=== PATIENT | male | born 1985 | race Caucasian/White ===

== ENCOUNTER 2019-12-28 09:28 | Outpatient (REF) | payer MEDICAID, SELFPAY | END 2019-12-28 09:29 | disposition home or self-care (01) | LOC: HO.LAB 09:28 | PROVIDERS: Visit Provider Internal Medicine | DX: Z20.828 Contact with and (suspected) exposure to other viral communicable diseases (principal) | CPT/HCPCS: C9803; U0003 ==

== ENCOUNTER 2020-01-25 10:51 | Outpatient (REF) | payer MEDICAID, SELFPAY ==
[2020-01-25 12:00] LABS: Anion Gap 13 (12-20); Blood Urea Nitrogen 9 mg/dL (9-16); Calcium 9.1 mg/dL (8.4-10.2); Carbon Dioxide 30 mmol/L (22-29); Chloride 99 mmol/L (96-108); Estimated Glomerular Filt Rate > 60; Potassium 3.2 mmol/l (3.3-5.1); Sodium 139 mmol/L (135-145)
[2020-01-25 12:22] LABS: Renal w Reflex Lab Use Only Order verified
[2020-01-30 10:27] LABS: Metanephrine, Free <25 pg/mL (<=57); Normetanephrines, Free 78 pg/mL (<=148); Total Metanephrine, Free 78 pg/mL (<=205)
[2020-02-05 11:41] LABS: Catecholamine Frac, Total 875 pg/mL
== END 2020-01-25 10:52 | disposition home or self-care (01) ==
LOC: HO.LAB 10:51
PROVIDERS: PCP Internal Medicine Geriatric Medicine; Visit Provider Internal Medicine Nephrology
DX: E87.6 Hypokalemia (principal); R00.2 Palpitations; I25.2 Old myocardial infarction; I10 Essential (primary) hypertension
CPT/HCPCS: 80051; 82088; 82310; 82384; 82565; 83835; 84100; 84520

== ENCOUNTER 2020-04-07 11:37 | Outpatient (REF) | payer MEDICAID, SELFPAY ==
--- NOTE | ~2020-04-07 | XR_ITS ---
EXAMINATION: THORACIC AND LUMBAR SPINE X-RAY CLINICAL INFORMATION: Back pain and right-sided sciatica COMPARISON: None TECHNIQUE: 3 views of the thoracic spine including swimmer's view and 5 views of the lumbar spine FINDINGS: Thoracic spine: The proximal thoracic spine is not well visualized on the lateral or swimmer's view. Bone alignment is normal. No fracture or dislocation is seen. There is degenerative spondylosis of the lower thoracic spine. Paraspinal soft tissues are unremarkable. Lumbar spine: There is mild curvature of the lower lumbar spine to the right. Bone alignment is otherwise normal. No fracture or dislocation is seen. Disc spaces are normal. There is mild degenerative spondylosis of the proximal lumbar spine. Facet joints are normal. XR/XR thoracic spine 3V IMPRESSION: Thoracic spine: Limited visualization of the proximal thoracic spine on the swimmer's and lateral view. Mild degenerative spondylosis of the lower thoracic spine. Lumbar spine: Mild curvature of the lower lumbar spine to the right. Mild degenerative spondylosis of the proximal lumbar spine.
--- NOTE | ~2020-04-07 | XR_ITS ---
EXAMINATION: THORACIC AND LUMBAR SPINE X-RAY CLINICAL INFORMATION: Back pain and right-sided sciatica COMPARISON: None TECHNIQUE: 3 views of the thoracic spine including swimmer's view and 5 views of the lumbar spine FINDINGS: Thoracic spine: The proximal thoracic spine is not well visualized on the lateral or swimmer's view. Bone alignment is normal. No fracture or dislocation is seen. There is degenerative spondylosis of the lower thoracic spine. Paraspinal soft tissues are unremarkable. Lumbar spine: There is mild curvature of the lower lumbar spine to the right. Bone alignment is otherwise normal. No fracture or dislocation is seen. Disc spaces are normal. There is mild degenerative spondylosis of the proximal lumbar spine. Facet joints are normal. XR/XR lumbar spine 4V min IMPRESSION: Thoracic spine: Limited visualization of the proximal thoracic spine on the swimmer's and lateral view. Mild degenerative spondylosis of the lower thoracic spine. Lumbar spine: Mild curvature of the lower lumbar spine to the right. Mild degenerative spondylosis of the proximal lumbar spine.
[2020-04-07 12:17] LABS: MANUAL DIFF FLAG NO
[2020-04-07 12:20] LABS: Basophils Absolute Auto 0.1 X10*3/uL (0.0-0.2); Basophils Percent Auto 0.6 % (0-2); Eosinophils Absolute Auto 0.2 X10*3/uL (0.0-0.4); Eosinophils Percent Auto 2.1 % (0-4); Hematocrit 46.6 % (42-52); Hemoglobin 16.2 g/dl (14.0-18.0); Imm Gran Abs Auto 0.03 X10*3/uL (0.00-0.03); Imm Gran Pct Auto 0.4 % (0.0-0.4); Lymphocytes Absolute Auto 2.1 X10*3/uL (1.2-4.9); Lymphocytes Percent Auto 26.2 % (20-40); Mean Corpuscular HGB Conc 34.8 g/dl (31.0-36.0); Mean Corpuscular Hemoglobin 27.6 pg (27.0-33.0); Mean Corpuscular Volume 79.3 fL (80-98); Mean Platelet Volume 11.2 fL (9.4-12.4); Monocytes Absolute Auto 0.5 X10*3/uL (0.1-1.2); Monocytes Percent Auto 6.2 % (2-11); Neutrophils Absolute Auto 5.2 X10*3/uL (2.0-8.3); Neutrophils Percent Auto 64.5 % (45-73); Platelet Count 258 X10*3/uL (160-400); Red Blood Count 5.88 X10*6/uL (4.60-5.80); Red Cell Distribution Width 13.7 % (11.0-16.0)
[2020-04-07 12:47] LABS: Estimated Average Glucose 160 mg/dL; Hemoglobin A1c % 7.2 %
[2020-04-07 12:54] LABS: Alanine Aminotransferase 78 U/L (0-40); Albumin Level 4.2 g/dL (3.5-5.0); Alkaline Phosphatase 70 U/L (39-117); Anion Gap 13 (12-20); Aspartate Amino Transferase 45 U/L (5-37); Bilirubin Total 0.8 mg/dL (0.0-1.0); Blood Urea Nitrogen 8 mg/dL (9-16); Calcium 9.2 mg/dL (8.4-10.2); Carbon Dioxide 30 mmol/L (22-29); Chloride 99 mmol/L (96-108); Cholesterol 222 mg/dL; Estimated Glomerular Filt Rate > 60; Glucose Random 140 mg/dL (60-115); HDL Cholesterol 30 mg/dL; LDL Cholesterol Calculated 162 mg/dl; Potassium 3.2 mmol/L (3.3-5.1); Sodium 139 mmol/L (135-145); Total Protein 7.6 g/dL (6.5-8.0); Triglycerides 152 mg/dL
[2020-04-07 12:58] LABS: Microalbum/Creatinine Ratio Ur 35.5 ug/mg cr
[2020-04-07 13:03] LABS: TSH reflex Free T4 1.19 uIU/mL (0.32-4.0); Vitamin D 25-OH Total 20.8 ng/mL (>30)
== END 2020-04-07 11:38 | disposition home or self-care (01) ==
LOC: HO.LAB 11:37
PROVIDERS: Visit Provider Nurse Practitioner Family
DX: E66.01 Morbid (severe) obesity due to excess calories (principal); I10 Essential (primary) hypertension; I16.0 Hypertensive urgency; M54.41 Lumbago with sciatica, right side; M54.9 Dorsalgia, unspecified
CPT/HCPCS: 36415; 72072; 72110; 80053; 80061; 82043; 82306; 83036; 84443; 85025

== ENCOUNTER 2020-04-17 09:00 | Outpatient (REF) | payer MEDICAID, SELFPAY | END 2020-04-17 09:01 | disposition home or self-care (01) | LOC: HO.LAB 09:00 | PROVIDERS: PCP Nurse Practitioner Family; Visit Provider Internal Medicine | DX: Z20.822 Contact with and (suspected) exposure to COVID-19 (principal) | CPT/HCPCS: 36415; C9803; U0003; U0005 ==

== ENCOUNTER 2020-04-30 13:42 | Emergency (ER) | payer MEDICAID, SELFPAY ==
--- NOTE | ~2020-04-30 | XR_ITS ---
EXAMINATION: XR KNEE, BILATERAL XR ANKLE, LEFT CLINICAL INFORMATION: Fall, pain. COMPARISON: Left ankle 09/08/2019. TECHNIQUE: 4 views each knee. Left ankle 3 views. FINDINGS: LEFT KNEE: The tricompartment joint space is maintained normal. No fracture, bony erosive changes or loose body seen. RIGHT KNEE: The tricompartment joint space is normal. There is no bony erosive changes. There are no loose bodies seen. LEFT ANKLE: There is lateral malleolar soft tissue swelling. There is an old healed lateral malleolar fracture. The ankle mortise and subtalar joints are normal. No acute fracture or dislocation seen. XR/XR knee LT 4V IMPRESSION: Unremarkable bilateral knee exam. Moderate lateral malleolar soft tissue swelling. There is an old healed lateral malleolar fracture from 2019. No recurrent acute fracture seen.
--- NOTE | ~2020-04-30 | XR_ITS ---
EXAMINATION: XR KNEE, BILATERAL XR ANKLE, LEFT CLINICAL INFORMATION: Fall, pain. COMPARISON: Left ankle 09/08/2019. TECHNIQUE: 4 views each knee. Left ankle 3 views. FINDINGS: LEFT KNEE: The tricompartment joint space is maintained normal. No fracture, bony erosive changes or loose body seen. RIGHT KNEE: The tricompartment joint space is normal. There is no bony erosive changes. There are no loose bodies seen. LEFT ANKLE: There is lateral malleolar soft tissue swelling. There is an old healed lateral malleolar fracture. The ankle mortise and subtalar joints are normal. No acute fracture or dislocation seen. XR/XR ankle LT min 3V IMPRESSION: Unremarkable bilateral knee exam. Moderate lateral malleolar soft tissue swelling. There is an old healed lateral malleolar fracture from 2019. No recurrent acute fracture seen.
--- NOTE | ~2020-04-30 | XR_ITS ---
EXAMINATION: XR KNEE, BILATERAL XR ANKLE, LEFT CLINICAL INFORMATION: Fall, pain. COMPARISON: Left ankle 09/08/2019. TECHNIQUE: 4 views each knee. Left ankle 3 views. FINDINGS: LEFT KNEE: The tricompartment joint space is maintained normal. No fracture, bony erosive changes or loose body seen. RIGHT KNEE: The tricompartment joint space is normal. There is no bony erosive changes. There are no loose bodies seen. LEFT ANKLE: There is lateral malleolar soft tissue swelling. There is an old healed lateral malleolar fracture. The ankle mortise and subtalar joints are normal. No acute fracture or dislocation seen. XR/XR knee RT 4V IMPRESSION: Unremarkable bilateral knee exam. Moderate lateral malleolar soft tissue swelling. There is an old healed lateral malleolar fracture from 2019. No recurrent acute fracture seen.
[2020-04-30 13:55] VITALS: BP 211/126; PULSE 90; RESP 16; TEMP 36.9; O2SAT 96; BMI 48.6
--- NOTE | 2020-04-30 14:14 | ED_ITS ---
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 The patient tells me he tripped and fell landing on both of his knees. Denies hitting his head or loss of consciousness. Here with complaints of bilateral knee pain left greater than right and left ankle pain. No headache, nausea, vomiting, vision changes, chest pain. Of note, the patient is noted to be hypertensive on arrival. He tells me that he has blood pressure is managed by his primary products inspectors and always runs high. They did increase his dose of Coreg 1 month ago from 12.5 mg to 25 mg twice daily. He has been compliant w ith his medications and took his doses this morning. He is currently taking norvasc 10mg daily, amiloride 5mg daily, coreg 25mg BID, hydralazine 50mg TID, doxazosin 2mg BID. Related Data Previous Rx's Medication Instructions Recorded acetaminophen [Tylenol] 650 mg PO Q6H PRN #30 tab 04/30/20 cyclobenzaprine 10 mg PO TID PRN #10 tab 04/30/20 minoxidil 5 mg PO BID #30 tab 04/30/20 Allergies Allergy/AdvReac Type Severity Reaction Status Date / Time No Known Allergies Allergy Unverified 11/08/19 19:05 [No Known Allergies*] Review of Systems Review of Systems: Yes all other systems are reviewed and are negative Constitutional: Constitutional: Reports no additional constitutional complaints, Denies body ache(s), Denies chills, Denies fever(s), Denies headache(s) and Denies weakness Eyes: Eyes: Reports no additional eye complaints and Denies change in vision ENT: Reports system reviewed and no additional complaints, except as documented, Denies dizziness, Denies headache(s), Denies nasal congestion, Denies nasal discharge and Denies neck pain Cardiovascular: Cardiovascular: Reports no additional cardiovascular complaints, Denies chest pain, Denies leg edema and Denies dyspnea Respiratory: Respiratory: Reports no additional respiratory complaints, Denies cough and Denies dyspnea Gastrointestinal: Gastrointestinal: Reports no additional gastrointestinal complaints, Denies abdominal pain, Denies diarrhea, Denies nausea and Denies vomiting Genitourinary: Genitourinary: Denies urinary incontinence Musculoskeletal: Musculoskeletal: Reports no additional musculoskeletal complaints, Denies back pain, Reports arthralgias, Denies joint swelling, Denies limited range of motion, Denies neck pain, Denies numbness and Denies tingling Integumentary/Breasts: Skin/Breast: Reports system reviewed and no additional complaints, except as docu and Denies rash Neurologic: Reports system reviewed and no additional complaints, except as documented, Denies Abnormal speech present, Denies dizziness, Denies h eadache(s), Denies numbness, Denies tingling and Denies weakness PMFSH Past Medical History Attestation statement: The following information was validated with the patient. Source: old records reviewed and nursing notes reviewed Medical History HTN (hypertension) Sleep apnea Social History Social History Advance Directives: Yes Advance Directives Information Provided: Yes Advance Directives on File: No Physical Exam Vital Signs: Vital Signs: Last Vital Signs Temp 98.5 F 04/30/20 13:55 Pulse 76 04/30/20 16:33 Resp 16 04/30/20 16:33 BP 218/98 H 04/30/20 16:33 Pulse Ox 96 04/30/20 16:33 Body Mass Index 48.6 Const: General: cooperative, healthy appearing, comfortable and no acute distress Orientation/consciousness: patient oriented x3 Limitations: no limitations HENMT: Head: Yes normal to inspection Ears: hearing grossly normal bilaterally General nose exam: Normal external nose present Face and s inus: Yes normal facial exam Mouth: Normal oral and palatal mucosa present Throat: Yes posterior oropharynx normal Eyes: General: appearance normal, both eyes and all related structures Pupils: Equal, round and reactive pupils present Neck: Neck: Yes normal visual inspection Chest: Chest palpation & inspection: normal inspection of the chest Resp: Effort & Inspection: normal respiratory effort Auscultation: clear to auscultation bilaterally Cardio: Rate: regular rate Rhythm: regular rhythm Peripheral pulses: Peripheral pulses 2+ throughout GI: Inspection: Yes normal to inspection Palpation (GI): Soft to palpation and nontender Auscultation: normal bowel sounds Back/Spine/Pelvis: Thoracic/Lumbar Spine: thoracic and lumbar spine normal to inspection Skin: General skin exam: no rashes or lesions noted Neuro: General: patient oriented x3, no focal motor deficits and normal sensation to monofilament Cranial nerves: Yes Equal, round and reactive pupils present Cognition (Neuro): normal cognition Speech: No Abnormal speech present Gait exam (Neuro): Normal gait present Motor exam (neuro): 5/5 motor strength present throughout Extrem: Other: Tenderness to the bilateral anterior knees. Full range of motion of the knees. There is no appreciable swelling, deformity, warmth or redness. Patient also has tenderness over the lateral left ankle with no obvious deformity or ecchymosis. Full range of motion with palpable distal pul ses. General: Yes normal to inspection Course Course Course Narrative: 34-year-old male here with bilateral knee pain left greater than right and left ankle pain status post mechanical fall 2 days ago. Of note, patient noted to be hypertensive, asymptomatic. Will need x-rays, check renal function/UA. 1730-x-rays unremarkable. Renal function at baseline. UA shows no protein. Potassium is 2.7 and mildly low patient has history of same. It was replaced with oral K-Chlor. Spoke to Dr. White from Nephrology. Due to severe hypertension he actually recommended the patient be admitted for medication management. However the patient does not want to stay in the hospital and refused admission. Therefore Dr White requested the patient be started on minoxidil 5 mg twice daily. He has a follow-up appointment with Nephrology on May 20. Discuss this with the patient with a painter rough. He is aware that he needs to be compliant with all his medications. He did decline admission. He is aware that poorly controlled high blood pressure can lead to renal failure and ICH as well as additional complications. BP on discharge 211/98. Reviewed worrisome signs and and when to return to the emergency department. Comfortable discharge home. MDM - Extremity Injury (Lower) Medical Records Attestation: I reviewed the patient's medical records. Lab Data Attestation: I reviewed the patient's lab results. Result diagrams: 04/30/20 15:05 04/30/20 15:05 Labs: Lab Results 04/30/20 04/30/20 04/30/20 Range/Units 15:05 15:05 16:10 WBC 11.2 H (4.8-10.8) X10*3/uL RBC 5.89 H (4.60-5.80) X10*6/uL Hgb 16.2 (14.0-18.0) g/dl Hct 47.0 (42-52) % MCV 79.8 L (80-98) fL MCH 27.5 (27.0-33.0) pg MCHC 34.5 (31.0-36.0) g/dl RDW 14.1 (11.0-16.0) % Plt Count 235 (160-400) X10*3/uL MPV 11.2 (9.4-12.4) fL Immature Gran % (Auto) 0.2 (0.0-0.4) % Neut % (Auto) 73.4 H (45-73) % Lymph % (Auto) 19.8 L (20-40) % [place] % (Auto) 5.5 (2-11) % Eos % (Auto) 0.7 (0-4) % Baso % (Auto) 0.4 (0-2) % Lymph # (Auto) 2.2 (1.2-4.9) X10*3/uL [place] # (Auto) 0.6 (0.1-1.2) X10*3/uL Eos # (Auto) 0.1 (0.0-0.4) X10*3/uL Baso # (Auto) 0.1 (0.0-0.2) X10*3/uL Abs Immat Gran (auto) 0.02 (0.00-0.03) X10*3/uL Absolute Neuts (auto) 8.2 (2.0-8.3) X10*3/uL Absolute Nucleated RBC 0.000 (0.0-0.012) X10*3/uL Nucleated RBC % (auto) 0.0 (0.0-0.2) /100WBC Sodium 139 (135-145) mmol/L Potassium 2.7 L (3.3-5.1) mmol/L Chloride 100 (96-108) mmol/L Carbon Dioxide 30 H (22-29) mmol/L Anion Gap 12 (12-20) BUN 10 (9-16) mg/dL Creatinine 0.85 (0.5-1.4) mg/dL Estim Creat Clear Calc 176.8 Estimated GFR > 60 Random Glucose 131 H (60-115) mg/dL Calcium 9.1 (8.4-10.2) mg/dL Urine Color YELLOW Urine Appearance CLEAR Urine pH 6.0 (5.0-8.0) Ur Specific [place] 1.025 (1.005-1.025) Urine Protein NEG (NEG-TRACE) MG/DL Urine Glucose (UA) NEG (NEG) MG/DL Urine Ketones NEG (NEG) MG/DL Urine Blood TRACE (NEG) Urine Nitrite NEG (NEG) Ur Leukocyte Esterase NEG (NEG) Urine RBC 0-2 (0) /HPF Urine WBC 0 (0-4) /HPF Ur Squamous Epith Cells 1+ /LPF Urine Bacteria TRACE /LPF Imaging Data bilateral knee/left ankle xray: Attestation: I personally reviewed and interpreted this imaging study as follows: Radiologist's impression: EXAMINATION: XR KNEE, BILATERAL XR ANKLE, LEFT CLINICAL INFORMATION: Fall, pain. COMPARISON: Left ankle 09/08/2019. TECHNIQUE: 4 views each knee. Left ankle 3 views. FINDINGS: LEFT KNEE: The tricompartment joint space is maintained normal. No fracture, bony erosive changes or loose body seen. RIGHT KNEE: The tricompartment joint space is normal. There is no bony erosive changes. There are no loose bodies seen. LEFT ANKLE: There is lateral malleolar soft tissue swelling. There is an old healed lateral malleolar fracture. The ankle mortise and subtalar joints are normal. No acute fracture or dislocation seen. XR/XR knee RT 4V IMPRESSION: Unremarkable bilateral knee exam. Moderate lateral malleolar soft tissue swelling. There is an old healed lateral malleolar fracture from 2019. No recurrent acute fracture seen. Discharge Plan Discharge Clinical Impression: Ankle sprain and strain, Hypertension, uncontrolled, Acute hypokalemia Contusion Qualifiers: Encounter type: initial encounter Contusion area: knee Laterality: unspecified laterality Qualified Code(s): S80.00XA - Contusion of unspecified knee, initial encounter Patient Disposition: Home, Self-Care Instructions: Hypokalemia (ED), Contusion in Adults (ED), Hypertension (ED) Additional Instructions: Your blood pressure is dangerously high and can cause kidney failure and brain bleeds. Return here for severe headache, chest pain. Continue to monitor blood pressures at home It was recommended to stay in the hospital you did not want to do this. I spoke to your primary products inspectors Dr. White and he recommended adding a new medication. Keep your appointment with him Prescriptions: New acetaminophen [Tylenol] 325 mg tablet 650 mg PO Q6H PRN (Reason: pain) Qty: 30 RF: 0 cyclobenzaprine 10 mg tablet 10 mg PO TID PRN (Reason: muscle spasm) Qty: 10 RF: 0 minoxidil 2.5 mg tablet 5 mg PO BID Qty: 30 RF: 0 Referrals: Dhiraj White MD [Physician] - 2 days Print Language: Tamazight
[2020-04-30 15:12] LABS: MANUAL DIFF FLAG NO
[2020-04-30 15:16] LABS: Basophils Absolute Auto 0.1 X10*3/uL (0.0-0.2); Basophils Percent Auto 0.4 % (0-2); Eosinophils Absolute Auto 0.1 X10*3/uL (0.0-0.4); Eosinophils Percent Auto 0.7 % (0-4); Hemoglobin 16.2 g/dl (14.0-18.0); Imm Gran Abs Auto 0.02 X10*3/uL (0.00-0.03); Imm Gran Pct Auto 0.2 % (0.0-0.4); Lymphocytes Absolute Auto 2.2 X10*3/uL (1.2-4.9); Lymphocytes Percent Auto 19.8 % (20-40); Mean Corpuscular HGB Conc 34.5 g/dl (31.0-36.0); Mean Corpuscular Hemoglobin 27.5 pg (27.0-33.0); Mean Corpuscular Volume 79.8 fL (80-98); Mean Platelet Volume 11.2 fL (9.4-12.4); Monocytes Absolute Auto 0.6 X10*3/uL (0.1-1.2); Monocytes Percent Auto 5.5 % (2-11); Neutrophils Absolute Auto 8.2 X10*3/uL (2.0-8.3); Neutrophils Percent Auto 73.4 % (45-73); Platelet Count 235 X10*3/uL (160-400); Red Blood Count 5.89 X10*6/uL (4.60-5.80); Red Cell Distribution Width 14.1 % (11.0-16.0); White Blood Count 11.2 X10*3/uL (4.8-10.8)
[2020-04-30 15:51] LABS: Blood Urea Nitrogen 10 mg/dL (9-16); Calcium 9.1 mg/dL (8.4-10.2); Creatinine Clr Calc Pharmacy 176.8; Estimated Glomerular Filt Rate > 60; Glucose Random 131 mg/dL (60-115)
[2020-04-30 15:59] LABS: Anion Gap 12 (12-20); Carbon Dioxide 30 mmol/L (22-29); Chloride 100 mmol/L (96-108); Potassium 2.7 mmol/L (3.3-5.1); Sodium 139 mmol/L (135-145)
[2020-04-30 16:23] LABS: Glucose Urine UA NEG (NEG); Leukocyte Esterase Urine NEG (NEG); Nitrite Urine NEG (NEG); Specific Gravity - Urine 1.025 (1.005-1.025); Urine Blood TRACE (NEG); Urine Ketones NEG (NEG); Urine Protein NEG (NEG-TRACE)
[2020-04-30 16:24] LABS: Appearance Urine CLEAR; Color Urine YELLOW
[2020-04-30] MEDS: Potassium Chloride ER 20 MEQ TAB.ER.PRT 60 MEQ PO (16:31)
[2020-04-30 16:33] VITALS: BP 218/98; PULSE 76; RESP 16; O2SAT 96
[2020-04-30 16:37] LABS: Bacteria Urine TRACE /LPF; RBC Urine 0-2 /HPF (0); Squamous Epithelial Cell Urine 1+ /LPF; WBC Urine 0 /HPF (0-4)
== END 2020-04-30 19:10 | disposition home or self-care (01) ==
PROVIDERS: Nurse Practitioner Family; Emergency Provider Emergency Medicine Emergency Medical Services; PCP Internal Medicine
DX: S93.402A Sprain of unspecified ligament of left ankle, initial encounter (principal); S96.912A Strain of unspecified muscle and tendon at ankle and foot level, left foot, initial encounter; S80.02XA Contusion of left knee, initial encounter; S80.01XA Contusion of right knee, initial encounter; W01.0XXA Fall on same level from slipping, tripping and stumbling without subsequent striking against object, initial encounter; I10 Essential (primary) hypertension; E87.6 Hypokalemia; Y93.9 Activity, unspecified; Y92.019 Unspecified place in single-family (private) house as the place of occurrence of the external cause; Y99.9 Unspecified external cause status; Z79.899 Other long term (current) drug therapy
CPT/HCPCS: 36415; 73564; 73610; 80048; 81001; 85025; 99283; 99284

== ENCOUNTER → 2020-05-15 11:51 | Outpatient (BNVA) | payer MEDICAID, SELFPAY | PROVIDERS: PCP Internal Medicine; Visit Provider Surgery | DX: Z01.818 Encounter for other preprocedural examination (principal); E66.01 Morbid (severe) obesity due to excess calories; Z68.42 Body mass index [BMI] 45.0-49.9, adult; R06.02 Shortness of breath | CPT/HCPCS: 99212 ==

== ENCOUNTER 2020-05-16 07:39 | Outpatient (REF) | payer MEDICAID, SELFPAY ==
--- NOTE | ~2020-05-16 | XR_ITS ---
EXAMINATION: XR CHEST CLINICAL INFORMATION: Shortness of breath COMPARISON: Previous chest x-rays most recent March 2019 TECHNIQUE: 2 views of the chest were obtained. FINDINGS: The cardiac and mediastinal contours are stable. The lungs are clear. There is no pleural effusion or pneumothorax. Bony structures are unremarkable. XR/XR chest 2V IMPRESSION: Unremarkable examination.
--- NOTE | 2020-05-16 07:52 | ECG_ITS ---
Test Reason : SOB Blood Pressure : / mmHG Vent. Rate : 078 BPM Atrial Rate : 078 BPM P-R Int : 174 ms QRS Dur : 116 ms QT Int : 442 ms P-R-T Axes : 049 -07 035 degrees QTc Int : 503 ms Normal sinus rhythm Left ventricular hypertrophy with QRS widening Prolonged QT Abnormal ECG When compared with ECG of 08-SEP-2019 14:27, No significant change was found Referred By: Pili Serrano Electronically Signed By:VESTA MUSTAFA
[2020-05-16 08:51] LABS: Estimated Average Glucose 128 mg/dL; Hemoglobin A1c % 6.1 %
[2020-05-16 08:58] LABS: C Reactive Protein 3.26 mg/dL (< or = 0.50); Iron 82 mcg/dL (45-160); Percent Iron Saturation 28 % (15-50); Total Iron Binding Capacity 296 mcg/dL (228-428); Unsaturated Iron Binding 214 ug/dL
[2020-05-16 09:23] LABS: Thyroid Stimulating Hormone 1.38 uIU/mL (0.32-4.0)
[2020-05-16 09:26] LABS: Vitamin B12 258 pg/mL (200-900)
[2020-05-17 14:07] LABS: H Pylori Breath Test NOT DETECTED (NOT DETECTED)
[2020-05-20 02:02] LABS: Zinc 81 mcg/dL (60-130)
[2020-05-20 17:37] LABS: Calcium (PTHI) 9.2 mg/dL (8.6-10.3); PTHI 114 pg/mL (14-64)
[2020-05-21 12:23] LABS: Vitamin A 25 mcg/dL (38-98)
[2020-05-21 12:46] LABS: Vitamin B1 <6 nmol/L (8-30)
== END 2020-05-16 07:40 | disposition home or self-care (01) ==
LOC: HO.LAB 07:39
PROVIDERS: PCP Internal Medicine; Visit Provider Surgery
DX: Z01.818 Encounter for other preprocedural examination (principal); R06.02 Shortness of breath; K91.2 Postsurgical malabsorption, not elsewhere classified; I51.7 Cardiomegaly; I45.81 Long QT syndrome; Z90.3 Acquired absence of stomach [part of]
CPT/HCPCS: 36415; 71046; 82607; 83013; 83036; 83540; 83970; 84425; 84443; 84590; 84630; 86140; 93005; 99211

== ENCOUNTER → 2020-06-02 08:15 | Outpatient (BNVA) | payer MEDICAID, SELFPAY | PROVIDERS: PCP Internal Medicine; Visit Provider Surgery | DX: E66.01 Morbid (severe) obesity due to excess calories (principal); Z68.42 Body mass index [BMI] 45.0-49.9, adult; E55.9 Vitamin D deficiency, unspecified | CPT/HCPCS: 99212 ==

== ENCOUNTER → 2020-06-16 08:26 | Outpatient (BNVA) | payer MEDICAID, SELFPAY | PROVIDERS: PCP Internal Medicine; Visit Provider Dietitian, Registered ==

== ENCOUNTER → 2020-06-17 08:52 | Outpatient (BNVA) | payer MEDICAID, SELFPAY | PROVIDERS: Visit Provider Dietitian, Registered | DX: E66.01 Morbid (severe) obesity due to excess calories (principal); Z68.41 Body mass index [BMI] 40.0-44.9, adult | CPT/HCPCS: 97802 ==

== ENCOUNTER → 2020-07-01 09:31 | Outpatient (BNVA) | payer MEDICAID, SELFPAY | PROVIDERS: PCP Internal Medicine; Visit Provider Surgery | DX: E66.01 Morbid (severe) obesity due to excess calories (principal); Z68.42 Body mass index [BMI] 45.0-49.9, adult | CPT/HCPCS: 99212 ==

== ENCOUNTER → 2020-07-11 08:43 | Outpatient (BNVA) | payer MEDICAID, SELFPAY | PROVIDERS: PCP Internal Medicine; Visit Provider Physician Assistant | DX: E66.9 Obesity, unspecified (principal); Z68.39 Body mass index [BMI] 39.0-39.9, adult | CPT/HCPCS: 99212 ==

== ENCOUNTER 2020-07-16 10:42 | Inpatient (IN) | payer MEDICAID, SELFPAY ==
[2020-07-08 09:34] VITALS: BMI 40.7
--- NOTE | 2020-07-11 12:00 | ECG_ITS ---
Test Reason : SOB Blood Pressure : / mmHG Vent. Rate : 065 BPM Atrial Rate : 065 BPM P-R Int : 182 ms QRS Dur : 122 ms QT Int : 458 ms P-R-T Axes : 068 002 038 degrees QTc Int : 476 ms Normal sinus rhythm Non-specific intra-ventricular conduction delay Borderline ECG When compared with ECG of 16-MAY-2020 08:00, No significant change was found Referred By: Pili Serrano Electronically Signed By:ALYCIA FUENTES MD
[2020-07-11 13:11] LABS: MANUAL DIFF FLAG NO
[2020-07-11 13:16] LABS: Basophils Percent Auto 0.5 % (0-2); Eosinophils Percent Auto 0.3 % (0-4); Hematocrit 45.5 % (42-52); Hemoglobin 15.1 g/dl (14.0-18.0); Imm Gran Abs Auto 0.04 X10*3/uL (0.00-0.03); Imm Gran Pct Auto 0.5 % (0.0-0.4); Lymphocytes Absolute Auto 1.1 X10*3/uL (1.2-4.9); Lymphocytes Percent Auto 15.5 % (20-40); Mean Corpuscular HGB Conc 33.2 g/dl (31.0-36.0); Mean Corpuscular Hemoglobin 27.4 pg (27.0-33.0); Mean Corpuscular Volume 82.6 fL (80-98); Mean Platelet Volume 12.5 fL (9.4-12.4); Monocytes Absolute Auto 0.5 X10*3/uL (0.1-1.2); Monocytes Percent Auto 6.3 % (2-11); Neutrophils Absolute Auto 5.6 X10*3/uL (2.0-8.3); Neutrophils Percent Auto 76.9 % (45-73); Platelet Count 195 X10*3/uL (160-400); Red Blood Count 5.51 X10*6/uL (4.60-5.80); Red Cell Distribution Width 14.6 % (11.0-16.0); White Blood Count 7.3 X10*3/uL (4.8-10.8)
[2020-07-11 13:19] LABS: INTERNATIONAL NORM RATIO 1.4 (0.9-1.1)
[2020-07-11 13:19] LABS: Glucose Urine UA NEG (NEG); Leukocyte Esterase Urine NEG (NEG); Nitrite Urine NEG (NEG); Specific Gravity - Urine 1.025 (1.005-1.025); Urine Blood TRACE (NEG); Urine Ketones 40 MG/DL (NEG); Urine Protein 1+ MG/DL (NEG-TRACE)
[2020-07-11 13:23] LABS: Appearance Urine HAZY; Color Urine YELLOW
[2020-07-11 13:34] LABS: Hyaline Casts Urine 0-2 /LPF; Mucus Urine 1+ /LPF; Squamous Epithelial Cell Urine 1+ /LPF
[2020-07-11 13:36] LABS: Partial Thromboplastin Time 39.6 SEC (24.1-38.0)
[2020-07-11 14:04] LABS: Albumin Level 4.1 g/dL (3.5-5.0); Blood Urea Nitrogen 17 mg/dL (9-16); Calcium 9.6 mg/dL (8.4-10.2); Estimated Glomerular Filt Rate > 60; Glucose Random 79 mg/dL (60-115)
[2020-07-11 14:20] LABS: Anion Gap 16 (12-20); Carbon Dioxide 35 mmol/L (22-29); Chloride 96 mmol/L (96-108); Potassium 2.9 mmol/L (3.3-5.1); Sodium 144 mmol/L (135-145)
--- NOTE | 2020-07-14 10:39 | P.CONAN_ITS ---
Documented by User: Madalyn Shin 07/15/20 09:22 HPI - Anesthesia Eval Consult details Narrative: 34yo M for Gastrectomy Sleeve Low K - Dr Serrano aware needs normal value preop per Dr Hendrickson. Repeat DOS. PMFSH Active Problems Active Problems: All Active Problems (Updated 07/11/20 @ 11:52 by Pili Serrano MD) Obesity (Acute) BMI 39.0-39.9,adult (Acute) Preoperative examination (Acute) Shortness of breath (Acute) Morbid obesity due to excess calories (Acute) BMI 45.0-49.9, adult (Acute) Vitamin A deficiency (Acute) Vitamin B1 deficiency (Acute) Vitamin D deficiency (Acute) Past Medical History Medical History Anxiety Arthritis Back pain COVID-19 vaccine series completed Depression HTN (hypertension) Pre-diabetes Sleep apnea Family History Family History Father Hypertension Diabetes mellitus Mother Hypertension Brother Hypertension Depressed Mental problems Son No problems noted. Surgical History Surgical History Hx of oral surgery No pertinent past surgical history Social History Social History Are you a primary aged or disabled carer to a significant other at home: No Do you presently have visiting nurse or other home services: No Alcohol intake: never Use of substances other than those prescribed or required for medical reasons: No Have you been hit, kicked, punched, or otherwise hurt by someone within the past year? If so, by whom?: No Are you DNR?: No Advance Directives: No Advance Directives Information Provided: No Advance Directives on File: No Recently lost weight without trying: No How much weight loss: 34pounds or more Nutrition Risks: No Nutritional Risk Poor oral hygiene: No Meds Allergies Allergy/AdvReac Type Severity Reaction Status Date / Time No Known Allergies Allergy Verified 07/16/20 11:04 [No Known Allergies*] Home Medications Medication Instructions Recorded Confirmed Last Taken Type amlodipine 5 mg tablet 5 mg PO BID 05/15/20 07/11/20 Unknown History carvedilol 12.5 mg tablet 12.5 mg PO BID 05/15/20 07/11/20 Unknown History hydralazine 50 mg tablet 50 mg PO TID 05/15/20 07/11/20 Unknown History metformin 1,000 mg tablet 1,000 mg PO DAILY 05/15/20 07/11/20 Unknown History trazodone 100 mg tablet 100 mg PO BEDTIME PRN 05/15/20 07/11/20 Unknown History zolpidem 12.5 mg tablet,extended 12.5 mg PO BEDTIME PRN 05/15/20 07/11/20 Unknown History release,multiphase Exam Exam Date and Time: July 14, 2020 1039 Height,Weight and Vital Signs: Height 5 ft 9 in Weight 125.191 kg Pertinent Lab Results Pertinent Lab Results: Laboratory Tests 07/11/20 07/11/20 07/11/20 12:25 12:25 12:25 WBC 7.3 RBC 5.51 Hgb 15.1 Hct 45.5 MCV 82.6 MCH 27.4 MCHC 33.2 RDW 14.6 Plt Count 195 MPV 12.5 H Immature Gran % (Auto) 0.5 H Neut % (Auto) 76.9 H Lymph % (Auto) 15.5 L [place] % (Auto) 6.3 Eos % (Auto) 0.3 Baso % (Auto) 0.5 Lymph # (Auto) 1.1 L [place] # (Auto) 0.5 Eos # (Auto) 0.0 Baso # (Auto) 0.0 Abs Immat Gran (auto) 0.04 H Absolute Neuts (auto) 5.6 Absolute Nucleated RBC 0.000 Nucleated RBC % (auto) 0.0 PT 17.0 H INR 1.4 H APTT 39.6 H Sodium 144 Potassium 2.9 L Chloride 96 Carbon Dioxide 35 H Anion Gap 16 BUN 17 H D Creatinine 1.08 Estim Creat Clear Calc 126.0 Estimated GFR > 60 Random Glucose 79 D Calcium 9.6 Albumin 4.1 Urine Color Urine Appearance Urine pH Ur Specific [place] Urine Protein Urine Glucose (UA) Urine Ketones Urine Blood Urine Nitrite Ur Leukocyte Esterase Urine RBC Urine WBC Ur Squamous Epith Cells Urine Bacteria Hyaline Casts Urine Mucus Blood Type Antibody Screen 07/11/20 07/11/20 12:25 Unknown WBC RBC Hgb Hct MCV MCH MCHC RDW Plt Count MPV Immature Gran % (Auto) Neut % (Auto) Lymph % (Auto) [place] % (Auto) Eos % (Auto) Baso % (Auto) Lymph # (Auto) [place] # (Auto) Eos # (Auto) Baso # (Auto) Abs Immat Gran (auto) Absolute Neuts (auto) Absolute Nucleated RBC Nucleated RBC % (auto) PT INR APTT Sodium Potassium Chloride Carbon Dioxide Anion Gap BUN Creatinine Estim Creat Clear Calc Estimated GFR Random Glucose Calcium Albumin Urine Color YELLOW Urine Appearance HAZY Urine pH 6.0 Ur Specific [place] 1.025 Urine Protein 1+ H Urine Glucose (UA) NEG Urine Ketones 40 Urine Blood TRACE Urine Nitrite NEG Ur Leukocyte Esterase NEG Urine RBC 1-4 Urine WBC 1-4 Ur Squamous Epith Cells 1+ Urine Bacteria NONE Hyaline Casts 0-2 Urine Mucus 1+ Blood Type A Positive Antibody Screen NEGATIVE Narrative Narrative: EKG 06/2020 Vent. Rate : 065 BPM Atrial Rate : 065 BPM P-R Int : 182 ms QRS Dur : 122 ms QT Int : 458 ms P-R-T Axes : 068 002 038 degrees QTc Int : 476 ms Normal sinus rhythm Non-specific intra-ventricular conduction delay Borderline ECG When compared with ECG of 16-MAY-2020 08:00, No significant change was found Assessment and Plan Assessment Anesthesia Assessment: Chart Reviewed Documented by User: Lucy Olivarez 07/16/20 11:18 [facility] Past Medical History Medical History Anxiety Arthritis Back pain COVID-19 vaccine series completed Depression HTN (hypertension) Pre-diabetes Sleep apnea Family History Family History Father Hypertension Diabetes mellitus Mother Hypertension Brother Hypertension Depressed Mental problems Son No problems noted. Surgical History Surgical History Hx of oral surgery No pertinent past surgical history Social History Social History Are you a primary aged or disabled carer to a significant other at home: No Do you presently have visiting nurse or other home services: No Alcohol intake: never Use of substances other than those prescribed or required for medical reasons: No Have you been hit, kicked, punched, or otherwise hurt by someone within the past year? If so, by whom?: No Are you DNR?: No Advance Directives: No Advance Directives Information Provided: No Advance Directives on File: No Recently lost weight without trying: No How much weight loss: 34pounds or more Nutrition Risks: No Nutritional Risk Poor oral hygiene: No Meds Allergies Allergy/AdvReac Type Severity Reaction Status Date / Time No Known Allergies Allergy Verified 07/16/20 11:04 [No Known Allergies*] Home Medications Medication Instructions Recorded Confirmed Last Taken Type amlodipine 5 mg tablet 5 mg PO BID 05/15/20 07/11/20 Unknown History carvedilol 12.5 mg tablet 12.5 mg PO BID 05/15/20 07/11/20 Unknown History hydralazine 50 mg tablet 50 mg PO TID 05/15/20 07/11/20 Unknown History metformin 1,000 mg tablet 1,000 mg PO DAILY 05/15/20 07/11/20 Unknown History trazodone 100 mg tablet 100 mg PO BEDTIME PRN 05/15/20 07/11/20 Unknown History zolpidem 12.5 mg tablet,extended 12.5 mg PO BEDTIME PRN 05/15/20 07/11/20 Unknown History release,multiphase Exam Airway Mallampati Class: III TM Dist: >3cm Neck ROM: Full
--- NOTE | 2020-07-15 11:15 | MHC.SHP ---
Pre-Procedural Eval Section B Chief Complaint: obesity Allergies: Allergies Allergy/AdvReac Type Severity Reaction Status Date / Time No Known Allergies Allergy Verified 07/11/20 11:50 [No Known Allergies*] Plan I have reviewed the history and physical and performed a pertinent physical examination on my patient. No changes have occurred unless specified.
[2020-07-16] VITALS (9 sets, daily range): BP systolic 146–185; BP diastolic 80–98; PULSE 70–111; RESP 14–20; TEMP 36.2–36.8; O2SAT 95–100
[2020-07-16 11:20] LABS: COVID-19 Test Negative (Negative); IDNOW Serial# 9DD0AD1C
[2020-07-16] MEDS: Lactated Ringers 1,000 ML 100 ML IVCONT (11:25)
[2020-07-16 11:42] LABS: Anion Gap 12 (12-20); Carbon Dioxide 33 mmol/L (22-29); Chloride 101 mmol/L (96-108); Potassium 3.4 mmol/L (3.3-5.1); Sodium 143 mmol/L (135-145)
--- NOTE | 2020-07-16 15:51 | PM.OP ---
Brief Operative Note Date of Service: 07/16/20 Pre-op diagnosis: Morbid obesity, BMI of 41.1, hypertension, and diabetes mellitus type 2 Post-op diagnosis: same Procedure: Laparoscopic sleeve gastrectomy, intraoperative endoscopy, and Bob block Implants: None Surgeon: Pili Serrano MD Anesthesia: GETA Was an Painting Machine Operator used for this Procedure?: Yes Painting Machine Operator: Mirna Leal Estimated blood loss (mL): 10 Pathology: other (Partial gastrectomy) Condition: stable Disposition: PACU
--- NOTE | 2020-07-16 16:04 | P.OP_ITS ---
Operative Note Operative Note Date of Service: 07/16/20 Narrative: Patient was brought into the operating room and placed on the operating room table in the supine position. General anesthesia was induced. Normal DVT prophylaxis was instituted and the patient received 2 grams of cefotetan preoperatively. The abdomen was then prepped and draped in the normal sterile fashion. A safety time-out was performed. A mixture of 1% lidocaine with epinephrine and ?% Marcaine plain was used to an esthetize the planned incision site in the left upper quadrant. A #11 scalpel was used to make a 5 mm left upper quadrant transverse incision through which a veress needle was placed. Three pops were heard going through the fascia. A saline drop test was used to confirm that the veress needle was intraabdominal. An optiview technique was then used to place a 5mm port in the left upper quadrant. A 5 mm 30 degree laproscope was then placed through this port and the abdominal cavity was surveyed and was normal. The patient was placed in reverse Trendelenburg positioning. A karrie liver retractor was then placed in the subxyphoid position and it was used to hold up the left lobe of the liver to the abdominal wall. This was secured to the bed using the liver retractor ocasio. A TAMAR block was then performed for pain control on the right side of the abdomen. A 5 mm port was placed in the right upper quadrant near the falciform ligament. A 12 mm port was then placed in the mid epigastrium. One additional 5 mm port was placed in the left upper quadrant just to the left of the placement of the first port. I then performed a TAMAR block on the left side of the abdomen. I then removed the epigastric fat pad; there was no evidence of hiatal hernia. I then opened up the angle of His. We then gained entry into the lesser sac about 4-5 cm from the pylorus. I had anesthesia place a 34 [place] orogastric tube into the distal antrum to use as a sizing tool for gastric pouch size. I divided the short gastric vessels up to the angle of His. We then started the creation of the gastric pouch by firing a 60 mm purple load endostapler up the stomach about 4-5 cm from the pylorus. We completed the creation of the gastric pouch using a total of 4 firings of a 60 mm purple load stapler. We had anesthesia remove the orogastric tube, then we clamped across the distal antrum using a fired 60 mm endostapler. We flattened the patient and then instilled normal saline surrounding the newly created staple line. I then performed an on-table endoscopy. I passed the gastroscopy into the posterior oropharynx and down the esophagus evaluating the esophageal mucosa which was normal. There was no evidence of hiatal hernia. I passed the gastroscope into the gastric pouch and insufflated the gastric pouch. There was healthy pink mucosa and no evidence of active bleeding. There was no evidence of leak on laparoscopy. I desufflated the gastric pouch and removed the endoscope. I removed the endostapler from the abdomen and suctioned the fluid from the left upper quadrant. I then removed the partial gastrectomy specimen through the epigastric 12 mm port site. I reapproximated the 12 mm port using a 0 maxon suture with a laparoscopic suture passer. I instilled local anesthetic into the fascial closure site and tied the suture down at a pressure of 8-10 mm of Hg. There was no residual fascial defect. We removed the liver retractor and the left upper quadrant 5 mm ports under direct visualization. There was no evidence of any active bleeding. I desufflated the abdomen through the last remaining port and removed the laparoscope an d 5 mm port. We reapproximated all incisions with a 4-0 monocryl subcuticular stitch. We cleaned and dried the abdominal skin and applied dermabond skin glue. All count were correct at the end of the case. The patient was awake and in stable condition prior to extubation and transfer to the recovery room.
[2020-07-16] MEDS: Famotidine/PF 20 MG/2 ML VIAL IVPUSH ×2 (16:13→20:22)
[2020-07-16] MEDS: HYDROmorphone HCl 0.5 MG/0.5 ML SYRINGE 0.25 MG IVPUSH ×2 (17:30→21:30)
[2020-07-16] MEDS: ondansetron HCL 4 MG/2 ML VIAL IVPUSH (17:31)
[2020-07-16] MEDS: Lactated Ringers 1,000 ML 125 ML IVCONT (20:26)
--- NOTE | 2020-07-16 20:45 | PM.PNGS ---
Subjective Subjective Date of Service: 07/17/20 Interval history: POD #1: Patient is doing well. Has been ambulating, using the incentive spirometer, and tolerating po liquids. No nausea or abdominal pain. Has some mild incisional pain. Physical Exam Vital Signs: Vital Signs: Last Vital Signs Temp 98.2 F 07/16/20 19:56 Pulse 74 07/16/20 19:56 Resp 20 07/16/20 19:56 BP 165/80 H 07/16/20 19:56 Pulse Ox 95 07/16/20 19:56 Body Mass Index 40.7 Const: General: cooperative, comfortable, no acute distress, alert and awake Nutritional Appearance: obese GI: Inspection: Yes normal to inspection, Yes incision (normal, slight erythema at site of surgical glue, no tenderness/warmth/drai) and Yes obesity Extrem: Right lower extremity: lower leg Details: no tenderness; no edema Left lower extremity: lower leg Details: no tenderness; no edema Progress Note: A&P Assessment and plan (1) Morbid obesity due to excess calories: Status: Acute (2) Intestinal malabsorption following gastrectomy: Status: Acute (3) S/P laparoscopic sleeve gastrectomy: Status: Acute Assessment and Plan: POD #1: Patient is doing well and will be discharged home today. All the discharge instructions were reviewed with the patient and given in writing. Patient will follow up as scheduled in 2 weeks. Fall Risk Details Current Medications: Current Medications Generic Name Dose Route Start Last Admin Trade Name Freq PRN Reason Stop Dose Admin Famotidine 20 mg 07/16/20 21:00 07/16/20 20:22 Famotidine/Pf 20 Mg/2 Ml Vial IVPUSH 20 mg BID RUDDY Administration Hydromorphone HCl 0.25 mg 07/16/20 16:53 07/16/20 17:30 Hydromorphone Hcl 0.5 Mg/0.5 Ml Syringe IVPUSH 0.25 mg Q4H PRN Administration Pain, Severe (Pain Scale 7-10) Lactated Ringer's 1,000 mls @ 125 mls/hr 07/16/20 16:53 07/16/20 20:26 Lr IVCONT 125 mls/hr .Q8H RUDDY Administration Cefotetan Disodium 2 gm/ 50 mls @ 100 mls/hr 07/17/20 02:00 Sodium Chloride IV 07/17/20 02:29 POSTOP ONE Acetaminophen 1,000 mg in 100 mls @ 16.7 mls/hr 07/16/20 20:40 07/16/20 20:20 Ofirmev IV 16.7 mls/hr .Q6H RUDDY Administration Metoclopramide HCl 10 mg 07/16/20 16:53 Metoclopramide Hcl 10 Mg/2 Ml Vial IVPUSH Q6H PRN Nausea Ondansetron HCl 4 mg 07/16/20 16:53 07/16/20 17:31 Ondansetron Hcl 4 Mg/2 Ml Vial IVPUSH 4 mg Q8H RUDDY Administration Sodium Chloride 3 ml 07/16/20 16:53 07/16/20 20:26 0.9 % Sodium Chloride Flush 3 Ml Syringe IVFLUSH Not Given QSHIFT RUDDY Time Spent With Patient Time: Total time spent is greater than 50% in coordination of care (as documented) at patient's floor/unit and/or counseling patient: Time with patient: 25 - 35 minutes Procedures Date of Service Date of Service: 07/17/20
[2020-07-16] MEDS: amLODIPine Besylate 5 MG TABLET PO (21:32)
[2020-07-16] MEDS: carvediloL 12.5 MG TABLET PO (21:32)
[2020-07-17] VITALS: BP 142/85; PULSE 68; RESP 16; TEMP 37.4; O2SAT 99
[2020-07-17] MEDS: HYDROmorphone HCl 0.5 MG/0.5 ML SYRINGE 0.25 MG IVPUSH (01:29)
[2020-07-17] MEDS: cefoTEtan disodium 2 GM in 0.9 % Sodium Chloride 50 ML IV (01:29)
[2020-07-17] MEDS: ondansetron HCL 4 MG/2 ML VIAL IVPUSH ×2 (01:33→08:40)
[2020-07-17 04:00] VITALS: BP 127/72; PULSE 67; RESP 16; TEMP 36.9; O2SAT 97
[2020-07-17 06:18] LABS: MANUAL DIFF FLAG NO
[2020-07-17 06:23] LABS: Basophils Percent Auto 0.1 % (0-2); Hematocrit 41.3 % (42-52); Hemoglobin 13.7 g/dl (14.0-18.0); Imm Gran Abs Auto 0.04 X10*3/uL (0.00-0.03); Imm Gran Pct Auto 0.4 % (0.0-0.4); Lymphocytes Absolute Auto 1.2 X10*3/uL (1.2-4.9); Lymphocytes Percent Auto 12.7 % (20-40); Mean Corpuscular HGB Conc 33.2 g/dl (31.0-36.0); Mean Corpuscular Volume 84.3 fL (80-98); Mean Platelet Volume 12.3 fL (9.4-12.4); Monocytes Absolute Auto 0.4 X10*3/uL (0.1-1.2); Monocytes Percent Auto 4.3 % (2-11); Neutrophils Absolute Auto 7.9 X10*3/uL (2.0-8.3); Neutrophils Percent Auto 82.5 % (45-73); Platelet Count 235 X10*3/uL (160-400); Red Cell Distribution Width 14.7 % (11.0-16.0); White Blood Count 9.6 X10*3/uL (4.8-10.8)
[2020-07-17 07:14] LABS: Anion Gap 16 (12-20); Blood Urea Nitrogen 11 mg/dL (9-16); Carbon Dioxide 27 mmol/L (22-29); Chloride 103 mmol/L (96-108); Creatinine Clr Calc Pharmacy 128.4; Estimated Glomerular Filt Rate > 60; Glucose Random 90 mg/dL (60-115); Potassium 3.7 mmol/L (3.3-5.1); Sodium 142 mmol/L (135-145)
[2020-07-17 07:35] LABS: Calcium 8.5 mg/dL (8.4-10.2)
[2020-07-17 07:59] VITALS: BP 144/81; PULSE 63; RESP 16; TEMP 36.3; O2SAT 96
[2020-07-17] MEDS: Famotidine/PF 20 MG/2 ML VIAL IVPUSH (08:40)
[2020-07-17] MEDS: Lactated Ringers 1,000 ML 125 ML IVCONT (08:41)
[2020-07-17] MEDS: amLODIPine Besylate 5 MG TABLET PO (08:41)
[2020-07-17] MEDS: 0.9 % Sodium Chloride Flush 3 ML SYRINGE IVFLUSH (08:41)
--- NOTE | 2020-07-17 09:07 | MHC.CM.PN ---
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 PT VERIFIES PCP AND PHARMACY, PT OFFERED ASSISTANCE TO COMPLETE HCP AND PT REPORTS HE WOULD LIKE TO COMPLETE HCP PRIOR TO D/C. S/C PLAN HOME SELF-CARE, SPOUSE FOR TRANSPORT PCP: ELOISA SHORT
--- NOTE | 2020-07-17 09:21 | PM.DS ---
DS: Providers Provider Date of Service: 07/17/20 Date of admission: 07/16/20 10:42 Primary care physician: Lorna Kline MD DS: Diagnosis Discharge Diagnosis (1) Morbid obesity due to excess calories: Status: Acute (2) Intestinal malabsorption following gastrectomy: Status: Acute (3) S/P laparoscopic sleeve gastrectomy: Status: Acute DS: Medications Discharge Medications Home Medications: Home Medications Medication Instructions Recorded Confirmed amlodipine 5 mg tablet 5 mg PO BID 05/15/20 07/11/20 carvedilol 12.5 mg tablet 12.5 mg PO BID 05/15/20 07/11/20 hydralazine 50 mg tablet 50 mg PO TID 05/15/20 07/11/20 trazodone 100 mg tablet 100 mg PO BEDTIME PRN 05/15/20 07/11/20 zolpidem 12.5 mg tablet,extended 12.5 mg PO BEDTIME PRN 05/15/20 07/11/20 release,multiphase Previous Rx's Medication Instructions Recorded cyclobenzaprine 10 mg PO TID PRN #10 tab 04/30/20 minoxidil 5 mg PO BID #30 tab 04/30/20 thiamine HCl (vitamin B1) 100 mg 100 mg PO DAILY #30 tab 05/22/20 tablet vitamin A palmitate 10,000 unit 20,000 unit PO DAILY 30 Days #60 05/22/20 tablet tab cholecalciferol (vitamin D3) 1,250 1,250 mcg PO QWEEK #4 cap 06/02/20 mcg (50,000 unit) capsule acetaminophen 500 mg tablet 1,000 mg PO Q6H PRN #30 tab 07/11/20 docusate sodium 100 mg capsule 100 mg PO BID #30 cap 07/11/20 famotidine 20 mg tablet 20 mg PO DAILY #30 tab 07/11/20 ondansetron HCl 4 mg tablet 4 mg PO Q6H PRN #30 tab 07/11/20 simethicone 80 mg chewable tablet 80 mg PO TID-QID PRN #30 tab 07/11/20 potassium chloride 40 mEq/15 mL 40 meq PO BID 3 Days #90 ml 07/14/20 oral liquid DS: Summary Time Spent with Patient Time attestation: Total time spent providing and/or coordinating discharge services: Discharge coordination time: Greater than 30 minutes Quality: Stroke Does the patient have a stroke diagnosis?: No Physical Exam Vital Signs: Vital Signs: Last Vital Signs Temp 97.3 F 07/17/20 07:59 Pulse 63 07/17/20 07:59 Resp 16 07/17/20 07:59 BP 144/81 H 07/17/20 07:59 Pulse Ox 96 07/17/20 07:59 Body Mass Index 40.7 DS: Data Data Completed and Pending Pending studies at discharge: Pending at discharge 07/16/20 15:19 Surgical [PTH] Routine Labs on day of discharge: Laboratory Results - last 24 hr 07/16/20 07/16/20 07/16/20 10:50 11:07 11:07 WBC RBC Hgb Hct MCV MCH MCHC RDW Plt Count MPV Immature Gran % (Auto) Neut % (Auto) Lymph % (Auto) [place] % (Auto) Eos % (Auto) Baso % (Auto) Lymph # (Auto) [place] # (Auto) Eos # (Auto) Baso # (Auto) Abs Immat Gran (auto) Absolute Neuts (auto) Absolute Nucleated RBC Nucleated RBC % (auto) Sodium 143 Potassium 3.4 Cancelled Chloride 101 Carbon Dioxide 33 H Anion Gap 12 BUN Creatinine Estim Creat Clear Calc Estimated GFR Random Glucose Calcium COVID-19 (MIRIAM) Negative COVID-19 Clin Com See Note 07/17/20 07/17/20 05:39 05:39 WBC 9.6 RBC 4.90 Hgb 13.7 L Hct 41.3 L MCV 84.3 MCH 28.0 MCHC 33.2 RDW 14.7 Plt Count 235 MPV 12.3 Immature Gran % (Auto) 0.4 Neut % (Auto) 82.5 H Lymph % (Auto) 12.7 L [place] % (Auto) 4.3 Eos % (Auto) 0.0 Baso % (Auto) 0.1 Lymph # (Auto) 1.2 [place] # (Auto) 0.4 Eos # (Auto) 0.0 Baso # (Auto) 0.0 Abs Immat Gran (auto) 0.04 H Absolute Neuts (auto) 7.9 Absolute Nucleated RBC 0.000 Nucleated RBC % (auto) 0.0 Sodium 142 Potassium 3.7 Chloride 103 Carbon Dioxide 27 Anion Gap 16 BUN 11 Creatinine 1.06 Estim Creat Clear Calc 128.4 Estimated GFR > 60 Random Glucose 90 Calcium 8.5 D COVID-19 ([facility]IRIAM) COVID-19 Clin Com Discharge Plan Discharge Patient Disposition: Home, Self-Care Discharge Diagnosis: obesity s/p LSG Referrals: Lorna Kline MD [Primary Care Provider] - 1 Week Discharge Medications: Continued thiamine HCl (vitamin B1) 100 mg tablet 100 mg PO DAILY Qty: 30 RF: 0 vitamin A palmitate 10,000 unit tablet 20,000 unit PO DAILY 30 Days Qty: 60 RF: 1 cyclobenzaprine 10 mg tablet 10 mg PO TID PRN (Reason: muscle spasm) Qty: 10 RF: 0 minoxidil 2.5 mg tablet 5 mg PO BID Qty: 30 RF: 0 amlodipine 5 mg tablet 5 mg PO BID RF: 0 hydralazine 50 mg tablet 50 mg PO TID RF: 0 carvedilol 12.5 mg tablet 12.5 mg PO BID RF: 0 trazodone 100 mg tablet 100 mg PO BEDTIME PRN (Reason: Sleep) RF: 0 zolpidem 12.5 mg tablet,ext release multiphase 12.5 mg PO BEDTIME PRN (Reason: Sleep) RF: 0 cholecalciferol (vitamin D3) 1,250 mcg (50,000 unit) capsule 1,250 mcg PO QWEEK Qty: 4 RF: 3 acetaminophen [Tylenol Extra Strength] 500 mg tablet 1,000 mg PO Q6H PRN (Reason: pain) Qty: 30 RF: 1 famotidine [Pepcid AC] 20 mg tablet 20 mg PO DAILY Qty: 30 RF: 1 simethicone [Gas Relief (simethicone)] 80 mg tablet,chewable 80 mg PO TID-QID PRN (Reason: abdominal distention) Qty: 30 RF: 1 ondansetron HCl [Zofran] 4 mg tablet 4 mg PO Q6H PRN (Reason: nausea and vomiting) Qty: 30 RF: 1 docusate sodium [Colace] 100 mg capsule 100 mg PO BID Qty: 30 RF: 1 potassium chloride 40 mEq/15 mL liquid 40 meq PO BID 3 Days Qty: 90 RF: 0 Discontinued acetaminophen [Tylenol] 325 mg tablet 650 mg PO Q6H PRN (Reason: pain) Qty: 30 RF: 0 metformin 1,000 mg tablet 1,000 mg PO DAILY RF: 0 Discharge Orders: Discharge Order (Routine); Ordered 07/17/20 Ordered By: Mirna Leal Diet: other Activity on Discharge: No heavy lifting Stand Alone Forms: Patient Portal Discharge page Activity Restrictions/Additional Instructions: Discharge Instructions 1. Please call your doctor or come back to the emergency room should any new symptoms arise. 2. You will receive a courtesy call from [facility] 24-48 hours after discharge. 3. Activity: abstain from alcohol, practice limited stair climbing, no bending, no driving, no exercise, no illicit substances, no lifting, no sex, no tub bath, no work. 4. Diet: continue stage 3 protein shakes until your [address] Serrano. 5. Dressing Change/Wound Care: Your incision is covered by surgical glue. If the area is tender, you may apply an ice pack for short intervals (no more than 20 minutes on, followed by at least 20 minutes off). Do not apply heat. Do not use creams, lotions, or topical antibiotics unless instructed to do so by your surgeon. These can cause infection or allergic reaction. 6. Call your doctor if: - Your temperature exceeds 101.5 F - You experience excessive pain or swelling - You have an unexpected reaction to medication - You have excessive bleeding - You experience continued vomiting/nausea - Your incision begins to separate - Your incision shows signs of infection such as increased redness, swelling, excessive pain, heat, or drainage (light blood or clear fluid is normal) 7. General instructions: - No lifting greater than 5 lbs for the next 4 weeks. - No driving within 24 hours of taking narcotic pain medications. - If you do not move your bowels in the next 2 days, please take milk of magnesia over the counter. Please follow the post op diet and do not advance your diet until you are seen in the office in about 2 weeks. - Please walk around your home every hour or two to prevent blood clots from forming in your legs. You do not need to wake from sleeping to walk. - Please sleep in a bed or couch to prevent kinking at the hips and knees. - Please take your incentive spirometer (your lung public message service supervisor) home with you and use it for the next few days to prevent pneumonias. - You may shower, no hot tubs, baths or swimming pools. - Please call the office with any questions or concerns such as increasing abdominal pain, fever, chills, shortness of breath, chest pain, leg pain or swelling, or redness or drainage from your incisions. - Please stay on stage 3 diet which includes sugar free clear liquids such as ice pops and jello and broth and crystal light. Avoid all carbonation. Please drink 3 protein shakes with at least 25-30 grams of protein daily or 3 of the Celebrate 4:1 shakes which can be purchased in our office. The Celebrate shakes have all of the bariatric vitamins you need if you consume these shakes. If you are drinking other protein shakes, you will need to purchase the Celebrate multivitamins and calcium that we provide in the office (they will provide all the vitamins you need). Please make sure you are consuming at least 40-60 ounces of water in addition to your 3 protein shakes daily. 8. Do not hesitate to contact the office with any questions at . Discharge Summary Date of Service: 07/17/20 Pre-op diagnosis: Morbid obesity, BMI of 41.1, hypertension, and diabetes mellitus type 2 Post-op diagnosis: same Procedure: Laparoscopic sleeve gastrectomy, intraoperative endoscopy, and Bob block Discharge Medications: 1. Simethicone 80mg tablet chewable (Si tablet every 6 hours orally for 7 days, #28, 1 RF) q4h prn gas 2. Acetaminophen 500 mg tablet (Si tablets as needed every 6 hours orally for 30 days, #240, 0 RF) 3. Ondansetron 4 mg tablet disintegrating (Si tablet every 6 hours orally for 7 days, #28, 1 RF) 4. Colace 100 mg capsule (Si capsule twice a day for 30 days, #60, 2 RF) 5. Pepcid 20 mg chewable tablet (Si tablet twice a day for 30 days, #60, 3 RF) Discharge Instructions: The patient should continue on the stage III bariatric diet, which includes 3 protein shakes of at least 20-30g of protein on a daily basis. The patient was encouraged to avoid drinking liquids with her protein shakes. They should wait 30-45 minutes in between her meals and drinking water. She should drink at least 40-60 ounces of water on a daily basis. They should ambulate while at home to avoid any blood clots in her lower extremities. They should call with any questions or concerns such as increase in abdominal pain, persistent nausea, vomiting, redness and drainage from her incisions, fever, chills, shortness of breast, or chest pain beyond what is normal for her. The patient should avoid all heavy lifting greater than 5 pounds for the next 4 weeks. The patient is already scheduled to follow up with me in 2 weeks time, but should call the office with any questions prior to that follow up appointment. The patient should not advance their diet until they are seen in the office for the 2 week appointment. Hospital Course: The patient was admitted after undergoing LSG. They were started on stage II (1 oz of fluid every 15 minutes) on POD #0. The next morning they were evaluated and started on stage III diet (protein shakes). All labs were within normal limits. On post-operative day #1 she was feeling better, nausea and epigastric pain improved and they were tolerating stage III bariatric diet well. The patient was discharged home. Discharge Disposition: Home. Care Plan Goals: weight loss Health Concerns: obesity Plan of Treatment: s/p LSG Assessment: 1 day s/p LSG discharged home
--- NOTE | 2020-07-17 12:54 | HO.POSTANES ---
Post Anesthesia Evaluation Post Anesthesia Evaluation Vital Signs: Vital Signs Temp Pulse Resp BP Pulse Ox 07/17/20 07:59 97.3 F 63 16 144/81 H 96 07/17/20 04:00 98.4 F 67 16 127/72 97 Anesthesia: General Endotracheal-GETA Mental Status: Awake Pain Control: Satisfactory Nausea/Vomiting: None Hydration: Adequate Anesthesia-Related Issues: No Anes. Related Issues
== END 2020-07-17 11:02 | disposition home or self-care (01) | DRG 403 ==
LOC: HO.SSSA 10:50 → HO.S3 11:24
PROVIDERS: Nurse Practitioner; Physician Assistant; Admitting Provider Surgery; PCP Internal Medicine; Visit Provider Surgery
PROC: 0DB64Z3 Excision of Stomach, Percutaneous Endoscopic Approach, Vertical (ICD-10-PCS; CPT 43845; principal; 2020-07-16 13:00)
DX: E66.01 Morbid (severe) obesity due to excess calories (principal); K91.2 Postsurgical malabsorption, not elsewhere classified; I10 Essential (primary) hypertension; Z20.822 Contact with and (suspected) exposure to COVID-19; Z68.41 Body mass index [BMI] 40.0-44.9, adult; Z79.899 Other long term (current) drug therapy
CPT/HCPCS: 36415; 80048; 80051; 81001; 82040; 85025; 85610; 85730; 86850; 86900; 86901; 87635; 88307; 88342; 93005; C1776; J0131; J1100; J1170; J2250; J2405; J3010

== ENCOUNTER → 2020-07-28 08:39 | Outpatient (BNVA) | payer MEDICAID, SELFPAY | PROVIDERS: PCP Internal Medicine; Visit Provider Surgery | DX: Z98.84 Bariatric surgery status (principal) | CPT/HCPCS: 99212 ==

== ENCOUNTER 2020-08-05 20:11 | Emergency (ER) | payer MEDICAID, SELFPAY ==
[2020-08-05 20:59] VITALS: BP 159/99; PULSE 84; RESP 18; TEMP 37; O2SAT 95; BMI 34.4
--- NOTE | 2020-08-06 00:47 | ED_ITS ---
HPI - Skin/Abscess/Foreign Bdy General Chief complaint: Skin/Abscess/Foreign Body Stated complaint: INGROWN Source: patient Mode of arrival: ambulatory Limitations: no limitations History of Present Illness HPI narrative: 34-year-old male presents with ingrown toenail. Tetanus up to date: yes Location: L foot Severity: moderate Severity scale (1-10): 6 Quality: aching Relieving factors: none Exacerbating factors: palpation and movement Context: none Associated symptoms: denies other symptoms Related Data Home Medications Medication Instructions Recorded Confirmed amlodipine 5 mg tablet 5 mg PO BID 05/15/20 07/28/20 carvedilol 12.5 mg tablet 12.5 mg PO BID 05/15/20 07/28/20 hydralazine 50 mg tablet 50 mg PO TID 05/15/20 07/28/20 trazodone 100 mg tablet 100 mg PO BEDTIME PRN 05/15/20 07/28/20 zolpidem 12.5 mg tablet,extended 12.5 mg PO BEDTIME PRN 05/15/20 07/28/20 release,multiphase calcium citrate 1,000 mg tablet 1,000 mg PO DAILY 07/28/20 07/28/20 dtrahzwk-[id number] 45 mg-folic 1 cap PO DAILY cap 07/28/20 07/28/20 acid 800 mcg-vit K 120 mcg capsule Previous Rx's Medication Instructions Recorded minoxidil 5 mg PO BID #30 tab 04/30/20 acetaminophen 500 mg tablet 1,000 mg PO Q6H PRN #30 tab 07/11/20 amoxicillin-pot clavulanate 1 tab PO Q12H 10 Days #20 tab 08/06/20 [Augmentin] Allergies Allergy/AdvReac Type Severity Reaction Status Date / Time No Known Allergies Allergy Verified 08/05/20 20:59 [No Known Allergies*] Review of Systems Review of Systems: Constitutional: No Fever, No Chills ENT/Mouth: No Ear Pain, No Hoarseness, No sore throat Eyes: No Eye Pain, No Swelling, No Redness, No Foreign Body Cardiovascular: No Chest Pain, No SOB Respiratory: No Cough, No Dyspnea Gastrointestinal: No Nausea, No Vomiting, No Diarrhea, No abdominal Pain Genitourinary: No Dysuria, No Hematuria Musculoskeletal: positive Left great toe pain, No Myalgias, No Joint Swelling Skin: No Skin lacerations, No rash Neuro: No Weakness, No Numbness, No Paresthesias, No Loss of Consciousness, No Dizziness, No Headache Psych: No Anxiety/Panic, No Depression Heme/Lymph: no easy bruising, no Lymphadenopathy Endocrine: No Polyuria, No Polydipsia Yes all other systems are reviewed and are negative [facility] Past Medical History Attestation statement: The following information was validated with the patient. Source: old records reviewed Medical History Anxiety Arthritis Back pain BMI 39.0-39.9,adult BMI 45.0-49.9, adult COVID-19 vaccine series completed Depression HTN (hypertension) Intestinal malabsorption following gastrectomy Low serum potassium Obesity Pre-diabetes Preoperative examination Shortness of breath Sleep apnea Vitamin A deficiency Vitamin B1 deficiency Vitamin D deficiency Surgical History Hx of oral surgery No pertinent past surgical history S/P laparoscopic sleeve gastrectomy Family History Family History Father Hypertension Diabetes mellitus Mother Hypertension Brother Hypertension Depressed Mental problems Son No problems noted. Social History Social History Household Members: Significant Other Housing: Apartment Are you a primary care aid to a significant other at home: No Do you presently have visiting nurse or other home services: No Alcohol intake: never Patient Tobacco Use Status: Never used Tobacco Advance Directives: No Advance Directives Information Provided: No service: No Current occupational status: unemployed Physical Exam Vital Signs: Vital Signs: Last Vital Signs Temp 98.6 F 08/05/20 20:59 Pulse 84 08/05/20 20:59 Resp 18 08/05/20 20:59 BP 159/99 H 08/05/20 20:59 Pulse Ox 95 08/05/20 20:59 Body Mass Index 34.4 Appearance: Alert. Oriented X3. No acute distress. Eyes: Pupils equal, round and reactive to light. ENT: Pharynx normal. Neck: Normal inspection. Neck supple. CVS: Normal heart rate and rhythm. Pulses normal. Respiratory: No respiratory distress. Breath sounds normal. Abdomen: Soft and nontender. Skin: Skin warm and dry. Normal skin color. Normal skin turgor. Extremities: positive ingrown toenail to the right great toe Neuro: No motor deficit. No sensory deficit. Course Course Course Narrative: patient presents with ingrown toenail to the right great toe. Plans to digitally block and to remove the toenail. Patient verbalized understanding of and agrees to plan. Patient tolerated procedure well. Prepped and draped in sterile fashion. Patient will follow-up with podiatry and Or primary care physician, will give Augmentin. Procedures Nerve Block Nerve Block 1: Local Anesthetic: lidocaine 2% Amount of anesthesia used (mL): 6 Side: right Nerve Blocks: digital Procedure Successful: Yes Patient Tolerated Procedure: well and no complications Complications: none MDM - Skin/Abscess/Foreign Bdy MDM Narrative Medical decision making narrative: ingrown toenail Medical Records Attestation: I reviewed the patient's medical records. Lab Data Attestation: I reviewed the patient's lab results. Discharge Plan Discharge Clinical Impression: Ingrowing toenail of right foot Patient Disposition: Home, Self-Care Instructions: Ingrown Nail (ED) Additional Instructions: Fue evaluado por u?a encarnada. [place] Augmentin seg?n las indicaciones. Mantenga el ap?sito shelly 3 d?as. Seguimiento con Podolog?a. Gab por elegir addy departamento de emergencias para lizama evaluaci?n. Wisam un seguimiento con lizama m?dico de atenci?n primaria seg?n sea necesario. Regrese al departamento de emergencias por cualquier s?ntoma nuevo, preocupante o que empeore. You were evaluated for ingrown toenail. Please take Augmentin as directed. Keep the dressing on for 3 days. Follow-up with Podiatry. Thank you for choosing this emergency department for evaluation. Please follow-up with primary care physician as needed. Return to the emergency department for any new, concerning, or worsening symptoms. Prescriptions: New amoxicillin-pot clavulanate [Augmentin] 875-125 mg tablet 1 tab PO Q12H 10 Days Qty: 20 RF: 0 No Action minoxidil 2.5 mg tablet 5 mg PO BID Qty: 30 RF: 0 amlodipine 5 mg tablet 5 mg PO BID RF: 0 hydralazine 50 mg tablet 50 mg PO TID RF: 0 carvedilol 12.5 mg tablet 12.5 mg PO BID RF: 0 trazodone 100 mg tablet 100 mg PO BEDTIME PRN (Reason: Sleep) RF: 0 zolpidem 12.5 mg tablet,ext release multiphase 12.5 mg PO BEDTIME PRN (Reason: Sleep) RF: 0 acetaminophen [Tylenol Extra Strength] 500 mg tablet 1,000 mg PO Q6H PRN (Reason: pain) Qty: 30 RF: 1 Bariatric Multivitamins 45 mg iron- 800 mcg-120 mcg capsule 1 cap PO DAILY RF: 0 calcium citrate 1,000 mg tablet 1,000 mg PO DAILY RF: 0 Referrals: Serge Kruger [Physician] - 2 days ( ingrown toenail removed)
[2020-08-06] MEDS: Ketorolac Tromethamine 60 MG/2 ML VIAL IM (02:26)
[2020-08-06] MEDS: Amoxicillin/Potassium Clav 875 MG TABLET PO (02:28)
[2020-08-06] MEDS: Lidocaine HCl 2 % MPF 5 ML VIAL 10 ML SUBCUT (02:28)
[2020-08-06 02:30] VITALS: BP 132/80; PULSE 74; RESP 18; O2SAT 99
== END 2020-08-06 02:41 | disposition home or self-care (01) ==
PROVIDERS: Emergency Provider Internal Medicine
DX: L60.0 Ingrowing nail (principal)
CPT/HCPCS: 11750; 96372; 99284; J1885

== ENCOUNTER 2020-08-20 13:46 | Emergency (ER) | payer MEDICAID, SELFPAY ==
--- NOTE | ~2020-08-20 | XR_ITS ---
EXAMINATION: XR TOES, LEFT CLINICAL INFORMATION: Pain COMPARISON: Left foot x-ray August 2019 TECHNIQUE: 3 views of the left great toe were obtained. FINDINGS: No fracture or dislocation is seen. There is osteopenia and cystic change seen lateral aspect of the proximal phalanx of the great toe at the IP joint. Findings are questionable for inflammatory or septic arthritis. There is irregularity of the lateral aspect of the distal tuft of the great toe. This is similar to 2019 exam. No fracture or dislocation is seen. There is diffuse soft tissue swelling. XR/XR toe LT min 2V IMPRESSION: Osteopenia and cystic change of the lateral aspect of the proximal phalanx at the IP joint questionable for infectious or inflammatory arthritis.
[2020-08-20 14:06] VITALS: BP 147/94; PULSE 72; RESP 16; TEMP 36.7; O2SAT 97; BMI 33.1
[2020-08-20 15:04] VITALS: BP 136/89; PULSE 67; RESP 20; TEMP 36.8; O2SAT 98
--- NOTE | 2020-08-20 15:33 | ED_ITS ---
HPI - Extremity Injury (Lower) General Chief Complaint: Extremity Injury, Lower Stated Complaint: infection on toe Time Seen by Provider: 08/20/20 14:02 Source: patient Mode of arrival: ambulatory History of Present Illness HPI Narrative: 34-year-old male with a past medical history of anxiety, arthritis, back pain, depression, hypertension, prediabetes, seen and our ED on 08/06 and had ingrown toenail removed, presenting to the ED complaining of continued pain to left great toe. Reports compliance with previously prescribed Augmentin. Denies redness, drainage from area, fever, chills, numbness, tingling. Did not see ac/dc rewinder MD complaint: foot injury Related Data Home Medications Medication Instructions Recorded Confirmed amlodipine 5 mg tablet 5 mg PO BID 05/15/20 07/28/20 carvedilol 12.5 mg tablet 12.5 mg PO BID 05/15/20 07/28/20 hydralazine 50 mg tablet 50 mg PO TID 05/15/20 07/28/20 trazodone 100 mg tablet 100 mg PO BEDTIME PRN 05/15/20 07/28/20 zolpidem 12.5 mg tablet,extended 12.5 mg PO BEDTIME PRN 05/15/20 07/28/20 release,multiphase calcium citrate 1,000 mg tablet 1,000 mg PO DAILY 07/28/20 07/28/20 cmdstzhl-[id number]-[id number] 45 mg-folic 1 cap PO DAILY cap 07/28/20 07/28/20 acid 800 mcg-vit K 120 mcg capsule Previous Rx's Medication Instructions Recorded minoxidil 5 mg PO BID #30 tab 04/30/20 acetaminophen 500 mg tablet 1,000 mg PO Q6H PRN #30 tab 07/11/20 amoxicillin-pot clavulanate 1 tab PO Q12H 10 Days #20 tab 08/06/20 [Augmentin] hydrocodone-acetaminophen 1 tab PO Q8H PRN 3 Days #9 tab 08/20/20 naproxen 500 mg PO BID PRN 10 Days #20 tab 08/20/20 sulfamethoxazole-trimethoprim 1 tab PO Q12H 7 Days #14 tab 08/20/20 [Bactrim DS] Allergies Allergy/AdvReac Type Severity Reaction Status Date / Time No Known Allergies Allergy Verified 08/05/20 20:59 [No Known Allergies*] Review of Systems Review of Systems: Constitutional: No Fever, No Chills Musculoskeletal: + joint pain, No Myalgias, No Joint Swelling Skin: No Skin Lesions, No rash Neuro: No Weakness, No Numbness, No Paresthesias Yes all other systems are reviewed and are negative [facility] Past Medical History Attestation statement: The following information was validated with the patient. Medical History Anxiety Arthritis Back pain BMI 39.0-39.9,adult BMI 45.0-49.9, adult COVID-19 vaccine series completed Depression HTN (hypertension) Intestinal malabsorption following gastrectomy Low serum potassium Obesity Pre-diabetes Preoperative examination Shortness of breath Sleep apnea Vitamin A deficiency Vitamin B1 deficiency Vitamin D deficiency Surgical History Hx of oral surgery No pertinent past surgical history S/P laparoscopic sleeve gastrectomy Family History Family History Father Hypertension Diabetes mellitus Mother Hypertension Brother Hypertension Depressed Mental problems Son No problems noted. Social History Social History Household Members: Significant Other Housing: Apartment Are you a primary career discovery teacher to a significant other at home: No Do you presently have visiting nurse or other home services: No Alcohol intake: never Patient Tobacco Use Status: Never used Tobacco Advance Directives: No Advance Directives Information Provided: No service: No Current occupational status: unemployed Physical Exam Vital Signs: Vital Signs: Last Vital Signs Temp 98.2 F 08/20/20 15:04 Pulse 67 08/20/20 15:04 Resp 20 08/20/20 15:04 BP 136/89 08/20/20 15:04 Pulse Ox 98 08/20/20 15:04 Body Mass Index 33.1 Const: General: cooperative and healthy appearing Orientation/consciousness: patient oriented x3 Limitations: no limitations HENMT: Head: Yes normal to inspection Ears: hearing grossly normal bilaterally General nose exam: Normal external nose present Face and sinus: Yes normal facial exam Eyes: General: appearance normal, both eyes and all related structures EOM: EOMs intact bilaterally Neck: Neck: Yes normal visual inspection Resp: Effort & Inspection: normal respiratory effort Cardio: Rate: regular rate Peripheral pulses: dorsalis pedis present Skin: Rashes: no rashes Wounds: no wounds Neuro: General: patient oriented x3 Gait exam (Neuro): Normal gait present Extrem: Other: left great toe with tenderness to palpation greater lateral aspect. No swelling, no erythema, no fluctuance / induration or expressible drainage. NV intact. Full range of motion intact Course Course Course Narrative: XR toe LT min 2V IMPRESSION: Osteopenia and cystic change of the lateral aspect of the proximal phalanx at the IP joint questionable for infectious or inflammatory arthritis. >> Case discussed with Dr. Oden who also evaluated patient. Low concern for or septic arthritis. No evidence of cellulitis or osteomyelitis. Will initiate Bactrim prophylactically, and gave patient podiatry follow-up. Worrisome signs and symptoms and strict return precautions discussed. MDM - Extremity Injury (Lower) MDM Narrative Medical decision making narrative: 34-year-old male with a past medical history of anxiety, arthritis, back pain, depression, hypertension, prediabetes, seen and our ED on 08/06 and had ingrown toenail removed, presenting to the ED complaining of continued pain to great toe. on exam VSS, NAD/ well-appearing, no evidence of active cellulitis /pus drainage or infection. Will obtain x-rays to rule out osteo /inflammatory arthritis. low concern for septic joint /arthritis plan: X-rays Discharge Plan Discharge Clinical Impression: Inflammatory arthritis Patient Disposition: Home, Self-Care Instructions: Arthritis (ED) Additional Instructions: your x-ray showing possible inflammatory arthritis versus infectious arthritis, most likely inflammatory in response to your recently pulled ingrown toenail. Bactrim as an antibiotic, take as prescribed. Naproxen as anti- inflammatory/pain medication. In addition or question opiate pain medication, take only when pain is severe for the next 3 days. You need to see a ac/dc rewinder. If the area begins to look infected, is red, there is drainage from the area, or you have fevers please return to the ED lizama radiograf?a que muestra marleny posible artritis inflamatoria versus artritis infecciosa, muy probablemente inflamatoria en respuesta a lizama u?a encarnada recientemente arrancada. Bactrim sarah antibi?lori, mary seg?n lo prescrito. Naproxeno sarah medicamento antiinflamatorio / analg?sico. Adem?s o cuestiona los analg?sicos opi?ceos, t?melos solo cuando el dolor sea intenso shelly los pr?ximos 3 d?as. Necesita moni a un pod?logo. Si el ?lavonne comienza a verse infectada, est? enrojecida, hay drenaje del ?lavonne o tiene fiebre, regrese al servicio de urgencias Prescriptions: New sulfamethoxazole-trimethoprim [Bactrim DS] 800-160 mg tablet 1 tab PO Q12H 7 Days Qty: 14 RF: 0 naproxen 500 mg tablet 500 mg PO BID PRN (Reason: pain) 10 Days Qty: 20 RF: 0 hydrocodone-acetaminophen 5-325 mg tablet 1 tab PO Q8H PRN (Reason: pain, severe) 3 Days Qty: 9 RF: 0 No Action minoxidil 2.5 mg tablet 5 mg PO BID Qty: 30 RF: 0 amoxicillin-pot clavulanate [Augmentin] 875-125 mg tablet 1 tab PO Q12H 10 Days Qty: 20 RF: 0 amlodipine 5 mg tablet 5 mg PO BID RF: 0 hydralazine 50 mg tablet 50 mg PO TID RF: 0 carvedilol 12.5 mg tablet 12.5 mg PO BID RF: 0 trazodone 100 mg tablet 100 mg PO BEDTIME PRN (Reason: Sleep) RF: 0 zolpidem 12.5 mg tablet,ext release multiphase 12.5 mg PO BEDTIME PRN (Reason: Sleep) RF: 0 acetaminophen [Tylenol Extra Strength] 500 mg tablet 1,000 mg PO Q6H PRN (Reason: pain) Qty: 30 RF: 1 Bariatric Multivitamins 45 mg iron- 800 mcg-120 mcg capsule 1 cap PO DAILY RF: 0 calcium citrate 1,000 mg tablet 1,000 mg PO DAILY RF: 0 Referrals: [facility] [Primary Care Provider] - 2 days Farhan Patton MD [Physician] - 2 days Interventions: ED Discharge Assessment Last Done: 08/20/20 16:11 Discharge Date/Time: 08/20/20 16:12 Print Language: Estonian
== END 2020-08-20 16:12 | disposition home or self-care (01) ==
PROVIDERS: Emergency Provider Emergency Medicine
DX: M13.872 Other specified arthritis, left ankle and foot (principal); I10 Essential (primary) hypertension; Z79.899 Other long term (current) drug therapy
CPT/HCPCS: 73660; 99283

== ENCOUNTER → 2020-08-28 13:09 | Outpatient (BNVA) | payer MEDICAID, SELFPAY | PROVIDERS: PCP Internal Medicine; Visit Provider Physician Assistant | DX: E66.9 Obesity, unspecified (principal); R73.03 Prediabetes; K90.49 Malabsorption due to intolerance, not elsewhere classified; I10 Essential (primary) hypertension; Z68.32 Body mass index [BMI] 32.0-32.9, adult; Z90.3 Acquired absence of stomach [part of]; Z98.84 Bariatric surgery status; Z79.899 Other long term (current) drug therapy | CPT/HCPCS: 99212 ==

== ENCOUNTER → 2020-09-18 08:17 | Outpatient (BNVA) | payer MEDICAID, SELFPAY | PROVIDERS: PCP Internal Medicine; Visit Provider Dietitian, Registered | DX: E66.9 Obesity, unspecified (principal); Z68.31 Body mass index [BMI] 31.0-31.9, adult | CPT/HCPCS: 97803 ==

== ENCOUNTER 2020-10-01 13:06 | Emergency (ER) | payer MEDICAID, SELFPAY ==
--- NOTE | ~2020-10-01 | XR_ITS ---
EXAMINATION: XR ANKLE, LEFT CLINICAL INFORMATION: Pain COMPARISON: Radiographs left ankle 04/30/2020 TECHNIQUE: AP, lateral, and mortise views of the left ankle. FINDINGS: Findings are similar to prior exam 04/30/2020. There is soft tissue swelling overlying the lateral malleolus and distal to the medial malleolus. There is likely capsular effusion suggested on the lateral view. Bony mineralization is normal. There is no visible acute or healing fracture or dislocation or destructive process. There is likely old healed fracture lateral malleolus. The talar dome shows no osteochondral lesion. The subtalar joint is unremarkable. There is spurring from the distal dorsal talus again seen. The retrocalcaneal recess is preserved. XR/XR ankle LT min 3V IMPRESSION: Soft tissue swelling and probable capsular effusion similar to prior study 04/30/2020. No acute bony abnormality.
--- NOTE | ~2020-10-01 | XR_ITS ---
EXAMINATION: XR KNEE, LEFT CLINICAL INFORMATION: Pain COMPARISON: Radiographs left knee 04/30/2020 TECHNIQUE: Four views of the left knee. FINDINGS: Bony mineralization is normal. There is no acute or healing fracture, dislocation, destructive process. Borderline osteophytes present medial femoral condyle. There is no interval joint narrowing or erosive change or chondrocalcinosis. No definite suprapatellar effusion. Hoffa's fat pad appears normal. XR/XR knee LT 4V IMPRESSION: No acute abnormality from prior study 04/30/2020.
[2020-10-01 13:35] VITALS: BP 134/95; PULSE 50; RESP 16; TEMP 36.9; O2SAT 97; BMI 30.7
== END 2020-10-01 16:00 | disposition left against medical advice (07) ==
PROVIDERS: Emergency Provider Emergency Medicine
DX: L60.0 Ingrowing nail (principal); M25.572 Pain in left ankle and joints of left foot; M25.562 Pain in left knee
CPT/HCPCS: 73564; 73610; 99283

== ENCOUNTER → 2020-11-06 11:08 | Outpatient (BNVA) | payer MEDICAID, SELFPAY | PROVIDERS: PCP Internal Medicine; Visit Provider Surgery | DX: Z98.84 Bariatric surgery status (principal) | CPT/HCPCS: 99212 ==

== ENCOUNTER 2020-11-17 15:04 | Outpatient (REF) | payer MEDICAID, SELFPAY ==
[2020-11-17 16:03] LABS: Basophils Absolute Auto 0.1 X10*3/uL (0.0-0.2); Basophils Percent Auto 0.8 % (0-2); Eosinophils Percent Auto 0.7 % (0-4); Hematocrit 36.5 % (42-52); Hemoglobin 12.1 g/dl (14.0-18.0); Imm Gran Abs Auto 0.01 X10*3/uL (0.00-0.03); Imm Gran Pct Auto 0.2 % (0.0-0.4); Lymphocytes Absolute Auto 2.2 X10*3/uL (1.2-4.9); Lymphocytes Percent Auto 36.3 % (20-40); MANUAL DIFF FLAG NO; Mean Corpuscular HGB Conc 33.2 g/dl (31.0-36.0); Mean Corpuscular Hemoglobin 28.5 pg (27.0-33.0); Mean Corpuscular Volume 86.1 fL (80-98); Monocytes Absolute Auto 0.3 X10*3/uL (0.1-1.2); Monocytes Percent Auto 5.4 % (2-11); Neutrophils Absolute Auto 3.4 X10*3/uL (2.0-8.3); Neutrophils Percent Auto 56.6 % (45-73); Platelet Count 206 X10*3/uL (160-400); Red Blood Count 4.24 X10*6/uL (4.60-5.80); Red Cell Distribution Width 14.3 % (11.0-16.0); White Blood Count 6.1 X10*3/uL (4.8-10.8)
[2020-11-17 16:11] LABS: Appearance Urine CLEAR; Color Urine YELLOW; Glucose Urine UA NEG (NEG); Leukocyte Esterase Urine NEG (NEG); Nitrite Urine NEG (NEG); Specific Gravity - Urine 1.025 (1.005-1.025); Urine Blood NEG (NEG); Urine Ketones 5 MG/DL (NEG); Urine Protein 1+ MG/DL (NEG-TRACE)
[2020-11-17 16:29] LABS: Creatinine Urine 644.64 mg/dL; Microalbum/Creatinine Ratio Ur 6.3 ug/mg cr; Protein/Creatinine Ratio, Ur 0.05 (<0.2); Total Protein Urine Random 33 mg/dL (<12)
[2020-11-17 16:51] LABS: Anion Gap 12 (12-20); Blood Urea Nitrogen 11 mg/dL (9-16); Calcium 9.2 mg/dL (8.4-10.2); Carbon Dioxide 30 mmol/L (22-29); Chloride 102 mmol/L (96-108); Estimated Glomerular Filt Rate > 60; Iron 78 mcg/dL (45-160); Percent Iron Saturation 37 % (15-50); Potassium 3.4 mmol/L (3.3-5.1); Sodium 141 mmol/L (135-145); Total Iron Binding Capacity 211 mcg/dL (228-428); Unsaturated Iron Binding 133 ug/dL
[2020-11-17 17:01] LABS: Bacteria Urine TRACE /LPF; Mucus Urine 1+ /LPF; RBC Urine 0-2 /HPF (0); Squamous Epithelial Cell Urine TRACE /LPF; WBC Urine 0-2 /HPF (0-4)
[2020-11-17 17:33] LABS: Folate 3.3 ng/mL (> or = 4.0); Vitamin B12 251 pg/mL (200-900)
== END 2020-11-17 15:05 | disposition home or self-care (01) ==
LOC: HO.LAB 15:04
PROVIDERS: Visit Provider Internal Medicine Nephrology
DX: I10 Essential (primary) hypertension (principal)
CPT/HCPCS: 36415; 80051; 81001; 81003; 82043; 82310; 82565; 82607; 82746; 83540; 84156; 84520; 85025

== ENCOUNTER → 2020-12-29 09:11 | Outpatient (BNVA) | payer MEDICAID, SELFPAY | PROVIDERS: PCP Internal Medicine; Visit Provider Physician Assistant Surgical | DX: E66.9 Obesity, unspecified (principal); Z98.84 Bariatric surgery status | CPT/HCPCS: 99212 ==

== ENCOUNTER 2021-01-23 09:12 | Outpatient (REF) | payer MEDICAID, SELFPAY ==
[2021-01-23 10:18] LABS: COVID-19 Test Negative (Negative)
== END 2021-01-23 09:13 | disposition home or self-care (01) ==
LOC: HO.LAB 09:12
PROVIDERS: PCP Nurse Practitioner; Visit Provider Internal Medicine
DX: Z20.822 Contact with and (suspected) exposure to COVID-19 (principal)
CPT/HCPCS: 36415; 87635; C9803

== ENCOUNTER 2021-08-02 07:13 | Emergency (ER) | payer MEDICAID, SELFPAY ==
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
[2021-08-02 07:19] VITALS: BP 142/94; PULSE 68; RESP 20; TEMP 37.1; O2SAT 97; BMI 26.2
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
[2021-08-02] MEDS: Ibuprofen 600 MG TABLET PO (08:35)
== END 2021-08-02 09:58 | disposition home or self-care (01) ==
PROVIDERS: Emergency Provider Emergency Medicine
DX: S20.211A Contusion of right front wall of thorax, initial encounter (principal); I10 Essential (primary) hypertension; V49.9XXA Car occupant (driver) (passenger) injured in unspecified traffic accident, initial encounter; Y93.9 Activity, unspecified; Y92.410 Unspecified street and highway as the place of occurrence of the external cause; Y99.9 Unspecified external cause status
CPT/HCPCS: 71101; 99283

== ENCOUNTER 2022-01-07 | Emergency (ER) | payer MEDICAID, SELFPAY ==
[2022-01-07 00:07] VITALS: BP 187/111; PULSE 55; RESP 20; TEMP 36.2; O2SAT 97; BMI 30.8
[2022-01-07 00:21] LABS: Basophils Percent Auto 0.6 % (0-2); Eosinophils Absolute Auto 0.1 X10*3/uL (0.0-0.4); Eosinophils Percent Auto 1.9 % (0-4); Hematocrit 44.5 % (42.0-52.0); Imm Gran Abs Auto 0.01 X10*3/uL (0.00-0.03); Imm Gran Pct Auto 0.1 % (0.0-0.4); Lymphocytes Absolute Auto 2.4 X10*3/uL (1.2-4.9); Lymphocytes Percent Auto 34.8 % (20-40); MANUAL DIFF FLAG NO; Mean Corpuscular HGB Conc 33.7 g/dl (31.0-36.0); Mean Corpuscular Volume 83.2 fL (80.0-98.0); Mean Platelet Volume 11.5 fL (9.4-12.4); Monocytes Absolute Auto 0.4 X10*3/uL (0.1-1.2); Monocytes Percent Auto 5.8 % (2-11); Neutrophils Absolute Auto 3.9 x10*3/uL (2.0-8.3); Neutrophils Percent Auto 56.8 % (45-73); Platelet Count 191 X10*3/uL (160-400); Red Blood Count 5.35 X10*6/uL (4.60-5.80); Red Cell Distribution Width 13.2 % (11.0-16.0); White Blood Count 6.8 X10*3/uL (4.8-10.8)
[2022-01-07 00:48] LABS: Alanine Aminotransferase 13 U/L (0-40); Albumin Level 3.8 g/dL (3.5-5.0); Alkaline Phosphatase 50 U/L (39-117); Anion Gap 10 (12-20); Aspartate Amino Transferase 13 U/L (5-37); Bilirubin Total 0.6 mg/dL (0.0-1.0); Blood Urea Nitrogen 18 mg/dL (9-16); Calcium 9.1 mg/dL (8.4-10.2); Carbon Dioxide 32 mmol/L (22-29); Chloride 107 mmol/L (96-108); Estimated Glomerular Filt Rate > 60; Glucose Random 85 mg/dL (60-115); Potassium 3.6 mmol/L (3.3-5.1); Sodium 145 mmol/L (135-145); Total Protein 6.4 g/dL (6.5-8.0)
[2022-01-07 00:55] LABS: Appearance Urine Clear; Color Urine Yellow; Glucose Urine UA Negative (Negative); Leukocyte Esterase Urine Negative (Negative); Nitrite Urine Negative (Negative); Specific Gravity - Urine 1.025 (1.005-1.025); Urine Blood Negative (Negative); Urine Ketones Negative (Negative); Urine Protein Negative (Neg-Trace)
[2022-01-07 01:02] LABS: Lipase 44 U/L (8-78)
--- NOTE | 2022-01-07 01:29 | ED.GENADULT ---
HPI - General Adult General Chief complaint: Abdominal Pain Stated complaint: Dizziness, n/v Time Seen by Provider: 01/07/22 01:14 Source: patient and family Mode of arrival: ambulatory History of Present Illness HPI narrative: 36-year-old male presents with complaints of dizziness, left-sided abdominal pain and 2 episodes of vomiting in the afternoon and states his last bowel movement was 2 days ago. Otherwise denies any fever chills. Related Data Home Medications Medication Instructions Recorded Confirmed amlodipine 5 mg tablet 5 mg PO BID 05/15/20 12/29/20 carvedilol 12.5 mg tablet 12.5 mg PO BID 05/15/20 12/29/20 hydralazine 50 mg tablet 50 mg PO TID 05/15/20 12/29/20 trazodone 100 mg tablet 100 mg PO BEDTIME PRN Sleep 05/15/20 12/29/20 zolpidem 12.5 mg tablet,extended 12.5 mg PO BEDTIME PRN Sleep 05/15/20 12/29/20 release,multiphase [id number] 45 mg-folic 1 cap PO DAILY 07/28/20 12/29/20 acid 800 mcg-vit K 120 mcg capsule (Bariatric Multivitamins) Previous Rx's Medication Instructions Recorded minoxidil 2.5 mg tablet 5 mg PO BID #30 tabs 04/30/20 acetaminophen 500 mg tablet 1,000 mg PO Q6H PRN pain #30 tabs 07/11/20 (Tylenol Extra Strength) Allergies Allergy/AdvReac Type Severity Reaction Status Date / Time No Known Allergies Allergy Verified 01/07/22 00:10 [No Known Allergies*] Review of Systems Review of Systems: Pertinent positives and negatives as stated in HPI. [facility] Past Medical History Source: nursing notes reviewed Medical History Anxiety Arthritis Back pain BMI 39.0-39.9,adult BMI 45.0-49.9, adult COVID-19 vaccine series completed Depression HTN (hypertension) Intestinal malabsorption following gastrectomy Low serum potassium Obesity Obesity (BMI 30-39.9) Pre-diabetes Preoperative examination Shortness of breath Sleep apnea Vitamin A deficiency Vitamin B1 deficiency Vitamin D deficiency Surgical History Hx of oral surgery No pertinent past surgical history S/P laparoscopic sleeve gastrectomy Family History Family History Father Hypertension Diabetes mellitus Mother Hypertension Brother Hypertension Depressed Mental problems Son No problems noted. Social History Social History Household Members: Significant Other Housing: Apartment Are you a primary home care scheduler to a significant other at home: No Do you presently have visiting nurse or other home services: No Alcohol intake: never Patient Tobacco Use Status: Never used Tobacco Advance Directives Date on File: 07/18/20 service: No Current occupational status: unemployed Physical Exam ED Vital Signs: Vital Signs - 24 hr 01/07/22 00:07 Temperature 97.2 F Pulse Rate 55 Respiratory Rate 20 Blood Pressure 187/111 H Pulse Oximetry 97 Oxygen Delivery Method Room Air BMI result Body Mass Index 30.8 VITAL SIGNS: Reviewed. GENERAL: Well developed, well nourished, in no acute distress. HEAD: Normocephalic/atraumatic EYES: PERRLA, EOMI EARS: Ext canals without abnormality OROPHARYNX: no oral lesions noted, posterior pharynx clear LUNGS: Normal breath sounds. SpO2<97> CARDIOVASCULAR: Regular rate and rhythm without noted murmurs ABDOMEN: Soft, tenderness in left abdomen without rebound, non-distended with bowel sounds. MUSCULOSKELETAL: No tenderness, deformities, or effusions noted on gross inspection. EXTREMITIES: No cyanosis, clubbing or edema. SKIN: Inspection of the skin reveals no rashes NEUROLOGIC: Alert and oriented x 4. Strength and sensation to light touch were grossly intact x 4. Course Course Course Narrative: 36-year-old male with history and clinical presentation after review of all investigations suggestive of possible obstruction or constipation but lower likelihood of infectious etiology. Patient started walk out and I attempted to encourage the patient to stay for complete evaluation that would include imaging studies but he declined stating that he was tired. Medical Decision Making Lab Data Result diagrams: 01/07/22 00:16 01/07/22 00:16 Labs: Lab Results 01/07/22 01/07/22 01/07/22 Range/Units 00:16 00:16 00:48 WBC 6.8 (4.8-10.8) X10*3/uL RBC 5.35 (4.60-5.80) X10*6/uL Hgb 15.0 (14.0-18.0) g/dl Hct 44.5 (42.0-52.0) % MCV 83.2 (80.0-98.0) fL MCH 28.0 (27.0-33.0) pg MCHC 33.7 (31.0-36.0) g/dl RDW 13.2 (11.0-16.0) % Plt Count 191 (160-400) X10*3/uL MPV 11.5 (9.4-12.4) fL Immature Gran % (Auto) 0.1 (0.0-0.4) % Neut % (Auto) 56.8 (45-73) % Lymph % (Auto) 34.8 (20-40) % [place] % (Auto) 5.8 (2-11) % Eos % (Auto) 1.9 (0-4) % Baso % (Auto) 0.6 (0-2) % Lymph # (Auto) 2.4 (1.2-4.9) X10*3/uL [place] # (Auto) 0.4 (0.1-1.2) X10*3/uL Eos # (Auto) 0.1 (0.0-0.4) X10*3/uL Baso # (Auto) 0.0 (0.0-0.2) X10*3/uL Abs Immat Gran (auto) 0.01 (0.00-0.03) X10*3/uL Absolute Neuts (auto) 3.9 (2.0-8.3) x10*3/uL Absolute Nucleated RBC 0.000 (0.0-0.012) X10*3/uL Nucleated RBC % (auto) 0.0 (0.0-0.2) /100WBC Sodium 145 (135-145) mmol/L Potassium 3.6 (3.3-5.1) mmol/L Chloride 107 (96-108) mmol/L Carbon Dioxide 32 H (22-29) mmol/L Anion Gap 10 L (12-20) BUN 18 H (9-16) mg/dL Creatinine 1.22 (0.5-1.4) mg/dL Estim Creat Clear Calc 98.0 Estimated GFR > 60 Random Glucose 85 (60-115) mg/dL Calcium 9.1 (8.4-10.2) mg/dL Total Bilirubin 0.6 (0.0-1.0) mg/dL AST 13 (5-37) U/L ALT 13 (0-40) U/L Alkaline Phosphatase 50 (39-117) U/L Total Protein 6.4 L (6.5-8.0) g/dL Albumin 3.8 (3.5-5.0) g/dL Lipase 44 (8-78) U/L Urine Color Yellow Urine Appearance Clear Urine pH 6.0 (5.0-9.0) Ur Specific [place] 1.025 (1.005-1.025) Urine Protein Negative (Neg-Trace) mg/dL Urine Glucose (UA) Negative (Negative) mg/dL Urine Ketones Negative (Negative) mg/dL Urine Blood Negative (Negative) Urine Nitrite Negative (Negative) Ur Leukocyte Esterase Negative (Negative) Discharge Plan Discharge Clinical Impression: Left sided abdominal pain Patient Disposition: Elopement Prescriptions: No Action minoxidil 2.5 mg tablet 5 mg PO BID Qty: 30 0RF amlodipine 5 mg tablet 5 mg PO BID hydralazine 50 mg tablet 50 mg PO TID carvedilol 12.5 mg tablet 12.5 mg PO BID Rx Instructions: must administer with a meal/food trazodone 100 mg tablet 100 mg PO BEDTIME PRN (Reason: Sleep) zolpidem 12.5 mg tablet,ext release multiphase 12.5 mg PO BEDTIME PRN (Reason: Sleep) acetaminophen [Tylenol Extra Strength] 500 mg tablet 1,000 mg PO Q6H PRN (Reason: pain) Qty: 30 1RF Bariatric Multivitamins 45 mg iron- 800 mcg-120 mcg capsule 1 cap PO DAILY
== END 2022-01-07 02:03 | disposition left against medical advice (07) ==
PROVIDERS: Emergency Provider Student in an Organized Health Care Education/Training Program
DX: R42 Dizziness and giddiness (principal); R10.9 Unspecified abdominal pain; Z79.899 Other long term (current) drug therapy
CPT/HCPCS: 36415; 80053; 81003; 83690; 85025; 99282; 99283

== ENCOUNTER 2023-05-02 10:58 | Outpatient (REF) | payer MEDICAID, SELFPAY ==
[2023-05-02 13:27] LABS: Alanine Aminotransferase 22 U/L (0-40); Alkaline Phosphatase 63 U/L (39-117); Anion Gap 10 (12-20); Aspartate Amino Transferase 18 U/L (5-37); Bilirubin Total 0.8 mg/dL (0.0-1.0); Blood Urea Nitrogen 12 mg/dL (9-16); Calcium 9.1 mg/dL (8.4-10.2); Carbon Dioxide 28 mmol/L (22-29); Chloride 109 mmol/L (96-108); Cholesterol 214 mg/dL (<200); Estimated Glomerular Filt Rate > 60; Glucose Random 84 mg/dL (60-115); HDL Cholesterol 38 mg/dL (>40); LDL Cholesterol Calculated 155 mg/dL (<100); Potassium 3.3 mmol/L (3.3-5.1); Sodium 144 mmol/L (135-145); Total Protein 7.2 g/dL (6.5-8.0); Triglycerides 109 mg/dL (<150)
[2023-05-02 14:18] LABS: Creatinine Urine 201.34 mg/dL; Microalbum/Creatinine Ratio Ur 20.3 ug/mg cr (<30)
== END 2023-05-02 10:59 | disposition home or self-care (01) ==
LOC: HO.HHCL 10:58
PROVIDERS: Visit Provider Registered Nurse
DX: E11.9 Type 2 diabetes mellitus without complications (principal)
CPT/HCPCS: 36415; 80053; 80061; 82043; 82570

== ENCOUNTER → 2023-06-09 08:50 | Outpatient (REF) | payer MEDICAID, SELFPAY | LOC: HO.SL 08:50 | PROVIDERS: PCP Registered Nurse; Visit Provider Registered Nurse | DX: G47.33 Obstructive sleep apnea (adult) (pediatric) (principal) | CPT/HCPCS: 95806 ==

== ENCOUNTER → 2023-06-09 19:00 | Outpatient (BNV) | payer MEDICAID, SELFPAY | PROVIDERS: PCP Registered Nurse; Visit Provider Internal Medicine | DX: R06.83 Snoring (principal) | CPT/HCPCS: 95806 ==

== ENCOUNTER 2024-04-02 14:07 | Emergency (ER) | payer MEDICAID, SELFPAY ==
--- NOTE | ~2024-04-02 | US_ITS ---
EXAMINATION: US SCROTUM CLINICAL INFORMATION: Pain in the right testicle for one month.. COMPARISON: None available. TECHNIQUE: A sonogram of the scrotum was performed assessing rivera-scale appearance and color Doppler flow. Spectral Doppler analysis of the arterial and venous flow were performed in the testes bilaterally. FINDINGS: RIGHT: Right testicle measures 4.4 x 2.4 x 3.2 cm, volume 17.2 mL. No focal testicular parenchymal lesions are visualized. Spectral Doppler analysis of the arterial and venous flow is normal in the right testis. Right epididymal head is normal in size. There is small amount of fluid in the right scrotal sac. Right epididymal Doppler flow is normal. LEFT: Left testicle measures 4.5 x 2.5 x 2.9 cm, volume 17.3 mL. No focal testicular parenchymal lesions are visualized. Spectral Doppler analysis of the arterial and venous flow is normal in the left testis. Left epididymal head is normal in size. There is small amount of free fluid in the scrotal sac. There is prominent pampiniform plexus. Left epididymal Doppler flow is normal. US/US scrotum IMPRESSION: No testicular torsion. Bilateral hydrocele, left greater than the right side. Varicocele, left-sided. Electronically signed by: Zak Potter MD 04/02/2024 03:35 PM [facility]
--- NOTE | ~2024-04-02 | US_ITS ---
EXAMINATION: US SCROTUM CLINICAL INFORMATION: Pain in the right testicle for one month.. COMPARISON: None available. TECHNIQUE: A sonogram of the scrotum was performed assessing rivera-scale appearance and color Doppler flow. Spectral Doppler analysis of the arterial and venous flow were performed in the testes bilaterally. FINDINGS: RIGHT: Right testicle measures 4.4 x 2.4 x 3.2 cm, volume 17.2 mL. No focal testicular parenchymal lesions are visualized. Spectral Doppler analysis of the arterial and venous flow is normal in the right testis. Right epididymal head is normal in size. There is small amount of fluid in the right scrotal sac. Right epididymal Doppler flow is normal. LEFT: Left testicle measures 4.5 x 2.5 x 2.9 cm, volume 17.3 mL. No focal testicular parenchymal lesions are visualized. Spectral Doppler analysis of the arterial and venous flow is normal in the left testis. Left epididymal head is normal in size. There is small amount of free fluid in the scrotal sac. There is prominent pampiniform plexus. Left epididymal Doppler flow is normal. US/US scrotum doppler IMPRESSION: No testicular torsion. Bilateral hydrocele, left greater than the right side. Varicocele, left-sided. Electronically signed by: Zak Potter MD 04/02/2024 03:35 PM [facility]
--- NOTE | ~2024-04-02 | CT_ITS ---
CLINICAL HISTORY: right flank pain CT abdomen and pelvis without contrast Comparison: None Findings: The lung bases are clear. Moderate cardiomegaly. No pericardial effusion. Lung bases are clear. Liver, gallbladder, adrenal glands, left kidney, spleen, and pancreas are within normal limits. Moderate right hydronephrosis and hydroureter with a 2 mm obstructing stone at the ureterovesicular junction. Extensive right perinephric stranding. No bowel obstruction, pneumoperitoneum, or pneumatosis. Pelvic contents unremarkable. Normal appendix. The bones are intact. IMPRESSION: Moderate right hydronephrosis and hydroureter with a 2 mm obstructing stone at the ureterovesicular junction. Extensive right perinephric stranding is concerning for ascending urinary tract infection/pyelonephritis. This document has been electronically signed by: Venus Andino MD on 04/02/2024 22:20:01
[2024-04-02 14:42] VITALS: BP 177/111; PULSE 53; RESP 20; TEMP 36.9; O2SAT 98; BMI 33.8
--- NOTE | 2024-04-02 14:42 | ED.GENADULT ---
HPI - General Adult General Chief complaint: Urogenital-Male Stated complaint: r side back pain Time Seen by Provider: 04/02/24 20:56 History of Present Illness ED Provider: Sarita BLANCO narrative: Patient is a 38-year-old male with a history of a sleeve gastrectomy. He says that he has had bilateral testicle pain for a couple of weeks, possibly more in the right. He has had right flank pain for the last 2 days. No fevers. He says the pain is somewhat worse when he takes a deep breath. No cough. No vomiting. Related Data Home Medications ?Medication ?Instructions ?Recorded ?Confirmed amlodipine 5 mg tablet 5 mg PO BID 05/15/20 12/29/20 carvedilol 12.5 mg tablet 12.5 mg PO BID 05/15/20 12/29/20 hydralazine 50 mg tablet 50 mg PO TID 05/15/20 12/29/20 trazodone 100 mg tablet 100 mg PO BEDTIME PRN Sleep 05/15/20 12/29/20 zolpidem 12.5 mg tablet,extended 12.5 mg PO BEDTIME PRN Sleep 05/15/20 12/29/20 release,multiphase ifwjujtg-fwnteldg-[id number] 45 mg-folic 1 cap PO DAILY 07/28/20 12/29/20 acid 800 mcg-vit K 120 mcg capsule (Bariatric Multivitamins) Previous Rx's ?Medication ?Instructions ?Recorded minoxidil 2.5 mg tablet 5 mg (2 x 2.5 mg) PO BID #30 tabs 04/30/20 acetaminophen 500 mg tablet 1,000 mg (2 x 500 mg) PO Q6H PRN 07/11/20 (Tylenol Extra Strength) pain #30 tabs morphine 15 mg immediate release 15 mg PO Q6H PRN pain #10 tabs 04/02/24 tablet ondansetron 4 mg disintegrating 4 mg PO Q6H PRN nausea and 04/02/24 tablet vomiting #10 tabs Allergies Allergy/AdvReac Type Severity Reaction Status Date / Time No Known Allergies Allergy Verified 04/02/24 14:45 [No Known Allergies*] Review of Systems Review of Systems: Yes all other systems are reviewed and are negative PMFSH Past Medical History Medical History Anxiety Arthritis Back pain BMI 39.0-39.9,adult BMI 45.0-49.9, adult COVID-19 vaccine series completed Depression HTN (hypertension) Intestinal malabsorption following gastrectomy Low serum potassium Obesity Obesity (BMI 30-39.9) Pre-diabetes Preoperative examination Shortness of breath Sleep apnea Vitamin A deficiency Vitamin B1 deficiency Vitamin D deficiency Surgical History Hx of oral surgery No pertinent past surgical history S/P laparoscopic sleeve gastrectomy Family History Family History Father Hypertension Diabetes mellitus Mother Hypertension Brother Hypertension Depressed Mental problems Son No problems noted. Social History Social History Household Members: Significant Other Housing: Apartment Are you a primary childcare administrator to a significant other at home: No Do you presently have visiting nurse or other home services: No Alcohol intake: never Patient Tobacco Use Status: Never used Tobacco Advance Directives Date on File: 07/18/20 service: No Current occupational status: unemployed Physical Exam ED Vital Signs: Vital Signs - 24 hr 04/02/24 14:42 04/02/24 20:10 04/02/24 22:04 Temperature 98.4 F 98.0 F Pulse Rate 53 56 54 Respiratory Rate 20 17 18 Blood Pressure 177/111 H 177/102 H 161/97 H Pulse Oximetry 98 98 97 Oxygen Delivery Method Room Air Room Air Room Air BMI result Body Mass Index 33.8 Const Other: The patient is awake and alert. He looks mildly uncomfortable. Orientation/consciousness: patient oriented x3 HENMT Other: The head and face are unremarkable. Mucous membranes are moist. Eyes General: appearance normal, both eyes and all related structures Neck Neck: Yes full ROM Resp Effort & Inspection: normal respiratory effort Auscultation: clear to auscultation bilaterally Cardio Rate: regular rate Rhythm: regular rhythm Heart sounds: S1 normal heart sound present and S2 normal heart sound present GI Other: There is some right-sided abdominal tenderness. Back/Spine/Pelvis Other: There is right-sided CVA tenderness to percussion. Skin General skin exam: no rashes or lesions noted Neuro General: patient oriented x3, gait normal, moves all extremities, no focal motor deficits and CN's II-XI intact bilaterally Extrem Other: No peripheral edema Course Course Course Narrative: RME, this is a rapid medical exam performed by Miguel Carrera please refer to primary provider for complete H&P- 38-year-old male presents for evaluation of right flank pain and testicular pain. He has had a dull pain to both testicles for about 1 month and worsening pain to the right lower back over the last 3 days. Plan for labs, urinalysis, scrotal ultrasound. Medications Administered Discontinued Medications Generic Name Dose Route Start Last Admin Trade Name Daniella PRN Reason Stop Dose Admin Ketorolac Tromethamine 30 mg 04/02/24 21:06 04/02/24 21:13 Ketorolac Tromethamine 30 Mg/Ml Vial IM 04/02/24 21:07 30 mg ONCE ONE Administration Tamsulosin HCl 0.4 mg 04/02/24 23:04 04/02/24 23:19 Tamsulosin Hcl 0.4 Mg Capsule PO 04/02/24 23:05 0.4 mg ONCE ONE Administration Medical Decision Making Medical Decision Making [facility] Narrative: the patient had been seen at triage apparently complaining of testicular pain as well as some flank pain. An ultrasound of scrotum had been ordered as had blood in urine testing. These investigations were unremarkable. When I saw the patient I felt he had right-sided CVA percussion tenderness and I felt that his complaint of testicular discomfort was more right-sided than bilateral. A CT of the abdomen and pelvis without contrast to look for a kidney stone was obtained and this showed a small right distal ureteral stone with hydroureteronephrosis and right-sided perinephric stranding. Despite the radiologist's comment on these findings I do not think the patient as an acute infectious component to his presentation. he is afebrile. He is not tachycardic. Neither his urine testing or his blood testing suggest an infectious component. He will be treated for ureteral colic. since the stone is only 2 mm I think it is unlikely he will require any surgical intervention. He will therefore be referred to his PCP although he is also given contact information for the urology office. A prescription for morphine tablets and ondansetron was provided. Lab Data 04/02/24 19:33 04/02/24 19:33 Labs: Lab Results 04/02/24 Range/Units 19:33 WBC 10.6 (4.8-10.8) X10*3/uL RBC 5.41 (4.60-5.80) X10*6/uL Hgb 15.2 (14.0-18.0) g/dl Hct 45.3 (42.0-52.0) % MCV 83.7 (80.0-98.0) fL MCH 28.1 (27.0-33.0) pg MCHC 33.6 (31.0-36.0) g/dl RDW 14.8 (11.0-16.0) % Plt Count 179 (160-400) X10*3/uL MPV 11.7 (9.4-12.4) fL Immature Gran % (Auto) 0.2 (0.0-0.4) % Neut % (Auto) 73.4 H (45-73) % Lymph % (Auto) 16.5 L (20-40) % [place] % (Auto) 8.9 (2-11) % Eos % (Auto) 0.4 (0-4) % Baso % (Auto) 0.6 (0-2) % Lymph # (Auto) 1.8 (1.2-4.9) X10*3/uL [place] # (Auto) 0.9 (0.1-1.2) X10*3/uL Eos # (Auto) 0.0 (0.0-0.4) X10*3/uL Baso # (Auto) 0.1 (0.0-0.2) X10*3/uL Abs Immat Gran (auto) 0.02 (0.00-0.03) X10*3/uL Absolute Neuts (auto) 7.8 (2.0-8.3) x10*3/uL Absolute Nucleated RBC 0.000 (0.0-0.012) X10*3/uL Nucleated RBC % (auto) 0.0 (0.0-0.2) /100WBC Sodium 143 (135-145) mmol/L Potassium 3.2 L (3.3-5.1) mmol/L Chloride 110 H (96-108) mmol/L Carbon Dioxide 25 (22-29) mmol/L Anion Gap 11 L (12-20) BUN 11 (9-16) mg/dL Creatinine 1.22 (0.5-1.4) mg/dL Estim Creat Clear Calc 100.5 Estimated GFR > 60 Random Glucose 92 (60-115) mg/dL Calcium 8.8 (8.4-10.2) mg/dL Total Bilirubin 0.8 (0.0-1.0) mg/dL AST 21 (5-37) U/L ALT 22 (0-40) U/L Alkaline Phosphatase 83 (39-117) U/L C-Reactive Protein 0.55 H (< or = 0.50) mg/dL Total Protein 7.3 (6.5-8.0) g/dL Albumin 4.0 (3.5-5.0) g/dL Lipase 18 (8-78) U/L Urine Color Yellow Urine Appearance Clear Urine pH 5.5 (5.0-9.0) Ur Specific [place] 1.020 (1.005-1.025) Urine Protein Negative (Neg-Trace) mg/dL Urine Glucose (UA) Negative (Negative) mg/dL Urine Ketones Trace (Negative) mg/dL Urine Blood Negative (Negative) Urine Nitrite Negative (Negative) Ur Leukocyte Esterase Negative (Negative) Urine RBC 0-2 (0-2) /HPF Urine WBC 0-5 (0-5) /HPF Ur Squamous Epith Cells 0-2 (0-2) /HPF Calcium Oxalate Crystal Present Urine Bacteria None Seen (None Seen) Hyaline Casts 0-2 (0-2) /LPF Chlam trachomat DNA PCR NOT DETECTED (Not Detect.) N.gonorrhoeae DNA (PCR) NOT DETECTED (Not Detect.) Discharge Plan Discharge Clinical Impression: Right ureteral calculus Patient Disposition: Home, Self-Care Instructions: Renal Colic (ED), Ureteral Stones (ED) Additional Instructions: You were having pain from a kidney stone in your right ureter. The ureter is the tube that delivers urine from the kidney to the bladder. You have a 2 mm stone at the end of your right ureter. This is a small stone which should pass on its own without a procedure. The stone is very close to the bladder and my hope is that it will pass soon. Please be aware the amount of pain a person experiences is not related to the size of the stone. Also, even with a small stone that can be hard to predict exactly how long you will continued to have symptoms. Since the stone is very small I think it would be reasonable for you to follow up with your regular doctor instead of a urologist. Therefore please call your regular doctor's office to make a follow up appointment to discuss this episode further. However we have also given you the contact information for the urology office in case your primary care doctor's office wishes you to follow up there instead. For pain you may take 2 extra-strength acetaminophen (Tylenol) up to 3 times per day. I have also sent a prescription for morphine tablets to your pharmacy that you may use as needed. Return to the emergency room if you develop a fever or vomiting or if your pain is too severe. Prescriptions: New morphine 15 mg tablet 15 mg PO Q6H PRN (Reason: pain) Qty: 10 0RF Rx Instructions: Partial Fill upon patient request. ondansetron 4 mg tablet,disintegrating 4 mg PO Q6H PRN (Reason: nausea and vomiting) Qty: 10 0RF No Action minoxidil 2.5 mg tablet 5 mg PO BID Qty: 30 0RF amlodipine 5 mg tablet 5 mg PO BID hydralazine 50 mg tablet 50 mg PO TID carvedilol 12.5 mg tablet 12.5 mg PO BID Rx Instructions: must administer with a meal/food trazodone 100 mg tablet 100 mg PO BEDTIME PRN (Reason: Sleep) zolpidem 12.5 mg tablet,ext release multiphase 12.5 mg PO BEDTIME PRN (Reason: Sleep) acetaminophen [Tylenol Extra Strength] 500 mg tablet 1,000 mg PO Q6H PRN (Reason: pain) Qty: 30 1RF Bariatric Multivitamins 45 mg iron- 800 mcg-120 mcg capsule 1 cap PO DAILY Referrals: [facility] [Provider Group] (First-time kidney stone) [place], 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
[2024-04-02 19:38] LABS: MANUAL DIFF FLAG NO
[2024-04-02 19:41] LABS: Appearance Urine Clear; Color Urine Yellow; Glucose Urine UA Negative (Negative); Leukocyte Esterase Urine Negative (Negative); Nitrite Urine Negative (Negative); PH 5.5 (5.0-9.0); Urine Blood Negative (Negative); Urine Ketones Trace mg/dL (Negative); Urine Protein Negative (Neg-Trace)
[2024-04-02 19:43] LABS: Basophils Absolute Auto 0.1 X10*3/uL (0.0-0.2); Basophils Percent Auto 0.6 % (0-2); Eosinophils Percent Auto 0.4 % (0-4); Hematocrit 45.3 % (42.0-52.0); Hemoglobin 15.2 g/dl (14.0-18.0); Imm Gran Abs Auto 0.02 X10*3/uL (0.00-0.03); Imm Gran Pct Auto 0.2 % (0.0-0.4); Lymphocytes Absolute Auto 1.8 X10*3/uL (1.2-4.9); Lymphocytes Percent Auto 16.5 % (20-40); Mean Corpuscular HGB Conc 33.6 g/dl (31.0-36.0); Mean Corpuscular Hemoglobin 28.1 pg (27.0-33.0); Mean Corpuscular Volume 83.7 fL (80.0-98.0); Mean Platelet Volume 11.7 fL (9.4-12.4); Monocytes Absolute Auto 0.9 X10*3/uL (0.1-1.2); Monocytes Percent Auto 8.9 % (2-11); Neutrophils Absolute Auto 7.8 x10*3/uL (2.0-8.3); Neutrophils Percent Auto 73.4 % (45-73); Platelet Count 179 X10*3/uL (160-400); Red Blood Count 5.41 X10*6/uL (4.60-5.80); Red Cell Distribution Width 14.8 % (11.0-16.0); White Blood Count 10.6 X10*3/uL (4.8-10.8)
[2024-04-02 19:52] LABS: Alanine Aminotransferase 22 U/L (0-40); Alkaline Phosphatase 83 U/L (39-117); Anion Gap 11 (12-20); Aspartate Amino Transferase 21 U/L (5-37); Bilirubin Total 0.8 mg/dL (0.0-1.0); Blood Urea Nitrogen 11 mg/dL (9-16); Calcium 8.8 mg/dL (8.4-10.2); Carbon Dioxide 25 mmol/L (22-29); Chloride 110 mmol/L (96-108); Creatinine Clr Calc Pharmacy 100.5; Estimated Glomerular Filt Rate > 60; Glucose Random 92 mg/dL (60-115); Lipase 18 U/L (8-78); Potassium 3.2 mmol/L (3.3-5.1); Sodium 143 mmol/L (135-145); Total Protein 7.3 g/dL (6.5-8.0)
[2024-04-02 19:57] LABS: Bacteria Urine None Seen (None Seen); Calcium Oxalate Crystals Urine Present; Hyaline Casts Urine 0-2 /LPF (0-2); RBC Urine 0-2 /HPF (0-2); Squamous Epithelial Cell Urine 0-2 /HPF (0-2); WBC Urine 0-5 /HPF (0-5)
[2024-04-02 20:10] VITALS: BP 177/102; PULSE 56; RESP 17; TEMP 36.7; O2SAT 98
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
--- OUTSIDE RECORDS SUMMARY | 2024-04-02 20:32 | XMS_ITS | Encounter Summary ---
Author Organization [facility] Address [address] [place] [address] Care Team Providers Care Graphic Design Intern Name Role Phone Juan Nix MD Primary Care Provider Un available Farhad Mcmahan MD Unavailable Encounter Details Date Type Department Care Team Description 05/04/2023 Telephone Bariatric Surgery - [place] [address] [facility] [address] [place] [address] Alyssa Alegre MD [address] [place] [address] [address] [place] [address] Social History Tobacco Use Types Packs/Day Years Used Date Smoking Tobacco: Never Smokeless Tobacco: Never Alcohol Use Standard Drinks/Week Comments Not Asked 0 (1 standard drink = 0.6 oz pur e alcohol) Sex Assigned at Date Recorded Not on file Job Start Date Occupation Industry Not on file Not on file Not on file documented as of this encounter Miscellaneous Notes * Telephone Encounter - Dee Mcclain M.A. - 05/04/2023 9:18 AM EDT Pt needs ready to submit appt per dr alegre. Can you schedule him for appt? documented in this encounter Plan of Treatment Not on file documented as of this encounter Visit Diagnoses Not on filedocumented in this encounter Care Teams Graphic Design Intern Relationship Specialty Start Date End Date Juan Nix MD PCP - General Internal Medicine 07/16/15 Farhad Mcmahan MD Specialist Cardiology 07/29/23 documented as of this encounter
--- OUTSIDE RECORDS SUMMARY | 2024-04-02 20:32 | XMS_ITS | Encounter Summary ---
Author Organization [facility] Address [address] [place] [address] Care Team Providers Care System Support Developer Name Role Phone Juan Nix MD Primary Care Provider Un available Farhad Mcmahan MD Unavailable Encounter Details Date Type Department Care Team Description 07/29/2023 SCAN [facility] [address] [place] [address] Maggie Frost NP Social History Tobacco Use Types Packs/Day Years Used Date Smoking Tobacco: Never Smokeless Tobacco: Never Alcohol Use Standard Drinks/Week Comments Not Asked 0 (1 standard drink = 0.6 oz pur e alcohol) Sex Assigned at Date Recorded Not on file Job Start Date Occupation Industry Not on file Not on file Not on file documented as of this encounter Plan of Treatment Not on file documented as of this encounter Visit Diagnoses Not on filedocumented in this encounter Care Teams System Support Developer Relationship Specialty Start Date End Date Juan Nix MD PCP - General Internal Medicine 07/16/15 Farhad Mcmahan MD Specialist Cardiology 07/29/23 documented as of this encounter
--- OUTSIDE RECORDS SUMMARY | 2024-04-02 20:32 | XMS_ITS | Clinical Summary ---
Author Organization [facility] Address [address] [place] [address], [place] [address] Care Team Providers Care Job Superintendent Name Role Phone Brandon [place] MD Primary Care Provider [phone] Allergies No known active allergies Medications Blood Pressure kit 1 kit 05/22/2019 Active aMILoride (MIDAMOR) 5 MG tablet Comments: Filled Date: Jan 28 2020 12:00AM Patient Notes: TAKE 1 TABLET BY MOUTH EVERY DAY Duration: 90 07/11/2019 Active carvedilol (COREG) 12.5 MG tablet Take 1 tablet by mouth 2 (two) times a day Active amLODIPine (NORVASC) 10 MG tablet Comments: Filled Date: Jan 28 2020 12:00AM Patient Notes: TAKE 1 TABLET BY MOUTH EVERY DAY Duration: 90 04/19/2019 Active doxazosin (Cardura) 2 MG tablet Take 1 tablet by mouth 2 (two) times a day 09/24/2019 Active hydrALAZINE (APRESOLINE) 50 MG tablet Comments: Filled Date: Feb 12 2020 3:24PM Patient Notes: TAKE 1 TABLET BY MOUTH THREE TIMES A DAY Duration: 30 02/12/2020 Active traZODone (DESYREL) 100 MG tablet Take 100 mg by mouth every night Active FREESTYLE LITE test strip INSERT 1 BY INTO MACHINE ROUTE 2 TIMES EVERY DAY 11/13/2020 Active zolpidem (AMBIEN) 10 MG tablet Take 10 mg by mouth at night if needed 10/22/2020 Active Active Problems Problem Noted Date Diagnosed Date Hypertensive disorder 05/20/2020 Hypokalemia 05/20/2020 Old myocardial infarction 05/20/2020 Palpitations 05/20/2020 Obesity 05/20/2020 Essential hypertension 08/13/2015 Family History Medical History Relation Comments Heart disease Father Hypertension Father Relation Status Comments Father Unknown Mother Unknown Social History Tobacco Use Types Packs/Day Years Used Date Smoking Tobacco: Never Sex and Gender Information Value Date Recorded Sex Assigned at Not on file Legal Sex Male 4:49 PM EST Gender Identity Not on file Sexual Orientation Not on file Last Filed Vital Signs Vital Sign Reading Time Taken Comments Blood Pressure 122/85 11/17/2020 2:30 PM EDT Pulse 65 11/17/2020 2:30 PM EDT Temperature - - Respiratory Rate - - Oxygen Saturation 98% 11/17/2020 2:30 PM EDT Inhaled Oxygen Concentration - - Weight 88.5 kg (195 lb) 11/17/2020 2:30 PM EDT Height 177.8 cm (5' 10 ) 08/14/2018 12:00 PM EDT Body Mass Index 27.98 08/14/2018 12:00 PM EDT Plan of Treatment Health Maintenance Due Date Last Done Comments Hepatitis B Vaccine (1 of 3 - 19+ 3-dose series) 2004 Influenza Vaccine (#1) 2023 Pneumococcal Vaccine: Pediat rics (0 to 5 Years) and At-Risk Patients (6 to 64 Years) Aged Out No longer eligi ble based on patient's age to complete this topic Insurance MEDICAID [place] Care Teams Job Superintendent Relationship Specialty Start Date End Date Brandon [place] MD [address] [place] [address] PCP - General 03/03/20
--- OUTSIDE RECORDS SUMMARY | 2024-04-02 20:32 | XMS_ITS | Clinical Summary ---
Author Organization [employer] Address [address] [place] [address] Care Team Providers Care Clinical Nursing Intern Name Role Phone [facility] Primary Care Provider [phone] Allergies No known active allergies Medications traZODone (Desyrel) 100 MG tablet Take 100 mg by mouth at bedtime. Active prazosin (Minipress) 5 MG capsule Take 5 mg by mouth 2 times daily. 4 Active hydrOXYzine HCl (Atarax) 10 MG tablet TAKE 1 TABLET BY MOUTH ONCE A DAY NEEDED FOR SEVERE ANXIETY ONLY 4 Active carvedilol (Coreg) 6.25 MG tabletIndications: Essential hypertension Take 1 tablet (6.25 mg) by mouth with breakfast and with evening meal. 60 tablet 11 4 05/02/19 25 Active aspirin 81 MG EC tabletIndications: Essential hypertension Take 1 tablet (81 mg) by mouth in the morning. 30 tablet 11 4 05/02/19 25 Active Blood Pressure kitIndications:Ess ential hypertension Use as directed 1 kit 4 Active atorvastatin (Lipitor) 20 MG tabletIndications: Mixed hyperlipidemia Take 1 tablet (20 mg) by mouth in the morning. 30 tablet 11 4 05/02/19 25 Active amLODIPine (Norvasc) 5 MG tabletIndications: Essential hypertension Take 1 tablet (5 mg) by mouth in the morning. 30 tablet 11 4 05/02/19 25 Active polyethylene glycol, PEG, 3350 (MiraLax) 17 GM/SCOOP powderIndications: Constipation, unspecified constipation type Take 17 g by mouth in the morning. 527 g 2 4 Active omeprazole (PriLOSEC) 20 MG capsuleIndications :Essential hypertension TAKE 1 CAPSULE BY MOUTH EVERY MORNING 90 capsule 1 4 Active amLODIPine (Norvasc) 10 MG tablet Take 10 mg by mouth Once per day. 4 Active Active Problems Problem Noted Date Diagnosed Date Mixed hyperlipidemia 04/04/2022 Chronic low back pain 03/29/2022 Type 2 diabetes mellitus without complication Overview (05/01/2023): Medications discontinued after bariatric surgery Microalbumin: Foot Exam: Complete at follow up Eye Exam: Discuss at follow up ASCVD: Calculate pending updated labs Statin: No ASA: No JESSI/ARB: No Encouraged regular aerobic exercise for improved glycemic control Encouraged daily foot checks Encouraged lean protein snacks and to avoid foods high in sugar and simple carbohydrates Treatment Goals: A1c goal: <7% FBG goal: <130 2 hour post prandial goal: <180 Old myocardial infarction 05/20/2020 Palpitations 05/20/2020 Obstructive sleep apnea syndrome 06/20/2018 Essential hypertension 08/13/2015 Overview (05/01/2023): Amlodipine 5mg daily Hx of RI approx [address] Khalil--discharged d/t non compliance Maintenance: - Aerobic exercise to reduce BP. Initial goal of 30 min walk 3-5x/week. Increase as tolerated. - low-sodium diet (goal: <2g/day) and heart healthy diet such as DASH to reduce BP and prevent ASCVD. - Home BP monitoring 1-2 x day with goal of <140/90. - Seek immediate medical attention for chest pain, palpitations, SOB, syncope, or sudden changes in mental status. - Do not change or discontinue current prescriptions without first consulting health care provider Encounters Date Type Department Care Team Description 04/02/2024 Orders Only [facility] External Provider, [facility] 01/02/2024 Patient Outreach [facility] [address] [place] [address] [facility], [facility] Transition Of Care (Tcm) (HDF-unscheduled due to surgery ) 01/02/2024 Patient Outreach [facility] [address] [place] [address] [facility] Transition Of Care (Tcm) (HDF- unscheduled due to surgery ) from Last 3 Months Family History Medical History Relation Name Comments Hypertension Mother Relation Name Status Comments Mother Social History Tobacco Use Types Packs/Day Years Used Date Smoking Tobacco: Never Smokeless Tobacco: Never Alcohol Use Standard Drinks/Week Comments Not Currently 0 (1 standard drink = 0.6 oz pur e alcohol) Alcohol Answer Date Recorded Frequency of Alcohol Consumption Not on file 05/02/2023 Average Number of Drinks Not on file 024 Frequency of Binge Drinking Not on file 04/21 Score 0 05/02/2023 Depression Answer Date Recorded Patient Health Questionnaire-9 Score 24 05/02/2023 Patient Health Questionnaire-9 Score 24 05/02/2023 Last PHQ-9: Questionnaire Data Not on file 0 05/02/2023 Housing Stability Answer Date Recorded What is your housing situation today? I have [facility] 05/02/[address] you li ve. Do you have problems with any of the following? None of the above 05/02/2023 Food Insecurity Answer Date Recorded Within the past 12 months, y ou worried that your food would run out before you got money to buy more: Never True 05/02/2023 Within the past 12 months,th e food you bought just didn't last and you didn't have enough money to get more: Never True 12/2023 Transportation Answer Date Recorded In the past 12 months, has l ack of transportation kept you from medical appts, meetings, work or from getting things needed for daily living? No 05/02/2023 Utilities Answer Date Recorded In the past 12 months, has t he electric, gas, oil or water company threatened to shut off services in your home? No 05/02/2023 Depression Answer Date Recorded Patient Health Questionnaire-2 Score 6 05/02/2023 Sex and Gender Information Value Date Recorded Sex Assigned at Male 12/21/2021 10:30 AM EDT Legal Sex Male 10:30 AM EDT Gender Identity Male 12/21/2021 10:30 AM EDT Sexual Orientation Straight 12/21/2021 10 :30 AM EDT Last Filed Vital Signs Vital Sign Reading Time Taken Comments Blood Pressure 166/126 03/29/2022 2:09 PM EST Pulse 87 05/02/2023 9:37 AM EDT Temperature 36.6 ??C (97.8 ??F) 05/02/2023 9:37 AM ED T Respiratory Rate 20 05/02/2023 9:37 AM EDT Oxygen Saturation 97% 03/29/2022 2:09 PM EST Inhaled Oxygen Concentration - - Weight 131 kg (288 lb 3.2 oz) 05/02/2023 9:37 AM EDT Height 174 cm (5' 8.5 ) 05/02/2023 9:37 AM EDT Body Mass Index 43.18 05/02/2023 9:37 AM EDT Plan of Treatment Upcoming Encounters Date Type Department Care Team (Late st Contact Info) Description 05/30/2024 10:30 AM EDT Office Visit [facility] [address], [place] [phone] [facility] [address] [place], [place] [phone] Health Maintenance Due Date Last Done Comments HIV Screening 1985 Diabetes: Foot Exam 09/06/1995 Eye Exam 09/06/1995 Family Planning (PISQ) 2000 Hepatitis C Screening 09/06/2003 Hepatitis B Vaccines (1 of 3 - 19+ 3-dose series) 2004 Pneumococcal Vaccine: Pediatrics (0 to 5 Years) and At-Risk Patients (6 to 49) Years) (2 of 2 - PCV) 01/22/2022 01/22/2021 Diabetes: Hemoglobin A1C 08/02/2023 024, 04/07/2020 COVID-19 Vaccine (3 - 2023-2 5 season) 2023 07/10/2020, 06/02/2020 Influenza Vaccine (#1) 2023 , 03/27/2020, 04/24/2018 Depression Monitoring (PHQ-9) 11/02/2023, 05/02/2023 Alcohol/Substance Use Screening 05/01/2024 05/02/2023 Depression Screening 05/01/2024 05/02/2023, 05/02/2023 Diabetes: Urine Protein Screening 05/01/2024 05/02/2023, 11/17/2020, 04/07/2020 Lipid Panel 05/01/2024 05/02/2023, 04/07/2020 SDOH Screening 05/01/2024 05/02/2023 Tobacco Screening 05/04/2024 05/05/2023 DTaP/Tdap/Td Vaccines (2 - T d or Tdap) 03/27/2030 03/27/2020 Zoster Vaccines (1 of 2) 09/06/2035 RSV Patients and Patients Aged 60 years or older (1 - 1-dose 75+ series) 2060 HIB Vaccines Aged Out No longer eligi [...] patient's age to complete this topic Meningococcal Vaccine Aged Out No gill yamilex eligible based on patient's age to complete this topic RSV under 20 months Aged Out No longe r eligible based on patient's age to complete this topic Rotavirus Vaccines Aged Out No longer eligible based on patient's age to complete this topic Procedures Procedure Name Priority Date/Time Associated Diagnosis Comments LIPASE Routine 04/02/2024 7:33 PM EST COMPREHENSIVE METABOLIC PANEL Routine 04/02/2024 7:33 PM EST CBC WITH AUTO DIFFERENTIAL Routine 04/02/2024 7:33 PM EST URINALYSIS, COMPLETE, WITH REFLEX TO CULTURE Routine 04/02/2024 7:33 PM EST US SCROTUM Routine 04/02/2024 2:56 PM EST US SCROTUM DOPPLER Routine 04/02/2024 2: 56 PM EST ALBUMIN, RANDOM URINE W/CREATININE Routine 05/02/2023 11:08 AM EDT Type 2 diabetes mellitus without complication, without long-term current use of insulin ([facility]) LIPID PANEL, STANDARD Routine 05/02/2023 11:05 AM EDT Type 2 diabetes mellitus without complication, without long-term current use of insulin ([facility]) POCT GLYCATED HEMOGLOBIN, TOTAL Routine 05/02/2023 10:19 AM EDT Type 2 diabetes mellitus without complication, without long-term current use of insulin ([facility]) from Last 3 Months or Most Recently Relevant to Health Maintenance Results * Urinalysis, Complete, with Reflex to Culture (04/02/2024 7:33 PM EST) Color Urine Yellow [facility] Appearance Urine Clear [facility] PH 5.5 5.0 - 9.0 [facility] Glucose Urine UA Negative Negative mg/dL [facility] Urine Blood Negative Negative [facility] Specific [place] - Urine 1.020 1.005 - 1.025 [facility] Urine Protein Negative Neg-Trace mg/dL [facility] Urine Ketones Trace Negative mg/dL [facility] Nitrite Urine Negative Negative [facility] Leukocyte Esterase Urine Negative Negative [facility] RBC Urine 0-2 0 - 2 /HPF [facility] Urine WBC 0-5 0 - 5 /HPF [facility] Urine Squamous Epithelial Cell 0-2 0 - 2 /HPF [facility] CALCIUM OXALATE CRYSTAL, UR Present [facility] Urine Bacteria None Seen None Seen [facility] Hyaline Casts, Urine 0-2 0 - 2 /LPF [facility] 04/02/2024 7:33 PM EST 04/02/2024 7:36 PM EST Narrative [facility] - 04/02/2024 7:57 PM EST [id number], Clean Catch us Generic External Data Provider LAB URINE ORDERAB LES Final Result [facility] [address] [place] [phone] * (ABNORMAL) CBC auto differential (04/02/2024 7:33 PM EST) White Blood Count 10.6 4.8 - 10.8 X10*3/uL [facility] Red Blood Count 5.41 4.60 - 5.80 X10*6/uL [facility] Hemoglobin 15.2 14.0 - 18.0 g/dl [facility] Hematocrit 45.3 42.0 - 52.0 % [facility] Mean Corpuscular Volume 83.7 80.0 - 98.0 fL [facility] Mean Corpuscular Hemoglobin 28.1 27.0 - 33.0 pg [facility] Mean Corpuscular HGB Conc 33.6 31.0 - 36.0 g/dl [facility] Red Cell Distribution Width 14.8 11.0 - 16.0 % [facility] Platelet Count 179 160 - 400 X10*3/uL [facility] Mean Platelet Volume 11.7 9.4 - 12.4 fL [facility] Neutrophils Percent Auto 73.4(H) 45 - 73 % [facility] Imm Gran Pct Auto 0.2 0.0 - 0.4 % [facility] Lymphocytes Percent Auto 16.5(L) 20 - 40 % [facility] Monocytes Percent Auto 8.9 2 - 11 % [facility] Eosinophils Percent Auto 0.4 0 - 4 % [facility] Basophils Percent Auto 0.6 0 - 2 % [facility] NRBC Pct Auto 0.0 0.0 - 0.2 /100WBC [facility] Neutrophils Absolute Auto 7.8 2.0 - 8.3 x10*3/uL [facility] Imm Gran Abs Auto 0.02 0.00 - 0.03 X10*3/uL [facility] Lymphocytes Absolute Auto 1.8 1.2 - 4.9 X10*3/uL [facility] Monocytes Absolute Auto 0.9 0.1 - 1.2 X10*3/uL [facility] Eosinophils Absolute Auto 0.0 0.0 - 0.4 X10*3/uL [facility] Basophils Absolute Auto 0.1 0.0 - 0.2 X10*3/uL [facility] NRBC Abs Auto 0.000 0.0 - 0.012 X10*3/uL [facility] 04/02/2024 7:33 PM EST 04/02/2024 7:36 PM EST Generic External Data Provider LAB BLOOD ORDERAB LES Final Result Performing Organization Address [facility] Co de Phone Number [facility] [address] [place] [phone] * Lipase (04/02/2024 7:33 PM EST) Pathologist [facility] Lipase 18 8 - 78 U/L [facility] 04/02/2024 7:33 PM EST 04/02/2024 7:36 PM EST [employer] External Data Provider LAB BLOOD ORDERAB LES Final Result Performing Organization Address [facility] Phone Number [facility] [address] [place] [phone] * (ABNORMAL) Comprehensive Metabolic Panel (04/02/2024 7:33 PM EST) Pathologist [facility] Sodium 143 135 - 145 mmol/L [facility] Potassium 3.2(L) 3.3 - 5.1 mmol/L [facility] Chloride 110(H) 96 - 108 mmol/L [facility] Carbon Dioxide 25 22 - 29 mmol/L [facility] Anion Gap 11(L) 12 - 20 [facility] Urea Nitrogen (BUN) 11 9 - 16 mg/dL [facility] Creatinine, Serum 1.22 0.5 - 1.4 mg/dL [facility] Creatinine Clr Calc Pharmacy 100.5 [facility] Comment:eGFR (calculated fro m the MDRD study equation) and eCrCl(calculated from the Cockcroft-Gault equation) are based ondifferent parameters and may not yield comparable results.If eCrCl result is absurd, please check patient'sheight/weight. Estimated Glomerular Filt Rate >60 [facility] Comment:Chronic Kidney Disea se: Estimated GFR < 60 mL/min/[id number] Kidney Disease: Estimated GFR < 15 mL/min/1.73m2 Glucose 92 60 - 115 mg/dL [facility] Calcium 8.8 8.4 - 10.2 mg/dL [facility] Bilirubin, Total 0.8 0.0 - 1.0 mg/dL [facility] Aspartate Amino Transferase 21 5 - 37 U/L [facility] Alanine Aminotransferase 22 0 - 40 U/L [facility] Total Protein 7.3 6.5 - 8.0 g/dL [facility] Albumin Level 4.0 3.5 - 5.0 g/dL [facility] Alkaline Phosphatase 83 39 - 117 U/L [facility] 04/02/2024 7:33 PM EST 04/02/2024 7:36 PM EST us Generic External Data Provider LAB BLOOD ORDERAB LES Final Result Performing Organization Address City/State/[facility] Co de Phone Number [facility] [address] [place] [address] [phone] * US SCROTUM DOPPLER (04/02/2024 2:56 PM EST) Anatomical Region Laterality Modality Abdomen Ultrasound 04/02/2024 2:56 PM EST Narrative 04/02/2024 3:38 PM EST ? [facility] ?[address] [place] [address] ?[place] [address] ? Ultrasound Report ? Signed ? Patient: Jennings Mejía,Zack ?MR#: [id number] ?? [id number] ? : 1985 ?Acct:[id number] ? Age/Sex: 38 / M ?ADM Date: 02/10/25 ? Loc: HO.ED ? Attending Dr: ? Ordering Physician: Isauro Carrera ?? Date of Service: 04/02/24 ?? Procedure(s): US scrotum doppler ?? Accession Number(s): [id number] ? cc: Isauro Carrera; [facility] ? EXAMINATION: ?? US SCROTUM ? CLINICAL INFORMATION: ?? Pain in the right testicle for one month.. ? COMPARISON: ?? None available. ? TECHNIQUE: ?? A sonogram of the scrotum was performed assessing rivera-scale appearance ?? and color Doppler flow. Spectral Doppler analysis of the arterial and ?? venous flow were performed in the testes bilaterally. ? FINDINGS: ? RIGHT: Right testicle measures 4.4 x 2.4 x 3.2 cm, volume 17.2 mL. No ?? focal testicular parenchymal lesions are visualized. Spectral Doppler ?? analysis of the arterial and venous flow is normal in the right testis. ? Right epididymal head is normal in size. There is small amount of fluid ?? in the right scrotal sac. Right epididymal Doppler flow is normal. ? LEFT: Left testicle measures 4.5 x 2.5 x 2.9 cm, volume 17.3 mL. No ?? focal testicular parenchymal lesions are visualized. Spectral Doppler ?? analysis of the arterial and venous flow is normal in the left testis. ? Left epididymal head is normal in size. There is small amount of free ?? fluid in the scrotal sac. ?? There is prominent pampiniform plexus. Left epididymal Doppler flow is ?? normal. ? US/US scrotum doppler ?? IMPRESSION: ?? No testicular torsion. ?? Bilateral hydrocele, left greater than the right side. ?? Varicocele, left-sided. ? Electronically signed by: ??Zak Potter MD ??04/02/2024 03:35 PM ?? EST RP ? Dictated By: ?Zak Ferguson MD ? Signed By: ?<Electronically signed by Zak Resendiz MD in OV> ? 04/02/24 1535 ? DD/ 1456 ? TD/TT: 04/02/24 1510 ? Glove Machine Operator: ? Procedure Note Delfino Mosley - 04/02/[address] [address] Ultrasound Report Signed Patient: Josefina Hendrickson#: [id number] : 1985Acct:[id number] Age/Sex: 38 / MADM Date: 04/02/24 Loc: HO.ED Attending Dr: Ordering Physician: Isauro Carrera Date of Service: 04/02/24 Procedure(s): US scrotum doppler Accession Number(s): [id number] cc: Isauro Carrera; [facility] HEALTH AND SAFETY ADVISOR EXAMINATION: US SCROTUM CLINICAL INFORMATION: Pain in the right testicle for one month.. COMPARISON: None available. TECHNIQUE: A sonogram of the scrotum was performed assessing rivera-scale appearance and color Doppler flow. Spectral Doppler analysis of the arterial and venous flow were performed in the testes bilaterally. FINDINGS: RIGHT: Right testicle measures 4.4 x 2.4 x 3.2 cm, volume 17.2 mL. No focal testicular parenchymal lesions are visualized. Spectral Doppler analysis of the arterial and venous flow is normal in the right testis. Right epididymal head is normal in size. There is small amount of fluid in the right scrotal sac. Right epididymal Doppler flow is normal. LEFT: Left testicle measures 4.5 x 2.5 x 2.9 cm, volume 17.3 mL. No focal testicular parenchymal lesions are visualized. Spectral Doppler analysis of the arterial and venous flow is normal in the left testis. Left epididymal head is normal in size. There is small amount of free fluid in the scrotal sac. There is prominent pampiniform plexus. Left epididymal Doppler flow is normal. US/US scrotum doppler IMPRESSION: No testicular torsion. Bilateral hydrocele, left greater than the right side. Varicocele, left-sided. Electronically signed by: Zak Potter MD 04/02/2024 03:35 PM [facility] Dictated By: Zak Ferguson MD Signed By: <Electronically signed by Zak Resendiz MDin OV> 04/02/24 1535 DD/ 1456 TD/TT: 04/02/24 1510 Glove Machine Operator: us [facility] [place] [facility] External Provider IMG US PROCEDURES Final Result * US Scrotum (04/02/2024 2:56 PM EST) Anatomical Region Laterality Modality Body Ultrasound 04/02/2024 2:56 PM EST Narrative 04/02/2024 3:38 PM EST ? [facility] ?[address] ?[place] [address] ? Ultrasound Report ? Signed ? Patient: Zack Hendrickson ?MR#: [id number] ?? [id number] ? : 1985 ?Acct:[id number] ? Age/Sex: 38 / M ?ADM Date: 04/02/24 ? Loc: HO.ED ? Attending Dr: ? Ordering Physician: Isauro Carrera ?? Date of Service: 04/02/24 ?? Procedure(s): US scrotum ?? Accession Number(s): [id number] ? cc: Isauro Carrera; [facility] ? EXAMINATION: ?? US SCROTUM ? CLINICAL INFORMATION: ?? Pain in the right testicle for one month.. ? COMPARISON: ?? None available. ? TECHNIQUE: ?? A sonogram of the scrotum was performed assessing rivera-scale appearance ?? and color Doppler flow. Spectral Doppler analysis of the arterial and ?? venous flow were performed in the testes bilaterally. ? FINDINGS: ? RIGHT: Right testicle measures 4.4 x 2.4 x 3.2 cm, volume 17.2 mL. No ?? focal testicular parenchymal lesions are visualized. Spectral Doppler ?? analysis of the arterial and venous flow is normal in the right testis. ? Right epididymal head is normal in size. There is small amount of fluid ?? in the right scrotal sac. Right epididymal Doppler flow is normal. ? LEFT: Left testicle measures 4.5 x 2.5 x 2.9 cm, volume 17.3 mL. No ?? focal testicular parenchymal lesions are visualized. Spectral Doppler ?? analysis of the arterial and venous flow is normal in the left testis. ? Left epididymal head is normal in size. There is small amount of free ?? fluid in the scrotal sac. ?? There is prominent pampiniform plexus. Left epididymal Doppler flow is ?? normal. ? US/US scrotum ?? IMPRESSION: ?? No testicular torsion. ?? Bilateral hydrocele, left greater than the right side. ?? Varicocele, left-sided. ? Electronically signed by: ??Zak Potter MD ??04/02/2024 03:35 PM ?? EST RP ? Dictated By: ?Zak Ferguson MD ? Signed By: ?<Electronically signed by Zak Resendiz MD in OV> ? 04/02/24 1535 ? DD/ 1456 ? TD/TT: 04/02/24 1510 ? Glove Machine Operator: ? Procedure Note Donotuseinterpreter, Image - 04/02/2024 [place] [address] Ultrasound Report Signed Patient: Josefina Hendrickson#: [id number] : 1985Acct:[id number] Age/Sex: 38 / MADM Date: 04/02/24 Loc: HO.ED Attending Dr: Ordering Physician: Isauro Carrera Date of Service: 04/02/24 Procedure(s): US scrotum Accession Number(s): [id number] cc: Isauro Carrera; [facility] HEALTH AND SAFETY ADVISOR EXAMINATION: US SCROTUM CLINICAL INFORMATION: Pain in the right testicle for one month.. COMPARISON: None available. TECHNIQUE: A sonogram of the scrotum was performed assessing rivera-scale appearance and color Doppler flow. Spectral Doppler analysis of the arterial and venous flow were performed in the testes bilaterally. FINDINGS: RIGHT: Right testicle measures 4.4 x 2.4 x 3.2 cm, volume 17.2 mL. No focal testicular parenchymal lesions are visualized. Spectral Doppler analysis of the arterial and venous flow is normal in the right testis. Right epididymal head is normal in size. There is small amount of fluid in the right scrotal sac. Right epididymal Doppler flow is normal. LEFT: Left testicle measures 4.5 x 2.5 x 2.9 cm, volume 17.3 mL. No focal testicular parenchymal lesions are visualized. Spectral Doppler analysis of the arterial and venous flow is normal in the left testis. Left epididymal head is normal in size. There is small amount of free fluid in the scrotal sac. There is prominent pampiniform plexus. Left epididymal Doppler flow is normal. US/US scrotum IMPRESSION: No testicular torsion. Bilateral hydrocele, left greater than the right side. Varicocele, left-sided. Electronically signed by: Zak Potter MD 04/02/2024 03:35 PM EST RP Dictated By: Zak Ferguson MD Signed By: <Electronically signed by Zak Resendiz MDin OV> 04/02/24 1535 DD/ 1456 TD/TT: 04/02/24 1510 Glove Machine Operator: [facility] External Provider IMG US PROCEDURES Final Result * Albumin, Random Urine W/Creatinine (05/02/2023 11:08 AM EDT) Creatinine, Urine 201.34 mg/dL [facility] Microalbumin Urine 41.0 mg/L [facility] Microalbum Creatinine Ratio Ur 20.3 <30 ug/mg cr [facility] Comment:Albumin/Creatinine R atio Reference Ranges: Normal: < 30 ug/mg creatinine Microalbuminuria: 30 - 300 ug/mg creatinineClinical Albuminuria: > 300 ug/mg creatinine Urine 05/02/2023 11:0 8 AM EDT 05/02/2023 1:14 PM EDT [facility] HEALTH AND SAFETY ADVISOR LAB URINE ORDERABLES Final Re sult [facility] [address] [place] [phone] * (ABNORMAL) Lipid Panel, Standard (05/02/2023 11:05 AM EDT) Triglycerides 109 <150 mg/dL [facility] Comment:Desirable Triglyceri de: less than 150 mg/dLBorderline High Triglyceride 150-199 mg/dLHigh Triglyceride: 200-499 mg/dLVery High Triglyceride: greater than or equal to 5OO mg/dL Cholesterol 214(H) <200 mg/dL [facility] Comment:Desirable Cholestero l: less than 200 mg/dLBorderline High Cholesterol: 200-239 mg/dLHigh Cholesterol: greater than 239 mg/dL LDL Cholesterol Calculated 155(H) <100 mg/dL [facility] Comment:Desirable LDL: less than 100 mg/dLNear Optimal/Above Optimal LDL: 110- 129 mg/dLBorderline High LDL: 130-159 mg/dLHigh LDL: 160-189 mg/dLVery High LDL: greater than or equal to 190 mg/dL HDL Cholesterol 38(L) >40 mg/dL [facility] Comment:Desirable HDL: great er than 40 mg/dL Note: This HDL assay may give artificially low results in patients with liver disease. Blood Venous blood specimen / Unknown 05/02/2023 11:05 AM EDT 05/02/2023 1:02 PM EDT [facility] LAB BLOOD ORDERABLES Final Re sult [facility] [address] [place] [phone] * POCT HGB A1C (05/02/2023 10:19 AM EDT) Hemoglobin A1C 5.2 4.0 - 6.0 % QC Media Lot # [id number] Lot# Expiration Date Blood 05/02/2023 10:1 9 AM EDT [facility] POINT OF CARE TEST ENTER/EDIT ORDERABLES Final Result from Last 3 Months or Most Recently Relevant to Health Maintenance Insurance [facility] C3 Care Teams Clinical Nursing Intern Relationship Specialty Start Date End Date Ciera Adams FNP [address] [place] [phone] PCP - General Family Medicine 10/16/21
--- OUTSIDE RECORDS SUMMARY | 2024-04-02 20:32 | XMS_ITS | Encounter Summary ---
Author Organization [facility] Address [address] [place] [address] Care Team Providers Care Sizing Sponger Name Role Phone Juan Nix MD Primary Care Provider Un available Farhad Mcmahan MD Unavailable Encounter Details Date Type Department Care Team Description 06/19/2018 Conduit Mechanic Report Medical Records [address] [place] [address] [facility] Social History Tobacco Use Types Packs/Day Years Used Date Smoking Tobacco: Never Alcohol Use Standard Drinks/Week Comments [...] on filedocumented in this encounter Care Teams Sizing Sponger Relationship Specialty Start Date End Date Juan Nix MD PCP - General Internal Medicine 07/16/15 Farhad Mcmahan MD Specialist Cardiology 07/29/23 documented as of this encounter
--- OUTSIDE RECORDS SUMMARY | 2024-04-02 20:32 | XMS_ITS | Encounter Summary ---
Author Organization [facility] Address [address] [place] [address] Care Team Providers Care Shop Clerk Name Role Phone Juan Nix MD Primary Care Provider Un available Farhad Mcmahan MD Unavailable Encounter Details Date Type Department Care Team Description 05/02/2023 SCAN Medical Records [address] [place] [id number] [place] [address] Social History Tobacco Use Types Packs/Day Years [...] on file documented as of this encounter Procedures Procedure Name Priority Date/Time Associated Diagnosis Comments OUTSIDE LAB Routine 05/02/2023 documented in this encounter Results * OUTSIDE LAB (05/02/2023) Provider Abstract LAB documented in this encounter Visit Diagnoses Not on filedocumented in this encounter Care Teams Shop Clerk Relationship Specialty Start Date End Date Juan Nix MD PCP - General Internal Medicine 07/16/15 Farhad Mcmahan MD Specialist Cardiology 07/29/23 documented as of this encounter
--- OUTSIDE RECORDS SUMMARY | 2024-04-02 20:32 | XMS_ITS | Encounter Summary ---
Author Organization [facility] Address [address] [place] [address] Care Team Providers Care Log Washer Name Role Phone Juan Nix MD Primary Care Provider Un available Farhad Mcmahan MD Unavailable Encounter Details Date Type Department Care Team Description 08/24/2023 Telephone Cardio PVC POC 154 [address] [facility] [address] [place], [place] [phone] Farhad Mcmahan MD [address] [place] [address] Social History Tobacco Use Types Packs/Day Years [...] on filedocumented in this encounter Care Teams Log Washer Relationship Specialty Start Date End Date Juan Nix MD PCP - General Internal Medicine 07/16/15 Farhad Mcmahan MD Specialist Cardiology 07/29/23 documented as of this encounter
--- OUTSIDE RECORDS SUMMARY | 2024-04-02 20:32 | XMS_ITS | Encounter Summary ---
Author Organization [facility] [employer] [facility] Address [address] [place] [address] Care Team Providers Care Compounding And Finishing Supervisor Name Role Phone Juan Nix MD Primary Care Provider Un available Farhad Mcmahan MD Unavailable Encounter Details Date Type Department Care Team Description 07/29/2023 Telephone Cardio PVC [facility] [address] [place] [address] Juan Nix MD Social History Tobacco Use Types Packs/Day Years [...] on filedocumented in this encounter Care Teams Compounding And Finishing Supervisor Relationship Specialty Start Date End Date Juan Nix MD PCP - General Internal Medicine 07/16/15 Farhad Mcmahan MD Specialist Cardiology 07/29/23 documented as of this encounter
--- OUTSIDE RECORDS SUMMARY | 2024-04-02 20:32 | XMS_ITS | Encounter Summary ---
Author Organization [employer] Address [address] [facility] [address] [place] [address] Care Team Providers Care Strap Buckler Name Role Phone [facility] Primary Care Provider [phone] Reason for Visit * Reason Onset Date Comments Referral 07/05/2022 Encounter Details Date Type Department Care Team ([facility] st Contact Info) Description 07/05/2022 Telephone [facility] [address] [place], [place] [phone] [facility] [address] [place], [place] [phone] Referral Social History Tobacco Use Types Packs/Day Years [...] Orientation Straight 12/21/2021 10 :30 AM EDT documented as of this encounter Miscellaneous Notes * Telephone Encounter - Brooke Armendariz RN - 07/05/2022 1:00 PM EDT Triage call with [employer] Bioinformatician [place] [id number] Pt reports eye pain in left eye and blurry vision. Pt wears glasses but, the glasses aren't workingright now. ? Pt also reports high blood pressure but, hasn't taken BP today. Pt is requesting referral for [facility] Eye care center. Pt is advised to come to [facility] to be seen by provider today to check blood pressure and to see eye. Pt agrees with disposition and Home care reviewed. Protocol Used: Eye Pain and Other Symptoms (Adult) Protocol-Based Disposition: See in Office or Video Visit Today Video visit not offered Positive Triage Questions: * Eye pain present > 24 hours * Patient wants to be seen * All higher-acuity triage questions were negative Care Advice Discussed: * Reassurance and Education - Mild Eye Pain * Remove Contacts * Do Not Rub Eyes * Cool Wet Cloth * Artificial Tears for Dry Eyes * Computer Eye Strain - Prevention * Reasons To Call Back - Pain increases - Pain lasts over 24 hours - Pus or yellow/green discharge occurs - Blurred vision occurs - You become worse * Telephone Encounter - Paulo Simpson - 07/05/2022 12:27 PM EDT Symptom: Eye Pain - Not From Injury Outcome: Transfer to a nurse or provider NOW! Reason: Can't see, pt is requesting a referral to [facility] EYE CARE. The caller accepted this outcome Please contact at [phone] documented in this encounter Plan of Treatment Upcoming Encounters Date Type Department Care Team (Late st Contact Info) Description 05/30/2024 10:30 AM EDT Office Visit [facility] [address] [place] [address] Ciera Adams FNP [address] [place] [address] documented as of this encounter Visit Diagnoses Not on filedocumented in this encounter Additional Health Concerns Assessment Noted Time PHQ-9 Depression Total Score: 0 03/29/19 23 2:08 PM EST documented as of this encounter Care Teams Strap Buckler Relationship Specialty Start Date End Date Ciera Adams FNP [address] [place] [address] PCP - General Family Medicine 10/16/21 documented as of this encounter
--- OUTSIDE RECORDS SUMMARY | 2024-04-02 20:32 | XMS_ITS | Encounter Summary ---
Author Organization [facility] Address [address] [place] [address] Care Team Providers Care Motor Vehicle Assembly Supervisor Name Role Phone Juan Nix MD Primary Care Provider Un available Farhad Mcmahan MD Unavailable Encounter Details Date Type Department Care Team Description 07/15/2015 Hospital Medical Records [address] [place] [address] Edward Chao Social History Tobacco Use Types Packs/Day Years [...] on filedocumented in this encounter Care Teams Motor Vehicle Assembly Supervisor Relationship Specialty Start Date End Date Juan Nix MD PCP - General Internal Medicine 07/16/15 Farhad Mcmahan MD Specialist Cardiology 07/29/23 documented as of this encounter
--- OUTSIDE RECORDS SUMMARY | 2024-04-02 20:32 | XMS_ITS | Encounter Summary ---
Author Organization [employer] Address [address] [facility] [address] [place] [address] Care Team Providers Care Grades 6 Through 8 Teacher Name Role Phone [facility] Primary Care Provider [phone] Encounter Details Date Type Department Care Team (Late st Contact Info) Description 04/02/2024 Orders Only [facility] External Provider, [facility] Social History Tobacco Use Types Packs/Day Years [...] AM EDT documented as of this encounter Plan of Treatment Upcoming Encounters Date Type Department Care Team (Late st Contact Info) Description 05/30/2024 10:30 AM EDT Office Visit [facility] [address] [place], [place] [phone] [facility] [address] [place] [address] documented as of this encounter Procedures Procedure Name Priority Date/Time Associated Diagnosis Comments URINALYSIS, COMPLETE, WITH REFLEX TO CULTURE Routine 04/02/2024 7:33 PM EST CBC WITH AUTO DIFFERENTIAL Routine 04/02/2024 7:33 PM EST LIPASE Routine 04/02/2024 7:33 PM EST COMPREHENSIVE METABOLIC PANEL Routine 04/02/2024 7:33 PM EST US SCROTUM DOPPLER Routine 04/02/2024 2: 56 PM EST US SCROTUM Routine 04/02/2024 2:56 PM EST documented in this encounter Results * Lipase (04/02/2024 7:33 PM EST) Lipase 18 8 - 78 U/L [facility] 04/02/2024 7:33 PM EST 04/02/2024 7:36 PM EST us Generic External Data Provider LAB BLOOD ORDERAB LES Final Result [facility] [address] [place], [place] [phone] * (ABNORMAL) Comprehensive Metabolic Panel (04/02/2024 7:33 PM EST) Sodium 143 135 - 145 mmol/L [facility] Potassium 3.2(L) 3.3 - 5.1 mmol/L [facility] Chloride 110(H) 96 - 108 mmol/L [facility] Carbon Dioxide 25 22 - 29 mmol/L [facility] Anion Gap 11(L) 12 - 20 [facility] Urea Nitrogen (BUN) 11 9 - 16 mg/dL [facility] Creatinine, Serum 1.22 0.5 - 1.4 mg/dL [facility] Creatinine Clr Calc Pharmacy 100.5 [facility] Comment:eGFR (calculated fro m the MDRD study equation) and eCrCl(calculated from the Cockcroft-Gault equation) are based ondifferent parameters and may not yield comparable results.If eCrCl result is absurd, please check patient'sheight/weight. Estimated Glomerular Filt Rate >60 [facility] Comment:Chronic Kidney Disea se: Estimated GFR < 60 mL/min/1.61s9Tiztdu Kidney Disease: Estimated GFR < 15 mL/min/1.73m2 Glucose 92 60 - 115 mg/dL [facility] Calcium 8.8 8.4 - 10.2 mg/dL [facility] Bilirubin, Total 0.8 0.0 - 1.0 mg/dL [facility] Aspartate Amino Transferase 21 5 - 37 U/L [facility] Alanine Aminotransferase 22 0 - 40 U/L [facility] Total Protein 7.3 6.5 - 8.0 g/dL [facility] Albumin Level 4.0 3.5 - 5.0 g/dL [facility] Alkaline Phosphatase 83 39 - 117 U/L [facility] 04/02/2024 7:33 PM EST 04/02/2024 7:36 PM EST us Generic External Data Provider LAB BLOOD ORDERAB LES Final Result [facility] [address] [place] [address] [phone] * (ABNORMAL) CBC auto differential (04/02/2024 7:33 PM EST) White Blood Count 10.6 4.8 - 10.8 X10*3/uL [facility] Red Blood Count 5.41 4.60 - 5.80 X10*6/uL [facility] Hemoglobin 15.2 14.0 - 18.0 g/dl [facility] Hematocrit 45.3 42.0 - 52.0 % [facility] Mean Corpuscular Volume 83.7 80.0 - 98.0 fL [facility] Mean Corpuscular Hemoglobin 28.1 27.0 - 33.0 pg [facility] Mean Corpuscular HGB Conc 33.6 31.0 - 36.0 g/dl [facility] Red Cell Distribution Width 14.8 11.0 - 16.0 % [facility] Platelet Count 179 160 - 400 X10*3/uL [facility] Mean Platelet Volume 11.7 9.4 - 12.4 fL [facility] Neutrophils Percent Auto 73.4(H) 45 - 73 % [facility] Imm Gran Pct Auto 0.2 0.0 - 0.4 % [facility] Lymphocytes Percent Auto 16.5(L) 20 - 40 % [facility] Monocytes Percent Auto 8.9 2 - 11 % [facility] Eosinophils Percent Auto 0.4 0 - 4 % [facility] Basophils Percent Auto 0.6 0 - 2 % [facility] NRBC Pct Auto 0.0 0.0 - 0.2 /100WBC [facility] Neutrophils Absolute Auto 7.8 2.0 - 8.3 x10*3/uL [facility] Imm Gran Abs Auto 0.02 0.00 - 0.03 X10*3/uL [facility] Lymphocytes Absolute Auto 1.8 1.2 - 4.9 X10*3/uL [facility] Monocytes Absolute Auto 0.9 0.1 - 1.2 X10*3/uL [facility] Eosinophils Absolute Auto 0.0 0.0 - 0.4 X10*3/uL [facility] Basophils Absolute Auto 0.1 0.0 - 0.2 X10*3/uL [facility] NRBC Abs Auto 0.000 0.0 - 0.012 X10*3/uL [facility] 04/02/2024 7:33 PM EST 04/02/2024 7:36 PM EST us Generic External Data Provider LAB BLOOD ORDERAB LES Final Result [facility] [address] [place] [phone] * Urinalysis, Complete, with Reflex to Culture (04/02/2024 7:33 PM EST) Color Urine Yellow [facility] Appearance Urine Clear [facility] PH 5.5 5.0 - 9.0 [facility] Glucose Urine UA Negative Negative mg/dL [facility] Urine Blood Negative Negative [facility] Specific Micro - Urine 1.020 1.005 - 1.025 [facility] Urine Protein Negative Neg-Trace mg/dL [facility] Urine Ketones Trace Negative mg/dL [facility] Nitrite Urine Negative Negative [facility] Leukocyte Esterase Urine Negative Negative [facility] RBC Urine 0-2 0 - 2 /HPF [facility] Urine WBC 0-5 0 - 5 /HPF [facility] Urine Squamous Epithelial Cell 0-2 0 - 2 /HPF [facility] CALCIUM OXALATE CRYSTAL, UR Present [facility] Urine Bacteria None Seen None Seen [facility] Hyaline Casts, Urine 0-2 0 - 2 /LPF [facility] 04/02/2024 7:33 PM EST 04/02/2024 7:36 PM EST Narrative [facility] - 04/02/2024 7:57 PM EST [id number], Clean Catch us Generic External Data Provider LAB URINE ORDERAB LES Final Result [facility] [address] [place] [place] [address] [phone] * US Scrotum (04/02/2024 2:56 PM EST) Anatomical Region Laterality Modality Body Ultrasound 04/02/2024 2:56 PM EST Narrative 04/02/2024 3:38 PM EST ? [facility] ?[address] ?[place] [address] ? Ultrasound Report ? Signed ? Patient: Zack Hendrickson ?MR#: [id number] ?? [id number] ? : 1985 ?Acct:[id number] ? Age/Sex: 38 / M ?ADM Date: 04/02/24 ? Loc: HO.ED ? Attending Dr: ? Ordering Physician: Isauro Carrera ?? Date of Service: 04/02/24 ?? Procedure(s): US scrotum ?? Accession Number(s): [id number] ? cc: Isauro Carrera; Ciera Adams ? EXAMINATION: ?? US SCROTUM ? CLINICAL [...] Potter MD ??04/02/2024 03:35 PM ?? EST ? Dictated By: ?Zak Ferguson MD ? Signed By: ?<Electronically signed by Zak Resendiz MD in OV> ? 04/02/24 1535 ? DD/ 1456 ? TD/TT: 04/02/24 1510 ? Improvement Lead: ? Procedure Note Dimitri, Delfino - 04/02/2024 [place] [address] Ultrasound Report Signed Patient: Josefina Hendrickson#: [id number] : 1985Acct:[id number] Age/Sex: 38 / MADM Date: 04/02/24 Loc: HO.ED Attending Dr: Ordering Physician: Isauro Carrera Date of Service: 04/02/24 Procedure(s): US scrotum Accession Number(s): [id number] cc: Isauro Carrera; [place] CREATIVE DEVELOPER EXAMINATION: US SCROTUM CLINICAL INFORMATION: Pain in [...] 04/02/24 1535 DD/ 1456 TD/TT: 04/02/24 1510 Improvement Lead: [facility] External Provider IMG US PROCEDURES Final Result * US SCROTUM DOPPLER (04/02/2024 2:56 PM EST) Anatomical Region Laterality Modality Abdomen Ultrasound 04/02/2024 2:56 PM EST Narrative 04/02/2024 3:38 PM EST ? [facility] ?[address] ?[place] [address] ? Ultrasound Report ? Signed ? Patient: Dick Mejía,Zack ?MR#: [id number] ?? [id number] ? : 1985 ?Acct:[id number] ? Age/Sex: 38 / M ?ADM Date: 02/10/25 ? Loc: HO.ED ? Attending Dr: ? Ordering Physician: Isauro Carrera ?? Date of Service: 04/02/24 ?? Procedure(s): US scrotum doppler ?? Accession Number(s): [id number] ? cc: Isauro Carrera; [facility] ? EXAMINATION: ?? US SCROTUM ? CLINICAL [...] DD/ 1456 ? TD/TT: 04/02/24 1510 ? Improvement Lead: ? Procedure Note Delfino Mosley - 04/02/[address] [address] Ultrasound Report Signed Patient: Josefina Hendrickson#: [id number] : 1985Acct:[id number] Age/Sex: 38 / MADM Date: 04/02/24 Loc: HO.ED Attending Dr: Ordering Physician: Isauro Carrera Date of Service: 04/02/24 Procedure(s): US scrotum doppler Accession Number(s): [id number] cc: Isauro Carrera; [facility] EXAMINATION: US SCROTUM CLINICAL INFORMATION: Pain in [...] by: Zak Potter MD 04/02/2024 03:35 PM [facility] Dictated By: Zak Ferguson MD Signed By: <Electronically signed by Zak Resendiz MDin OV> 04/02/24 1535 DD/ 1456 TD/TT: 04/02/24 1510 Improvement Lead: [facility] External Provider IMG US PROCEDURES Final Result documented in this encounter Visit Diagnoses Not on filedocumented in this encounter Additional Health Concerns Assessment Noted Time PHQ-9 Depression Total Score: 24 05/01/2 024 9:40 AM EDT documented as of this encounter Care Teams Grades 6 Through 8 Teacher Relationship Specialty Start Date End Date [place] JOSEFA Vang [address] [place] [address] PCP - General Family Medicine 10/16/21 documented as of this encounter
--- OUTSIDE RECORDS SUMMARY | 2024-04-02 20:32 | XMS_ITS | Encounter Summary ---
Author Organization [facility] Address [address] [place] [address] Care Team Providers Care Security Project Manager Name Role Phone Juan Nix MD Primary Care Provider Un available Farhad Mcmahan MD Unavailable Encounter Details Date Type Department Care Team Description 11/10/2023 Pt. Non Urgent Medical Question Bariatric Surgery - [place] [address] [facility] [address] [place] [address] Neda Berry PA-C [address] [facility] [address] [place] [address] Social History Tobacco Use Types Packs/Day Years [...] on filedocumented in this encounter Care Teams Security Project Manager Relationship Specialty Start Date End Date Juan Nix MD PCP - General Internal Medicine 07/16/15 Farhad Mcmahan MD Specialist Cardiology 07/29/23 documented as of this encounter
--- OUTSIDE RECORDS SUMMARY | 2024-04-02 20:32 | XMS_ITS | Encounter Summary ---
Author Organization [facility] [employer] [facility] Address [address] [place] [address] Care Team Providers Care Director Of Product Design Name Role Phone Juan Nix MD Primary Care Provider Un available Farhad Mcmahan MD Unavailable Encounter Details Date Type Department Care Team Description 07/14/2023 SCAN Medical Records [address] [place] [address] Abstract, Provider Social History Tobacco Use Types Packs/Day Years [...] Name Priority Date/Time Associated Diagnosis Comments OUTSIDE PLAIN FILM Routine 07/14/2023 OUTSIDE LAB Routine 07/14/2023 OUTSIDE LAB Routine 07/14/2023 documented in this encounter Results * OUTSIDE PLAIN FILM (07/14/2023) Provider Abstract RADIOLOGY * OUTSIDE LAB (07/14/2023) Provider Abstract LAB * OUTSIDE LAB (07/14/2023) Provider Abstract LAB documented in this encounter Visit Diagnoses Not on filedocumented in this encounter Care Teams Director Of Product Design Relationship Specialty Start Date End Date Juan Nix MD PCP - General Internal Medicine 07/16/15 Farhad Mcmahan MD Specialist Cardiology 07/29/23 documented as of this encounter
--- OUTSIDE RECORDS SUMMARY | 2024-04-02 20:32 | XMS_ITS | Encounter Summary ---
Author Organization [facility] Address [address] [place] [address] Care Team Providers Care Bellows Assembler Name Role Phone Juan Nix MD Primary Care Provider Un available Farhad Mcmahan MD Unavailable Encounter Details Date Type Department Care Team Description 07/17/2015 [facility] Medical Records [address] [place] [address] Mary Renteria Social History Tobacco Use Types Packs/Day Years [...] on filedocumented in this encounter Care Teams Bellows Assembler Relationship Specialty Start Date End Date Juan Nix MD PCP - General Internal Medicine 07/16/15 Farhad Mcmahan MD Specialist Cardiology 07/29/23 documented as of this encounter
--- OUTSIDE RECORDS SUMMARY | 2024-04-02 20:32 | XMS_ITS | Encounter Summary ---
Author Organization [facility] Address [address] [place] [address] Care Team Providers Care Electronic Sensing Equipment Assembler Name Role Phone Juan Nix MD Primary Care Provider Un available Farhad Mcmahan MD Unavailable Encounter Details Date Type Department Care Team Description 11/11/2023 Orders Only Cardio PVC POC 154 [address] [facility] [address] [place] [address] Farhad Mcmahan MD [address] [place] [address] Cardiomyopathy, unspecified type (HCC) (Primary Dx) Social History Tobacco Use Types Packs/Day Years [...] on file documented as of this encounter Results * ME ECHO TTHRC R-T 2D W/WO M-MODE REST&STRS CONT ECG (11/16/2023) Farhad Mcmahan MD CARDIOLOGY [facility] documented in this encounter Visit Diagnoses Diagnosis Cardiomyopathy, unspecified type (HCC)- Primary documented in this encounter Care Teams Electronic Sensing Equipment Assembler Relationship Specialty Start Date End Date Juan Nix MD PCP - General Internal Medicine 07/16/15 Farhad Mcmahan MD Specialist Cardiology 07/29/23 documented as of this encounter
--- OUTSIDE RECORDS SUMMARY | 2024-04-02 20:32 | XMS_ITS | Encounter Summary ---
Author Organization [facility] Address [address] [place] [address] Care Team Providers Care Client Experience Specialist Name Role Phone Juan Nix MD Primary Care Provider Un available Farhad Mcmahan MD Unavailable Encounter Details Date Type Department Care Team Description 07/16/2020 [facility] Medical Records [address] [place] [address] Pili Serrano MD Social History Tobacco Use Types Packs/Day [...] on filedocumented in this encounter Care Teams Client Experience Specialist Relationship Specialty Start Date End Date Juan Nix MD PCP - General Internal Medicine 07/16/15 Farhad Mcmahan MD Specialist Cardiology 07/29/23 documented as of this encounter
[2024-04-02] MEDS: Ketorolac Tromethamine 30 MG/ML VIAL IM (21:13)
[2024-04-02 22:04] VITALS: BP 161/97; PULSE 54; RESP 18; O2SAT 97
[2024-04-02 22:42] LABS: C Reactive Protein 0.55 mg/dL (< or = 0.50)
[2024-04-02] MEDS: Tamsulosin HCL 0.4 MG CAPSULE PO (23:19)
[2024-04-02 23:26] VITALS: BP 161/97; PULSE 54; RESP 18; TEMP 36.7; O2SAT 97
[2024-04-03 05:06] LABS: CT PCR NOT DETECTED (Not Detect.); NG PCR NOT DETECTED (Not Detect.)
== END 2024-04-02 23:28 | disposition home or self-care (01) ==
PROVIDERS: Physician Assistant; Emergency Provider Emergency Medicine; PCP Registered Nurse
DX: N20.1 Calculus of ureter (principal); N50.812 Left testicular pain; N50.811 Right testicular pain; R10.9 Unspecified abdominal pain; I10 Essential (primary) hypertension; R31.9 Hematuria, unspecified
CPT/HCPCS: 36415; 74176; 76870; 80053; 81001; 83690; 85025; 86140; 87491; 87591; 93975; 96372; 99284; J1885

== ENCOUNTER → 2024-04-02 14:42 | Outpatient (BNV) | payer MEDICAID, SELFPAY | PROVIDERS: PCP Registered Nurse; Visit Provider Radiology Diagnostic Radiology | DX: N13.2 Hydronephrosis with renal and ureteral calculous obstruction (principal) | CPT/HCPCS: 74176; 76870; 93975 ==

== ENCOUNTER 2024-05-17 13:22 | Outpatient (AMB) | payer MEDICAID, SELFPAY ==
--- NOTE | 2024-05-17 14:02 | MHC.OFFVIS ---
Intake Visit Reasons: kidney stone Intake Note: New patient presents today for initial visit for kidney stones Urology Medication:none Blood Thinner:none Antibiotic Allergies:none Veneer Lathe Operator Required: Yes Veneer Lathe Operator Name: [id number] Allergies No Known Allergies [No Known Allergies*] Allergy (Verified 05/17/24 14:03) Medication List - Last Reconciled 05/17/24 by Jeovany Almaguer MD acetaminophen (Tylenol Extra Strength) 1,000 mg (2 x 500 mg) PO Q6H PRN amlodipine 5 mg PO BID carvedilol 12.5 mg PO BID hydralazine 50 mg PO TID minoxidil 5 mg (2 x 2.5 mg) PO BID morphine 15 mg PO Q6H PRN phuwqucddxrc-vmd-cigi-FA-vit K 45 mg iron- 800 mcg-120 mcg (Bariatric Multivitamins) 1 cap PO DAILY ondansetron 4 mg PO Q6H PRN trazodone 100 mg PO BEDTIME PRN HPI Comments Details: Zack is a 38-year-old male presenting with nephrolithiasis for evaluation as a new patient. He reported a recent visit to emergency room visit where an CT X-ray identified a small stone near the bladder. CTAP--04/02/24--Moderate right hydronephrosis and hydroureter with a 2 mm obstructing stone at the ureterovesicular junction. Since that event, he experiences occasional back pain. Family history of prostate cancer both his maternal grandfather and his maternal great-uncle. He states he previously had consultation with a bell spinner for kidney problems prior to his weight loss. (states was 420 lbs, s/p gastric surgery). Discussion Notes I discussed the likelihood of spontaneous passage of the remaining stone due to its small size. We reviewed the increased risk of stone formation associated with inadequate hydration and explored strategies to enhance fluid intake to a target of 48-64 ounces daily. The benefits of a 24-hour urine collection were detailed to assess his hydration and dietary contributions to stone formation. Recommendations were made to decrease the consumption of sugary drinks and to limit soda intake. Regarding the family history of prostate cancer, the patient is concerned and will evaluate with PSA testing. REPLACED BY [facility] Medical History Obesity (BMI 30-39.9) Intestinal malabsorption following gastrectomy Low serum potassium Obesity BMI 39.0-39.9,adult COVID-19 vaccine series completed Vitamin D deficiency Vitamin B1 deficiency Vitamin A deficiency Back pain Anxiety Depression Arthritis Pre-diabetes BMI 45.0-49.9, adult Shortness of breath Preoperative examination Sleep apnea HTN (hypertension) Surgical History S/P laparoscopic sleeve gastrectomy Hx of oral surgery No pertinent past surgical history Family History Father Hypertension Diabetes mellitus Mother Hypertension Brother Hypertension Depressed Mental problems Son No problems noted. Social History Household Members: Significant Other Housing: Apartment Are you a primary director of medicare to a significant other at home: No Do you presently have visiting nurse or other home services: No Alcohol intake: never Patient Tobacco Use Status: Never used Tobacco Advance Directives Date on File: 07/18/20 service: No Current occupational status: unemployed Review of Systems Const All systems reviewed & are unremarkable except as noted in HPI and below Reports no additional complaints Eyes Reports no additional complaints ENT Reports no additional complaints Card Reports no additional complaints Resp Reports no additional complaints GI Reports no additional complaints Reports as per HPI Musc Reports no additional complaints Skin/Breast Reports system reviewed and no additional complaints, except as documented Neuro Reports no additional complaints Psych Reports no additional complaints Endo Reports no additional complaints Antonio/Lymph Reports no additional complaints Aller/Immun Reports no additional complaints Physical Exam Const General: healthy appearing, no acute distress and well developed Orientation/consciousness: patient oriented x3 HEENT Head: Yes normocephalic and Yes atraumatic Eyes Conjunctivae: conjunctivae normal Neck Neck: Yes normal visual inspection Chest Chest palpation & inspection: normal inspection of the chest Resp Effort & Inspection: normal respiratory effort GI Inspection: Yes normal to inspection Neuro General: patient oriented x3 Psych Appearance: grossly normal Affect: normal affect Results Reviewed Results Reviewed: CLINICAL HISTORY: right flank pain 04/02/24--CT abdomen and pelvis without contrast Comparison: None Findings: The lung bases are clear. Moderate cardiomegaly. No pericardial effusion. Lung bases are clear. Liver, gallbladder, adrenal glands, left kidney, spleen, and pancreas are within normal limits. Moderate right hydronephrosis and hydroureter with a 2 mm obstructing stone at the ureterovesicular junction. Extensive right perinephric stranding. No bowel obstruction, pneumoperitoneum, or pneumatosis. Pelvic contents unremarkable. Normal appendix. The bones are intact. IMPRESSION: Moderate right hydronephrosis and hydroureter with a 2 mm obstructing stone at the ureterovesicular junction. Extensive right perinephric stranding is concerning for ascending urinary tract infection/pyelonephritis. Assessment & Plan Assessment & Plan (1) Family history of prostate cancer: Code(s): Z80.42 - Family history of malignant neoplasm of prostate Category: Medical (2) S/P laparoscopic sleeve gastrectomy: Code(s): Z98.84 - Bariatric surgery status Category: Surgical (3) Obesity (BMI 30-39.9): Code(s): E66.9 - Obesity, unspecified Category: Medical (4) Hydronephrosis: Code(s): N13.30 - Unspecified hydronephrosis Category: Medical (5) Ureteral stone: Code(s): N20.1 - Calculus of ureter Category: Medical Plan Plan - Increase fluid intake to 48 - 64 ounces daily, focusing on water and low-sugar juices. - Avoid sodas and reduce high-sugar beverages. - Expect a 24-hour urine collection kit with instructions sent by [employer]. - Perform the PSA blood test fasting with no sexual activity 48 hours prior. - Follow up in 10-12 weeks with your completed ultrasound and 24-hour urine collection results. - Seek immediate care for severe urinary symptoms, increased pain, or new symptoms. Orders: Orders PSA,Total (Free>4and<10) Today Z80.42 - Family history of malignant neoplasm of prostate Patient Instructions: The patient had an opportunity to ask questions regarding treatment plan. The patient expressed understanding and agreement with the above treatment plan. The patient is aware they should contact our office by phone for worsening of their current condition or the appearance of new symptoms. Compliance is encouraged with any medications and followup testing that is ordered. It is a privilege to be allowed the opportunity to participate in the urologic care of your patient. If you have any questions or concerns regarding treatment for the above conditions please do not hesitate to contact me. The office telephone contact is [phone]. This note is constructed in part using voice recognition software. While every effort has been made to ensure accuracy handle sander operator errors may have been included. Yours sincerely, Jeovany Almaguer MD Scribe Plan - Not visible on output: Patient was informed and verbally consented to the use of an ambient scribe for clinic note documentation during this visit. Coding Level of Care Code New Pt Level 4 (89240) Diagnoses Family history of prostate cancer Z80.42 S/P laparoscopic sleeve gastrectomy Z98.84 Obesity (BMI 30-39.9) E66.9 Hydronephrosis N13.30 Ureteral stone N20.1
== END 2024-05-17 15:11 | disposition home or self-care (01) ==
LOC: HO.HUSH 13:23
PROVIDERS: PCP Registered Nurse; Visit Provider Urology
DX: Z80.42 Family history of malignant neoplasm of prostate (principal); Z98.84 Bariatric surgery status; E66.9 Obesity, unspecified; N13.30 Unspecified hydronephrosis; N20.1 Calculus of ureter; Z13.9 Encounter for screening, unspecified
CPT/HCPCS: 99204

== ENCOUNTER → 2024-05-17 13:22 | Outpatient (BNVA) | payer MEDICAID, SELFPAY | PROVIDERS: PCP Registered Nurse; Visit Provider Urology | DX: N20.1 Calculus of ureter (principal); E66.9 Obesity, unspecified; N13.30 Unspecified hydronephrosis; Z80.42 Family history of malignant neoplasm of prostate; Z98.84 Bariatric surgery status | CPT/HCPCS: 81003; 99202 ==

== ENCOUNTER 2024-07-20 11:30 | Outpatient (REF) | payer MEDICAID, SELFPAY ==
--- OUTSIDE RECORDS SUMMARY | 2024-07-20 12:26 | XMS_ITS | Encounter Summary ---
Author Organization [employer] Address [address] [place] [address] Care Team Providers Care Gore Inserter Name Role Phone Angie [place] [facility] MANAGER Primary Care Provider [phone] Encounter Details Date Type Department Care Team ([facility] st Contact Info) Description 03/23/2023 Telephone [facility] [address] [place], [place] [id number] Ashanti Jamil LPN Social History Tobacco Use Types Packs/Day Years Used Date Smoking Tobacco: Never Smokeless Tobacco: Never Alcohol Use Standard Drinks/Week Comments Not Currently 0 (1 standard drink = 0.6 oz pur e alcohol) Depression Answer Date Recorded Patient Health Questionnaire-9 Score 0 03/29/2022 Housing Stability Answer Date Recorded What is your housing situation today? I have [facility] [facility] 12/24/[address] you li ve. Do you have problems with any of the following? None of the above 12/24/2022 Food Insecurity Answer Date Recorded Within the past 12 months, y ou worried that your food would run out before you got money to buy more: Never True 12/24/2022 Within the past 12 months,th e food you bought just didn't last and you didn't have enough money to get more: Never True 04/2022 Transportation Answer Date Recorded In the past 12 months, has l ack of transportation kept you from medical appts, meetings, work or from getting things needed for daily living? No 12/24/2022 Utilities Answer Date Recorded In the past 12 months, has t he electric, gas, oil or water company threatened to shut off services in your home? No 12/24/2022 Depression Answer Date Recorded Patient Health Questionnaire-2 Score 0 03/29/2022 Sex and Gender Information Value Date Recorded Sex Assigned at Male 12/21/2021 10:30 AM EDT Legal Sex Male 10:30 AM EDT Gender Identity Male 12/21/2021 10:30 AM EDT Sexual Orientation Straight 12/21/2021 10 :30 AM EDT documented as of this encounter Plan of Treatment Upcoming Encounters Date Type Department Care Team (Late st Contact Info) Description 08/08/2024 11:00 AM EDT Clinical Support [facility] [address] [place] [address] documented as of this encounter Visit Diagnoses Not on filedocumented in this encounter Additional Health Concerns Assessment Noted Time PHQ-9 Depression Total Score: 0 03/29/19 23 2:08 PM EST documented as of this encounter Care Teams Gore Inserter Relationship Specialty Start Date End Date Ciera Adams FNP [address] [place] [address] PCP - General Family Medicine 10/16/21 documented as of this encounter
[2024-07-20 14:16] LABS: Alanine Aminotransferase 18 U/L (0-40); Albumin Level 3.9 g/dL (3.5-5.0); Alkaline Phosphatase 85 U/L (39-117); Aspartate Amino Transferase 25 U/L (5-37); Bilirubin Total 0.9 mg/dL (0.0-1.0); Blood Urea Nitrogen 12 mg/dL (9-16); Calcium 8.9 mg/dL (8.4-10.2); Cholesterol 166 mg/dL (<200); Estimated Glomerular Filt Rate > 60; Glucose Random 77 mg/dL (60-115); HDL Cholesterol 31 mg/dL (>40); LDL Cholesterol Calculated 114 mg/dL (<100); Total Protein 6.7 g/dL (6.5-8.0); Triglycerides 106 mg/dL (<150); Uric Acid 6.1 mg/dL (3.4-7.0)
[2024-07-20 14:29] LABS: PSA,Total (Free>4and<10) 0.43 ng/mL (0.00-4.00)
[2024-07-20 14:37] LABS: Anion Gap 9 (12-20); Carbon Dioxide 27 mmol/L (22-29); Chloride 108 mmol/L (96-108); Potassium 2.9 mmol/L (3.3-5.1); Sodium 141 mmol/L (135-145)
== END 2024-07-20 11:31 | disposition home or self-care (01) ==
LOC: HO.HHCL 11:30
PROVIDERS: Urology; Visit Provider Registered Nurse
DX: Z13.89 Encounter for screening for other disorder (principal)
CPT/HCPCS: 36415; 80053; 80061; 84153; 84550

== ENCOUNTER 2024-07-20 11:42 | Outpatient (REF) | payer MEDICAID, SELFPAY ==
--- NOTE | ~2024-07-20 | XR_ITS ---
EXAMINATION: XR FOOT, LEFT CLINICAL INFORMATION: Acute gout involving toe of left foot COMPARISON: None available. TECHNIQUE: AP, lateral, and oblique views of the left foot. FINDINGS: The bones and soft tissues are normal. No fracture. Alignment is anatomic. Joint spaces are maintained. There are no erosions. There are no tophi noted. Normal plantar arch. Midfoot and hindfoot appear normal. No soft tissue abnormalities. XR/XR foot LT min 3V IMPRESSION: 1. No acute bony abnormalities left foot. No erosive arthropathy identified. Electronically signed by: Enio Burch MD 07/20/2024 11:54 AM EDT
== END 2024-07-20 11:43 | disposition home or self-care (01) ==
LOC: HO.HHCX 11:42
PROVIDERS: Visit Provider Registered Nurse
DX: M10.9 Gout, unspecified (principal)
CPT/HCPCS: 73630

== ENCOUNTER → 2024-07-20 11:45 | Outpatient (BNV) | payer MEDICAID, SELFPAY | PROVIDERS: Visit Provider Radiology Diagnostic Radiology | DX: M10.072 Idiopathic gout, left ankle and foot (principal) | CPT/HCPCS: 73630 ==

== ENCOUNTER 2024-07-20 17:43 | Emergency (ER) | payer MEDICAID, SELFPAY ==
--- NOTE | ~2024-07-20 | CT_ITS ---
CLINICAL HISTORY: headache CT head without contrast Comparison: None available Findings: No acute intracranial hemorrhage. No midline shift or hydrocephalus. No arterial territorial infarction by CT. Partially empty sella. Mild mucosal thickening of the imaged paranasal sinuses. Large left-sided mastoid effusion with remodeling of the left-sided mastoid air cells. Fluid also present in the left middle ear. No acute skull fracture. IMPRESSION: 1. No acute intracranial abnormality. 2. Abnormal appearance of the left temporal bone, with fluid in the left middle ear and fluid and remodeled left-sided mastoid air cells. Differential considerations include fluid from otomastoiditis. Simple effusion is also considered. This document has been electronically signed by: Julian Yi MD on 07/20/2024 22:03:31
[2024-07-20 18:07] VITALS: BP 155/112; PULSE 76; RESP 18; TEMP 37.2; O2SAT 98; BMI 29.3
--- NOTE | 2024-07-20 18:15 | ED.GENADULT ---
HPI - General Adult General Chief complaint: Recheck/Abnormal Lab/Rx Stated complaint: low potassium sent by Time Seen by Provider: 07/20/24 20:18 Source: patient, family and old records reviewed Mode of arrival: ambulatory Limitations: no limitations History of Present Illness ED Provider: LETICIA BLANCO narrative: 38 yo male with PMH of obesity s/p gastric sleeve, HTN, low K+, chronic R ear infection who has had abx 2 months ago and has also been dealing with R eye blurry vision for 3 months but just had normal eye appointment yesterday. He also c/o painful R swollen toe. He has no fevers, numbness, weakness, new complaints, no n/v/d. He takes no diuretics or known meds to cause low K+. He takes no K at baseline. complaint: low K Onset (ago): day(s) (few) Radiation: non-radiation Severity: mild Relieving factors: none Exacerbating factors: none Associated symptoms: other (has a number of complaints) Treatments prior to arrival: none Related Data Home Medications ?Medication ?Instructions ?Recorded ?Confirmed amlodipine 5 mg tablet 5 mg PO BID 05/15/20 05/17/24 carvedilol 12.5 mg tablet 12.5 mg PO BID 05/15/20 05/17/24 hydralazine 50 mg tablet 50 mg PO TID 05/15/20 05/17/24 trazodone 100 mg tablet 100 mg PO BEDTIME PRN Sleep 05/15/20 05/17/24 iiorrnfj-gszxxnkl-iflp 45 mg-folic 1 cap PO DAILY 07/28/20 05/17/24 acid 800 mcg-vit K 120 mcg capsule (Bariatric Multivitamins) Previous Rx's ?Medication ?Instructions ?Recorded minoxidil 2.5 mg tablet 5 mg (2 x 2.5 mg) PO BID #30 tabs 04/30/20 acetaminophen 500 mg tablet 1,000 mg (2 x 500 mg) PO Q6H PRN 07/11/20 (Tylenol Extra Strength) pain #30 tabs morphine 15 mg immediate release 15 mg PO Q6H PRN pain #10 tabs 04/02/24 tablet ondansetron 4 mg disintegrating 4 mg PO Q6H PRN nausea and 04/02/24 tablet vomiting #10 tabs cefuroxime axetil 500 mg tablet 500 mg PO BID 7 days #14 tabs 07/20/24 potassium chloride 10 mEq 10 meq PO DAILY #30 tabs 07/20/24 tablet,extended release Allergies Allergy/AdvReac Type Severity Reaction Status Date / Time No Known Allergies Allergy Verified 07/20/24 18:11 [No Known Allergies*] Review of Systems Review of Systems: Constitutional : No Fever, No Chills, No Fatigue ENT/Mouth : No sore throat, No Rhinorrhea, pos ear pain Eyes: No Eye Pain, No Swelling, No Redness, pos blurred vision Cardiovascular : No Chest Pain, No SOB, No Dyspnea on Exertion Respiratory : No Cough, No Sputum Gastrointestinal : No Nausea, No Vomiting, No Diarrhea, No abdominal Pain Genitourinary : No Dysuria, No Urinary Frequency, No Hematuria, Musculoskeletal : No joint pain, No Myalgias, No Joint Swelling Skin : No Skin Lesions, pos rash Neuro : No Weakness, No Numbness, No Dizziness, positive Headache Psych : No Anxiety/Panic, No Depression All other systems reviewed and are negative COUNTS INCLUDE 234 BEDS AT THE [facility] Past Medical History Attestation statement: The following information was validated with the patient. Source: old records reviewed Medical History Obesity (BMI 30-39.9) Intestinal malabsorption following gastrectomy Low serum potassium Obesity BMI 39.0-39.9,adult COVID-19 vaccine series completed Vitamin D deficiency Vitamin B1 deficiency Vitamin A deficiency Back pain Anxiety Depression Arthritis Pre-diabetes BMI 45.0-49.9, adult Shortness of breath Preoperative examination Sleep apnea HTN (hypertension) Surgical History S/P laparoscopic sleeve gastrectomy Hx of oral surgery No pertinent past surgical history Family History Family History Father Hypertension Diabetes mellitus Mother Hypertension Brother Hypertension Depressed Mental problems Son No problems noted. Social History Social History Household Members: Significant Other Housing: Apartment Are you a primary director of career services to a significant other at home: No Do you presently have visiting nurse or other home services: No Alcohol intake: never Patient Tobacco Use Status: Never used Tobacco Smoked in Last 30 Days: No Use of substances other than those prescribed or required for medical reasons: No Advance Directives: Yes Advance Directives on File: Yes Advance Directives Date on File: 07/18/20 Do you have a plan to hurt others: No Plan service: No Current occupational status: unemployed Physical Exam ED Vital Signs: Vital Signs - 24 hr 07/20/24 18:07 07/20/24 20:30 Temperature 99.0 F 98.2 F Pulse Rate 76 44 L Respiratory Rate 18 11 L Blood Pressure 155/112 H 149/93 H Pulse Oximetry 98 97 Oxygen Delivery Method Room Air Room Air BMI result Body Mass Index 29.3 Appearance: Alert. Oriented X3. No acute distress. Eyes: Pupils equal, round and reactive to light. ENT: Pharynx normal. L TM opacified no hole but yellow exudates in canal and behind drum? cholesteatoma, no erythema noted. R TM normal, no L mastoid ttp Neck: Normal inspection. Neck supple. CVS: Normal heart rate and rhythm. Pulses normal. Respiratory: No respiratory distress. Breath sounds normal. Abdomen: Soft and nontender. Skin: Skin warm and dry. Normal skin color. Normal skin turgor. Extremities: No lower extremity edema. R great toe mild redness and ingrown toenail no paronychia Neuro: Oriented X 3. No motor deficit. No sensory deficit. CN2-12 intact Course Course Course Narrative: 38-year-old male sent by primary care provider for low potassium also patient completed high blood pressure, heart palpitation and lower back pain. Patient denies any shortness of breath slurred speech, facial droop or paralysis of extremities. Labs EKG ordered. UA ordered. Reevaluation(s) Reevaluation #1: abnormal CT scan of head but his pain and symptoms seem more chronic given 3+ months of duration will start on abx and they have ENT number they just need to call and PCP put through referral I do not think he has acute mastoiditis Medications Administered Discontinued Medications Generic Name Dose Route Start Last Admin Trade Name Freq PRN Reason Stop Dose Admin Potassium Chloride 40 meq 07/20/24 20:20 07/20/24 20:42 Potassium Chloride Er 20 Meq Tab.Er.Prt PO 07/20/24 20:21 40 meq ONCE ONE Administration Medical Decision Making Medical Decision Making MDM Narrative: 38 yo male with PMH of obesity s/p gastric sleeve, HTN, low K+, chronic R ear infection here with another AOM - ceftin to be ordered given he also has low grade mild redness to R great toe - should cover both. He also c/o having recent low K - now 3.1 will give oral 40meq and start on 10meq per day. He has many complaints - some low back pain but no CP/SOB, fevers, dysuria, n/v/d. He has no saddle anesthesia or b/b incontinence. He is neuro intact. Given his chronic headaches and 3 month of chronic R eye changes despite normal eye exam CT head for mass ordered. Differential Diagnosis Differential Diagnoses: The differential diagnosis associated with the presentation includes low K, AOM, cholesteatoma, chronic back pain, ingrown toenail Admission/Observation Consideration of admission/observation: Escalation of care including admission/observation considered no acute findings, stable for DC Lab Data MDM Lab Attestation statement: I reviewed the patient's lab results. K 3.1 07/20/24 18:35 07/20/24 18:35 Labs: Lab Results 07/20/24 07/20/24 Range/Units 18:35 22:02 WBC 6.3 (4.8-10.8) X10*3/uL RBC 4.96 (4.60-5.80) X10*6/uL Hgb 13.9 L (14.0-18.0) g/dl Hct 40.3 L (42.0-52.0) % MCV 81.3 (80.0-98.0) fL MCH 28.0 (27.0-33.0) pg MCHC 34.5 (31.0-36.0) g/dl RDW 14.1 (11.0-16.0) % Plt Count 183 (160-400) X10*3/uL MPV 11.4 (9.4-12.4) fL Immature Gran % (Auto) 0.2 (0.0-0.4) % Neut % (Auto) 63.7 (45-73) % Lymph % (Auto) 26.2 (20-40) % Ross % (Auto) 7.2 (2-11) % Eos % (Auto) 2.1 (0-4) % Baso % (Auto) 0.6 (0-2) % Lymph # (Auto) 1.7 (1.2-4.9) X10*3/uL Ross # (Auto) 0.5 (0.1-1.2) X10*3/uL Eos # (Auto) 0.1 (0.0-0.4) X10*3/uL Baso # (Auto) 0.0 (0.0-0.2) X10*3/uL Abs Immat Gran (auto) 0.01 (0.00-0.03) X10*3/uL Absolute Neuts (auto) 4.0 (2.0-8.3) x10*3/uL Absolute Nucleated RBC 0.000 (0.0-0.012) X10*3/uL Nucleated RBC % (auto) 0.0 (0.0-0.2) /100WBC Sodium 144 (135-145) mmol/L Potassium 3.1 L (3.3-5.1) mmol/L Chloride 110 H (96-108) mmol/L Carbon Dioxide 26 (22-29) mmol/L Anion Gap 11 L (12-20) BUN 11 (9-16) mg/dL Creatinine 0.96 (0.5-1.4) mg/dL Estim Creat Clear Calc 119.2 Estimated GFR > 60 Random Glucose 75 (60-115) mg/dL Calcium 8.7 (8.4-10.2) mg/dL Magnesium 2.0 (1.6-2.6) mg/dL Total Bilirubin 0.8 (0.0-1.0) mg/dL AST 23 (5-37) U/L ALT 18 (0-40) U/L Alkaline Phosphatase 84 (39-117) U/L Troponin I High Sens < 2.7 (<3.5-35.0) ng/L B-Natriuretic Peptide 50 (<100) pg/mL Total Protein 6.6 (6.5-8.0) g/dL Albumin 3.9 (3.5-5.0) g/dL Urine Color Yellow Urine Appearance Clear Urine pH 6.5 (5.0-9.0) Ur Specific [place] 1.015 (1.005-1.025) Urine Protein Negative (Neg-Trace) mg/dL Urine Glucose (UA) Negative (Negative) mg/dL Urine Ketones Negative (Negative) mg/dL Urine Blood Negative (Negative) Urine Nitrite Negative (Negative) Ur Leukocyte Esterase Negative (Negative) Independent Interpretation I performed an independent interpretation of an: EKG and CT Scan (normal ) Interpretation: Rate: 59 Rhythm: sinus bradycardia [place]: left, LVH Normal P waves. Normal HEATHER. Normal QRS complex. ST T wave : no BASIL, inverted t wave III qTC: 423 prior studies: no change from prior The study has been interpreted contemporaneously by me. . Radiology Impression Discussion of test interpretation with radiology: I have reviewed the radiologist's reading. Independent Historian Clinical information obtained from an independent historian. History obtained from or confirmed by: Spouse External Record Review External record reviewed: Inpatient record and Outpatient record Prescription Management I considered prescription management with: Antibiotic and Other Discharge Plan Discharge Clinical Impression: Acute hypokalemia, Ingrowing toenail with infection, Chronic ear infection Patient Disposition: Home, Self-Care Instructions: Ingrown Nail (ED), Hypokalemia (ED), Ear Infection (ED) Additional Instructions: K 3.1, labs normal otherwise - CT head no acute findings in brain but L ear area and sinus area shows fluid collection this is likely chronic given the fact that you have had this for months return for any worsening symptoms or concerns ask your pcp for podiatry referral monitor for increased redness, yellow drainage follow up with your doctor next week you need to call ENT doctor as soon as possible Prescriptions: New cefuroxime axetil 500 mg tablet 500 mg PO BID 7 Days Qty: 14 0RF potassium chloride 10 mEq tablet extended release 10 meq PO DAILY Qty: 30 0RF No Action minoxidil 2.5 mg tablet 5 mg PO BID Qty: 30 0RF morphine 15 mg tablet 15 mg PO Q6H PRN (Reason: pain) Qty: 10 0RF Rx Instructions: Partial Fill upon patient request. ondansetron 4 mg tablet,disintegrating 4 mg PO Q6H PRN (Reason: nausea and vomiting) Qty: 10 0RF amlodipine 5 mg tablet 5 mg PO BID hydralazine 50 mg tablet 50 mg PO TID carvedilol 12.5 mg tablet 12.5 mg PO BID Rx Instructions: must administer with a meal/food trazodone 100 mg tablet 100 mg PO BEDTIME PRN (Reason: Sleep) acetaminophen [Tylenol Extra Strength] 500 mg tablet 1,000 mg PO Q6H PRN (Reason: pain) Qty: 30 1RF Bariatric Multivitamins 45 mg iron- 800 mcg-120 mcg capsule 1 cap PO DAILY Interventions: ED Discharge Assessment Last Done: 07/20/24 22:47 Discharge Date/Time: 07/20/24 22:47 Print Language: Sami
--- NOTE | 2024-07-20 18:16 | ECG_ITS ---
Test Reason : LOW POTASSIUM/PALPITATION Blood Pressure : */* mmHG Vent. Rate : 59 BPM Atrial Rate : 59 BPM P-R Int : 194 ms QRS Dur : 124 ms QT Int : 428 ms P-R-T Axes : 24 -26 2 degrees QTcB Int : 423 ms Sinus bradycardia Left ventricular hypertrophy with QRS widening ( R in aVL , Keshav product ) Abnormal ECG When compared with ECG of 11-Jul-2020 12:22, T wave inversion now evident in Inferior leads T wave amplitude has decreased in Anterior leads QT has shortened Referred By: Buck Mas Electronically Signed By: ALYCIA FUENTES MD
[2024-07-20 18:39] LABS: MANUAL DIFF FLAG NO
[2024-07-20 18:41] LABS: Basophils Percent Auto 0.6 % (0-2); Eosinophils Absolute Auto 0.1 X10*3/uL (0.0-0.4); Eosinophils Percent Auto 2.1 % (0-4); Hematocrit 40.3 % (42.0-52.0); Hemoglobin 13.9 g/dl (14.0-18.0); Imm Gran Abs Auto 0.01 X10*3/uL (0.00-0.03); Imm Gran Pct Auto 0.2 % (0.0-0.4); Lymphocytes Absolute Auto 1.7 X10*3/uL (1.2-4.9); Lymphocytes Percent Auto 26.2 % (20-40); Mean Corpuscular HGB Conc 34.5 g/dl (31.0-36.0); Mean Corpuscular Volume 81.3 fL (80.0-98.0); Mean Platelet Volume 11.4 fL (9.4-12.4); Monocytes Absolute Auto 0.5 X10*3/uL (0.1-1.2); Monocytes Percent Auto 7.2 % (2-11); Neutrophils Percent Auto 63.7 % (45-73); Platelet Count 183 X10*3/uL (160-400); Red Blood Count 4.96 X10*6/uL (4.60-5.80); Red Cell Distribution Width 14.1 % (11.0-16.0); White Blood Count 6.3 X10*3/uL (4.8-10.8)
[2024-07-20 18:56] LABS: Alanine Aminotransferase 18 U/L (0-40); Albumin Level 3.9 g/dL (3.5-5.0); Alkaline Phosphatase 84 U/L (39-117); Anion Gap 11 (12-20); Aspartate Amino Transferase 23 U/L (5-37); Bilirubin Total 0.8 mg/dL (0.0-1.0); Blood Urea Nitrogen 11 mg/dL (9-16); Calcium 8.7 mg/dL (8.4-10.2); Carbon Dioxide 26 mmol/L (22-29); Chloride 110 mmol/L (96-108); Creatinine Clr Calc Pharmacy 119.2; Estimated Glomerular Filt Rate > 60; Glucose Random 75 mg/dL (60-115); Potassium 3.1 mmol/L (3.3-5.1); Sodium 144 mmol/L (135-145); Total Protein 6.6 g/dL (6.5-8.0)
[2024-07-20 19:02] LABS: B Type Natriuretic Peptide 50 pg/mL (<100)
[2024-07-20 19:05] LABS: Troponin-I High Sensitivity < 2.7 ng/L (<3.5-35.0)
[2024-07-20 20:30] VITALS: BP 149/93; PULSE 44; RESP 11; TEMP 36.8; O2SAT 97
[2024-07-20] MEDS: Potassium Chloride ER 20 MEQ TAB.ER.PRT 40 MEQ PO (20:42)
[2024-07-20 22:10] LABS: Appearance Urine Clear; Color Urine Yellow; Glucose Urine UA Negative (Negative); Leukocyte Esterase Urine Negative (Negative); Nitrite Urine Negative (Negative); PH 6.5 (5.0-9.0); Specific Gravity - Urine 1.015 (1.005-1.025); Urine Blood Negative (Negative); Urine Ketones Negative (Negative); Urine Protein Negative (Neg-Trace)
[2024-07-20 22:47] VITALS: BP 149/93; PULSE 44; RESP 11; TEMP 36.8; O2SAT 97
== END 2024-07-20 22:47 | disposition home or self-care (01) ==
PROVIDERS: Physician Assistant; Emergency Provider Emergency Medicine; PCP Registered Nurse
DX: E87.6 Hypokalemia (principal); L60.0 Ingrowing nail; H66.90 Otitis media, unspecified, unspecified ear; H53.8 Other visual disturbances; M79.89 Other specified soft tissue disorders; M79.674 Pain in right toe(s); I10 Essential (primary) hypertension; R00.2 Palpitations; M54.50 Low back pain, unspecified; Z79.899 Other long term (current) drug therapy
CPT/HCPCS: 36415; 70450; 80053; 81003; 83735; 83880; 84484; 85025; 93005; 99284

== ENCOUNTER → 2024-07-20 18:16 | Outpatient (BNV) | payer MEDICAID, SELFPAY | PROVIDERS: Emergency Provider Emergency Medicine; PCP Registered Nurse; Visit Provider Internal Medicine Cardiovascular Disease | DX: I51.7 Cardiomegaly (principal); R00.1 Bradycardia, unspecified | CPT/HCPCS: 93010 ==

== ENCOUNTER 2024-08-06 08:14 | Outpatient (REF) | payer MEDICAID, SELFPAY ==
--- NOTE | ~2024-08-06 | XR_ITS ---
Exam: 4 view bilateral knee x-ray INDICATION: knee pain. Comparison October 01, 2020. Left knee TECHNIQUE: Bilateral AP standing, lateral, and sunrise view, bilateral knees FINDINGS: Right knee: Joint spaces are preserved. There is no joint effusion. There is a small marginal osteophyte involving inferior pole patella. Subtle osteophytes are evident along the tibial plateau. Small round ossific density is visible on the sunrise view medial to the trochlea. Left knee: Joint spaces are preserved. Small marginal osteophytes are present along the medial joint line, lateral tibial plateau, and periportal patella. There is no joint effusion. There is subtle lateral patellar tilt. XR/XR Knee Supa 3V IMPRESSION: Right knee: Subtle degenerative changes consistent with osteoarthritis. Left knee: Mild degenerative changes consistent with osteoarthritis. Mild lateral patellar tilt. Correlate for signs symptoms of ELPS (excessive lateral pressure syndrome). Electronically signed by: Merrill Mchugh MD 08/06/2024 11:00 AM EDT
--- OUTSIDE RECORDS SUMMARY | 2024-08-07 08:19 | XMS_ITS | Encounter Summary ---
Author Organization [employer] Address [address] [place] [address] Care Team Providers Care Project Management Intern Name Role Phone Angie Ciera RESPIRATORY CARE FACULTY Primary Care Provider Encounter Details Date Type Department Care Team ([facility] st Contact Info) Description 03/23/2023 Telephone [facility] CHC MED & PEDS [address] [place], [place] [phone] Ashanti Jamil LPN Social History Tobacco Use [...] Description 08/08/2024 11:00 AM EDT Clinical Support [facility] MEDICINE [address] [place] [address] 09/10/2024 3:30 PM EDT Office Visit [facility] OPTOMETRY [address] [place] [address] Mayur, Kandi, OD [address] [place] [address] documented as of this encounter Visit Diagnoses Not on filedocumented in this encounter Additional Health Concerns Assessment Noted Time PHQ-9 Depression Total Score: 0 03/29/19 23 2:08 PM EST documented as of this encounter Care Teams Project Management Intern Relationship Specialty Start Date End Date Ciera Adams FNP [address] [place] [address] PCP - General Family Medicine 10/16/21 documented as of this encounter
== END 2024-08-06 08:15 | disposition home or self-care (01) ==
LOC: HO.HOSX 08:14
PROVIDERS: Visit Provider Physician Assistant
DX: M17.0 Bilateral primary osteoarthritis of knee (principal)
CPT/HCPCS: 20610; 73562; 99212; J1010; J2003

== ENCOUNTER 2024-08-06 09:32 | Outpatient (AMB) | payer MEDICAID, SELFPAY ==
[2024-08-06 09:45] VITALS: BMI 29.3
--- NOTE | 2024-08-06 09:45 | MHC.OFFVIS ---
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 History of injections with the last one being administered 1-2 years ago. Patient was seen by his PCP and was referred to orthopedics. Today patient reports his knee pains have worsened, with frequent clicking and giving away. Patient states he's had falls because of the constant giving away. Patient reports he does not take anything for pain. Denies previous surgeries to the knees. Patient would like to discuss surgical options. He would also like to discuss bilateral knee steroid injections today. Endodontic Assistant Required: Yes Endodontic Assistant Language: Churn Drill Operator Name: Darryl [id number] Allergies No Known Allergies [No Known Allergies*] Allergy (Verified 08/06/24 09:55) Medication List - Last Reconciled 08/06/24 by Yarely Jennings PA-C amlodipine 5 mg PO BID carvedilol 12.5 mg PO BID cefuroxime axetil 500 mg PO BID 7 days hydralazine 50 mg PO TID minoxidil 5 mg (2 x 2.5 mg) PO BID morphine 15 mg PO Q6H PRN wcrimvculwih-dnw-gtci-FA-vit K 45 mg iron- 800 mcg-120 mcg (Bariatric Multivitamins) 1 cap PO DAILY ondansetron 4 mg PO Q6H PRN potassium chloride ER 10 mEq PO DAILY trazodone 100 mg PO BEDTIME PRN HPI 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 He has a h/o injections with relief. He states the pain has worsened with stairs and walking long distances. He states he has not done PT for the knees. He feels the knee will give way while walking. [facility] Medical History Obesity (BMI 30-39.9) Intestinal malabsorption following gastrectomy Low serum potassium Obesity BMI 39.0-39.9,adult COVID-19 vaccine series completed Vitamin D deficiency Vitamin B1 deficiency Vitamin A deficiency Back pain Anxiety Depression Arthritis Pre-diabetes BMI 45.0-49.9, adult Shortness of breath Preoperative examination Sleep apnea HTN (hypertension) Surgical History S/P laparoscopic sleeve gastrectomy Hx of oral surgery No pertinent past surgical history Family History Father Hypertension Diabetes mellitus Mother Hypertension Brother Hypertension Depressed Mental problems Son No problems noted. Social History Household Members: Significant Other Housing: Apartment Are you a primary resident care provider to a significant other at home: No Do you presently have visiting nurse or other home services: No Alcohol intake: never Patient Tobacco Use Status: Never used Tobacco Advance Directives Date on File: 07/18/20 service: No Current occupational status: unemployed Review of Systems Const All systems reviewed & are unremarkable except as noted in HPI and below Physical Exam Vital Signs: BMI result Body Mass Index 29.3 Const General: cooperative and no acute distress Orientation/consciousness: patient oriented x3 Resp Effort & Inspection: normal respiratory effort and able to speak in complete sentences Cardio Peripheral pulses: Peripheral pulses 2+ throughout Neuro General: patient oriented x3 Extrem Other: Bilateral knees are normal to inspection. He has tenderness bilaterally with patellar grind. Full range of motion with crepitus. Calf supple nontender neurovascularly intact. Office Procedures AMB Joint Injection/Aspiration Joint Injection/Aspiration Primary Site: right knee Secondary Site: left knee Prep: site was prepped using aseptic technique, ethochloride spray was applied and injection warnings given Injected: 80 mg of, DepoMedrol, with 8 mL of, 1% plain lidocaine and in the joint Approach Used: anterolateral Procedure: The patient tolerated the procedure well and there was some relief with the local anesthesia Coding 85057 - Glenohumeral/Tronchanteric Bursa/Intraarticular Procedure code (CPT) selection complete Results Reviewed Results Reviewed: Xrays were obtained in the office today and personally reviewed by of david knee show mild PF oa with med joint narrowing Assessment & Plan Assessment & Plan (1) Osteoarthritis of patellofemoral joints, bilateral: Code(s): M17.0 - Bilateral primary osteoarthritis of knee Category: Medical Plan: We discussed options today which include PT and bracing. An order for PT has been placed to work on ROM and strength/conditioning exercises. We also discussed the benefits of steroid injection, which she would like to proceed with today. Bilateral knees were injected today with steroid which he tolerated well. He was fit for bilateral Genumed knee braces today. He will contact physical therapy to make an appointment and if symptoms persist or worsen he will contact our office otherwise follow up as needed. Orders: Orders XR Knee Supa 3V Today M25.561 - Pain in right knee, M25.562 - Pain in left knee PT Evaluation and Treatment Today M17.0 - Bilateral primary osteoarthritis of knee Coding Level of Care Code New Pt Level 3 (53074) Complex EM visit Add On G2211 Diagnoses Osteoarthritis of patellofemoral joints, bilateral M17.0 CPT Codes Coding - Joint 7: 73509 - Glenohumeral/Tronchanteric Bursa/Intraarticular ([id number])
--- OUTSIDE RECORDS SUMMARY | 2024-08-06 10:21 | XMS_ITS | Encounter Summary ---
Author Organization [employer] Address [address] [place] [address] Care Team Providers Care Immigration Paralegal Name Role Phone Angie Ciera RESEARCH PROGRAM MANAGER Primary Care Provider [phone] Encounter Details Date Type Department Care Team ([facility] st Contact Info) Description 03/23/2023 Telephone [facility] CHC MED & PEDS [address] [place], [place] [phone] Ashanti Jamil LPN Social History Tobacco Use [...] Description 08/08/2024 11:00 AM EDT Clinical Support [facility] MEDICINE [address] [place] [address] 09/10/2024 3:30 PM EDT Office Visit [facility] OPTOMETRY [address] [place] [address] Mayur, Kandi, OD [address] [place] [address] documented as of this encounter Visit Diagnoses Not on filedocumented in this encounter Additional Health Concerns Assessment Noted Time PHQ-9 Depression Total Score: 0 03/29/19 23 2:08 PM EST documented as of this encounter Care Teams Immigration Paralegal Relationship Specialty Start Date End Date Ciera Adams FNP [address] [place] [address] PCP - General Family Medicine 10/16/21 documented as of this encounter
== END 2024-08-06 10:29 | disposition home or self-care (01) ==
LOC: HO.HOS 09:33
PROVIDERS: PCP Registered Nurse; Visit Provider Physician Assistant
DX: M17.0 Bilateral primary osteoarthritis of knee (principal)
CPT/HCPCS: 20610; 99203

== ENCOUNTER → 2024-08-06 09:35 | Outpatient (BNV) | payer MEDICAID, SELFPAY | PROVIDERS: Visit Provider Radiology Diagnostic Radiology | DX: M25.562 Pain in left knee (principal); M25.561 Pain in right knee | CPT/HCPCS: 73562 ==

== ENCOUNTER 2024-11-24 07:19 | Outpatient (REF) | payer MEDICAID, SELFPAY ==
--- NOTE | ~2024-11-24 | CT_ITS ---
CT TEMPORAL BONES WITHOUT CONTRAST TECHNIQUE: CT scan of the temporal bones was performed without intravenous contrast. Coronal and sagittal reformations were generated. COMPARISON: None available. Correlation made with CT head 09/08/2019. FINDINGS: LEFT PETROUS TEMPORAL BONE: On the left, the external auditory canal is intact and normal in size. The tympanic membrane is mildly thickened and mildly retracted. The scutum is mildly eroded. There is abnormal soft tissue opacification in Prussak's space, and throughout the epitympanum. The hypotympanum and mesotympanum are normally aerated. The ossicles demonstrate a somewhat diminutive appearance and associated osteopenia of the incus. The malleus and stapes appear intact. The mastoid antrum is opacified, as are the mastoid air cells. There is bony sclerosis of the mastoid suggesting chronicity. No definite erosions of the mastoid are noted. The tegmen tympani is intact. The tegmen mastoideum is intact. The otic capsule is normally mineralized. The middle ear structures are normally formed. The cochlea has an appropriate number of turns. The semicircular canals are normally covered by bone. There is no dehiscence. The jugular bulb is normal in position and covered by bone. The carotid canal is covered by bone. RIGHT PETROUS TEMPORAL BONE: On the right, the external auditory canal is intact and normal in size. The tympanic membrane is not retracted nor thickened. The scutum is not eroded. Prussak's space is normal. The middle ear canal is normally aerated. The mastoids and mastoid antrum are normally aerated. The otic capsule is normally mineralized. The middle ear structures are normally formed. The oval and round window have a normal appearance. The cochlea has an appropriate number of turns. The semicircular canals are normally covered by bone. There is no dehiscence. The tegmen tympani and tegmen mastoideum are intact. The jugular bulb is normal in position and covered by bone. The carotid canal is covered by bone. PARANASAL SINUSES: Normally pneumatized. TMJ's: Normal. IMAGED BRAIN: No mass effect or edema identified. Posterior fossa structures appear normal. CT/CT mastoid IMPRESSION: 1. Abnormal soft tissue opacity throughout the LEFT mastoid air cells, mastoid antrum, and throughout the epitympanum, with involvement of Prussak's space. There is bony sclerosis of the LEFT mastoid air cells without erosions, suggesting chronic mastoiditis. There is blunting of the LEFT scutum. 2. Mild thickening and retraction of the LEFT tympanic membrane. 3. Diminutive appearance of the LEFT incus, suggesting underlying erosions. 4. 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 Compared with the CT head of 2019, there appears to be no significant interval change. 5. The RIGHT petrous temporal bone appears normal. Electronically signed by: Enio Burch MD 11/26/2024 08:34 AM EDT
--- OUTSIDE RECORDS SUMMARY | 2024-11-24 07:22 | XMS_ITS | Encounter Summary ---
Author Organization [employer] Address [address] [place] [address] Care Team Providers Care Cigar Wrapper Name Role Phone Angie Ciera SPOTTER Primary Care Provider [phone] Encounter Details Date Type Department Care Team ([facility] st Contact Info) Description 03/23/[address] [facility] CHC MED & PEDS [address] [place], [place] [phone] Ashanti Jamil LPN Social History Tobacco Use [...] Care Team (Late st Contact Info) Description 12/20/2024 1:00 PM EDT Office Visit [facility] OPTOMETRY [address] [place] [address] MayurKandi cuevas, OD [address] [place] [address] 12/21/2024 10:00 AM EDT Office Visit [facility] MEDICINE [address] [place] [address] Ciera Adams FNP [address] [place] [address] documented as of this encounter Visit Diagnoses Not on filedocumented in this encounter Additional Health Concerns Assessment Noted Time PHQ-9 Depression Total Score: 0 03/29/19 23 2:08 PM EST documented as of this encounter Care Teams Cigar Wrapper Relationship Specialty Start Date End Date Ciera Adams FNP [address] [place] [address] PCP - General Family Medicine 10/16/21 documented as of this encounter
--- OUTSIDE RECORDS SUMMARY | 2024-11-24 07:22 | XMS_ITS | Clinical Summary ---
Author Organization [employer] Address [address] [place] [address] Care Team Providers Care Computer Scientist Name Role Phone [facility] Primary Care Provider [phone] Allergies No known active allergies Medications traZODone (Desyrel) 100 MG tablet Take 100 mg by mouth at bedtime. Active prazosin (Minipress) 5 MG capsule Take 5 mg by mouth 2 times daily. 03/24/19 24 Active hydrOXYzine HCl (Atarax) 10 MG tablet TAKE 1 TABLET BY MOUTH ONCE A DAY NEEDED FOR SEVERE ANXIETY ONLY 03/24/19 24 Active carvedilol (Coreg) 6.25 MG tabletIndications: Essential hypertension Take 1 tablet (6.25 mg) by mouth with breakfast and with evening meal. 60 tablet 11 05/02/19 24 Active Blood Pressure kitIndications:Ess ential hypertension Use as directed 1 kit 05/02/19 24 Active atorvastatin (Lipitor) 20 MG tabletIndications: Mixed hyperlipidemia Take 1 tablet (20 mg) by mouth in the morning. 30 tablet 11 05/02/19 24 Active polyethylene glycol, PEG, 3350 (MiraLax) 17 GM/SCOOP powderIndications: Constipation, unspecified constipation type Take 17 g by mouth in the morning. 527 g 2 05/02/19 24 Active omeprazole (PriLOSEC) [address] capsuleIndications :Essential hypertension TAKE 1 CAPSULE BY MOUTH EVERY MORNING 90 capsule 1 05/04/19 24 Active amLODIPine (Norvasc) 10 MG tablet Take 10 mg by mouth Once per day. 07/19/19 24 Active cefuroxime (Ceftin) 500 MG tablet Take 1 tablet by mouth 2 times daily. 07/22/19 25 Active desvenlafaxine (Pristiq) 50 MG 24 hr tablet TAKE 1 TABLET BY MOUTH EVERY MORNING DISCONTINUE CITALOPRAM Active pantoprazole (ProtoNix) 40 MG EC tablet Take 40 mg by mouth before breakfast. 06/26/19 25 Active potassium chloride CR (Klor-Con) 10 MEQ ER tablet Take 1 tablet by mouth Once per day. 07/22/19 25 Active losartan (Cozaar) 50 MG tabletIndications: Essential hypertension TAKE 1 TABLET BY MOUTH EVERY DAY 90 tablet 1 08/28/19 25 Active Zepbound 7.5 MG/0.5ML solution auto-injector INJECT 1 PEN SUBCUTANEOUSLY EVERY 7 DAYS Active Active Problems Problem Noted Date Diagnosed [...] Overview (05/01/2023): Amlodipine 5mg daily Hx of MO approx [address] Khalil--discharged [...] Encounters Date Type Department Care Team Description 11/14/2024 Orders Only [facility] [address] [place] [phone] Ciera Adams FNP Chronic suppurative otitis media of left ear, unspecified otitis media location (Primary Dx) 11/13/2024 Telephone [facility] [address] [place] [address] Ciera Adams FNP 11/08/2024 Telephone [facility] [address] [place] [address] CorningCiera QUALITY CONTROL MANAGER chart prep 10/31/2024 3:30 PM EDT Office Visit [facility] [address] [place] [address] Jacob Merchantn, OD Regular astigmatism of both eyes (Primary Dx) 10/31/2024 Orders Only [facility] [address] [place] [phone] Ciera Adams FNP Chronic suppurative otitis media of left ear, unspecified otitis media location (Primary Dx) 10/30/2024 Telephone [facility] [address] [place] [address] Ciera Adams FNP 10/24/2024 Telephone [facility] [address] [place] [phone] Ciera Adams FNP Error (VOID this visit) 10/23/2024 Orders Only [facility] [address] [place] [phone] Ciera Adams FNP Otitis media, recurrent, left (Primary Dx); Disorder of left mastoid 09/27/2024 Telephone [facility] [address] [place] [address] Ciera Adams FNP oct recall 09/20/2024 10:00 AM EDT Office Visit [facility] [address] [place] [address] Jacob Merchantn, OD Diabetes type 2, no ocular involvement (CMS/HCC) (Primary Dx); Peripheral visual field defect, left; Pain in periorbital region of right eye; Presbyopia 09/20/2024 Travel 08/27/2024 Refill [facility] [address] [place] [address] [facility] Essential hypertension from Last 3 Months Immunizations Immunization Administration Dates Next Due Influenza injectable quadriv alent preservative free 01/22/2021,03/27/2020,04/24/2018 Pneumococcal Polysaccharide PPSV23 01/22/2021 Tdap 03/27/2020 Family History Medical History Relation Name Comments Hypertension Mother Relation Name Status Comments Mother Social History Tobacco Use Types Packs/Day Years Used Date Smoking Tobacco: Never Smokeless Tobacco: Never Tobacco Cessation:Counseling Given: Not Answered Alcohol Use Standard Drinks/Week Comments Not Currently 0 (1 standard drink = 0.6 oz pur e alcohol) Depression Answer Date Recorded Patient Health Questionnaire-9 Score 20 05/30/2024 Patient Health Questionnaire-9 Score 20 05/30/2024 Last PHQ-9: Questionnaire Data Not on file 0 05/30/2024 Housing Stability Answer Date Recorded What is your housing situation today? I have [facility] 05/22/[address] you li ve. Do you have problems with any of the following? None of the above 05/22/2024 Food Insecurity Answer Date Recorded Within the past 12 months, y ou worried that your food would run out before you got money to buy more: Sometimes True 2024 Within the past 12 months,th e food you bought just didn't last and you didn't have enough money to get more: Never True 05/30/2024 Transportation Answer Date Recorded In the past 12 months, has l ack of transportation kept you from medical appts, meetings, work or from getting things needed for daily living? Yes, it has kept me from medical appointments or getting medications.;Yes, it has kept me from non-medical meetings, work, or getting things that I need 05/30/2024 Utilities Answer Date Recorded In the past 12 months, has t he electric, gas, oil or water company threatened to shut off services in your home? No 05/30/2024 Depression Answer Date Recorded Patient Health Questionnaire-2 Score 6 05/30/2024 Internet Access Answer Date Recorded Internet Access Q1 Yes 05/22/2024 Internet Access Q2 Not on file 05/22/2024 Sex and Gender Information Value Date Recorded Sex Assigned at Male 12/21/2021 10:30 AM EDT Legal Sex Male 10:30 AM EDT Gender Identity Male 12/21/2021 10:30 AM EDT Sexual Orientation Straight 12/21/2021 10 :30 AM EDT Last Filed Vital Signs Vital Sign Reading Time Taken Comments Blood Pressure 140/100 07/20/2024 11:18 AM EDT Pulse 60 07/20/2024 10:46 AM EDT Temperature 36.6 C (97.8 F) 07/20/2024 10:46 AM EDT Respiratory Rate 16 07/20/2024 10:46 AM EDT Oxygen Saturation 98% 05/30/2024 10:22 AM EDT Inhaled Oxygen Concentration - - Weight 97.5 kg (215 lb) 07/20/2024 10:46 AM EDT Height 177.8 cm (5' 10 ) 07/20/2024 10:46 AM EDT Body Mass Index 30.85 07/20/2024 10:46 AM EDT Plan of Treatment Upcoming Encounters Date Type Department Care Team (Late st Contact Info) Description 12/20/2024 1:00 PM EDT Office Visit [facility] [address] [place] [address] Mayur, Kandi, OD [address] [place] [address] 12/21/2024 10:00 AM EDT Office Visit [facility] [address] [place] [address] [employer], [place], QUALITY CONTROL MANAGER [address] [place] [address] Health Maintenance Due Date Last Done Comments HIV Screening 1985 Diabetes: Foot Exam 09/06/1995 Family Planning (PISQ) 2000 HPV Vaccines (1 - Male 3-dose series) 2000 Hepatitis C Screening 09/06/2003 Hepatitis B Vaccines (1 of 3 - 19+ 3-dose series) 2004 Pneumococcal Vaccine: Pediatrics (0 to 5 Years) and At-Risk Patients (6 to 49) Years (2 of 2 - PCV) 01/22/2022 01/22/2021 Diabetes: Urine Protein Screening 05/01/2024 05/02/2023, 11/17/2020, 04/07/2020 COVID-19 Vaccine ( season) 2024 07/10/2020, 06/02/2020 Influenza Vaccine (#1) 2024 , 03/27/2020, 04/24/2018 Depression Monitoring 11/29/2024 05/30/2024, 025 Diabetes: Hemoglobin A1C 11/29/2024 025, 05/02/2023, 03/22/2023, Additional history exists SDOH Screening 05/22/2025 05/22/2024 Alcohol/Substance Use Screening 05/30/2025 05/30/2024 Disability Screening 05/30/2025 05/30/2024 Lipid Panel 07/20/2025 07/20/2024, 04/21, 04/07/2020 Tobacco Screening 10/06/2025 10/06/2024 Eye Exam 09/20/2026 09/20/2024, 07/02/2024, 09/20/2024, Additional history exists DTaP/Tdap/Td Vaccines (2 - Td or Tdap) 03/27/2030 03/27/2020 Zoster Vaccines (1 [...] age to complete this topic Meningococcal B Vaccine Aged Out No l onger eligible based on patient's age to complete [...] Procedure Name Priority Date/Time Associated Diagnosis Comments OCT, OPTIC NERVE - OU - BOTH EYES Routine 09/20/2024 10:00 AM EDT Peripheral visual field defect, left LIPID PANEL, STANDARD Routine 07/20/2024 11:33 AM EDT Type 2 diabetes mellitus without complication, without long-term current use of insulin ([facility]) POCT GLYCATED HEMOGLOBIN, TOTAL Routine 05/30/2024 10:31 AM EDT Type 2 diabetes mellitus without complication, without long-term current use of insulin ([facility]) ALBUMIN, RANDOM URINE W/CREATININE Routine 05/02/2023 11:08 AM EDT Type 2 diabetes mellitus without complication, without long-term current use of insulin ([facility]) from Last 3 Months or Most Recently Relevant to Health Maintenance Results * OCT, Optic Nerve - OU - Both Eyes (09/20/2024 10:00 AM EDT) Kandi Orellana, OD - 10/08/2024 2:59 PM EDT Images from the original result were not included. OCT OPTIC NERVE INTERPRETATION Optical Coherence Tomography Interpretation Report Test Details: Baseline OCT ONH Measurements: OD OS C/D Horizontal 0.60 0.49 C/D Vertical 0.59 0.53 Disc area 1.89mm 2 1.95mm 2 RNFL Average 100 microns 92 microns Test findings: OD: Normal RNFL thickness in all quadrants. OS: Definite RNFL thinning in inferior quadrant, normal RNFL thickness in all other quadrants. Impression and Plan: Inferior RNFL thinning in the left eye with visual field defect on confrontation [employer] today. Will have the patient return in 2 months for a visual field test. Kandi Merchant OD OPHTH TOMOGRAPHY Final Result * (ABNORMAL) Lipid Panel, Standard (07/20/2024 11:33 AM EDT) Triglycerides 106 <150 mg/dL [facility] Comment:Desirable Triglyceri de: less than 150 mg/dLBorderline High Triglyceride 150-199 mg/dLHigh Triglyceride: 200-499 mg/dLVery High Triglyceride: greater than or equal to 5OO mg/dL Cholesterol 166 <200 mg/dL [facility] Comment:Desirable Cholestero l: less than 200 mg/dLBorderline High Cholesterol: 200-239 mg/dLHigh Cholesterol: greater than 239 mg/dL LDL Cholesterol Calculated 114(H) <100 mg/dL [facility] Comment:Desirable LDL: less than 100 mg/dLNear Optimal/Above Optimal LDL: 110- 129 mg/dLBorderline High LDL: 130-159 mg/dLHigh LDL: 160-189 mg/dLVery High LDL: greater than or equal to 190 mg/dL HDL Cholesterol 31(L) >40 mg/dL [facility] Comment:Desirable HDL: great er than 40 mg/dL Note: This HDL assay may give artificially low results in patients with liver disease. Blood Venous blood specimen / Unknown 07/20/2024 11:33 AM EDT 07/20/2024 1:18 PM EDT [facility] LAB BLOOD ORDERABLES Final Re sult [facility] [address] [place] [phone] * POCT HGB A1C (05/30/2024 10:31 AM EDT) Hemoglobin A1C 4.7 4.0 - 6.0 % QC Media Lot # [id number] Lot# Expiration Date Blood 05/30/2024 10:3 1 AM EDT [facility] POINT OF CARE TEST ENTER/EDIT ORDERABLES Final Result * Albumin, Random Urine W/Creatinine (05/02/2023 11:08 AM EDT) Creatinine, Urine 201.34 mg/dL [facility] Microalbumin Urine 41.0 mg/L [facility] Microalbum Creatinine Ratio Ur 20.3 <30 ug/mg cr [facility] Comment:Albumin/Creatinine R atio Reference Ranges: Normal: < 30 ug/mg creatinine Microalbuminuria: 30 - 300 ug/mg creatinineClinical Albuminuria: > 300 ug/mg creatinine Urine 05/02/2023 11:0 8 AM EDT 05/02/2023 1:14 PM EDT [facility] URINE ORDERABLES Final Re sult [facility] [address] [place] [address] [phone] from Last 3 Months or Most Recently Relevant to Health Maintenance Insurance [facility] [employer] Care Teams Computer Scientist Relationship Specialty Start Date End Date Ciera Adams FNP [address] [place] [phone] PCP - General Family Medicine 10/16/21
--- OUTSIDE RECORDS SUMMARY | 2024-11-24 07:22 | XMS_ITS | Clinical Summary ---
Author Organization [facility] Address [address] [place] [address], [place] [address] Care Team Providers Care Supervisor Car Installations Name Role Phone Brandon Florence MD Primary Care Provider [phone] Allergies No known active allergies Medications Blood [...] 19+ 3-dose series) 2004 Influenza Vaccine (#1) 2024 Pneumococcal Vaccine: Peds ( 0 to 5 Years) and At-Risk Patients (6 to 49 Years) Aged Out No longer eligible b ased on patient's age to complete this topic Insurance Medicaid [place] Care Teams Supervisor Car Installations Relationship Specialty Start Date End Date Brandon Florence MD [address] [place] [address] PCP - General 03/03/20
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
== END 2024-11-24 07:20 | disposition home or self-care (01) ==
LOC: HO.CT 07:19
PROVIDERS: Visit Provider Registered Nurse
DX: H66.3X2 Other chronic suppurative otitis media, left ear (principal); H66.92 Otitis media, unspecified, left ear; H74.92 Unspecified disorder of left middle ear and mastoid
CPT/HCPCS: 70481

== ENCOUNTER → 2024-11-24 07:22 | Outpatient (BNV) | payer MEDICAID, SELFPAY | PROVIDERS: Visit Provider Radiology Diagnostic Radiology | DX: H66.3X2 Other chronic suppurative otitis media, left ear (principal); H74.8X2 Other specified disorders of left middle ear and mastoid; H73.892 Other specified disorders of tympanic membrane, left ear | CPT/HCPCS: 70481 ==

== ENCOUNTER 2025-02-13 21:00 | Emergency (ER) | payer MEDICAID, SELFPAY ==
--- NOTE | ~2025-02-13 | CT_ITS ---
CLINICAL HISTORY: epigastric pain, previous bariatric surgery CT abdomen and pelvis with contrast Comparison: CT - CT ABDOMEN PELVIS W IV CON - 02/13/25 23:32 EST Findings: No consolidation or effusion. Stones or sludge are present within the dependent portions of the gallbladder fundus. No focal hepatic lesion identified. Pancreas and spleen are within normal limits. The adrenal glands are within normal limits. Kidneys enhance symmetrically and are non hydronephrotic. Small nonobstructing calculus in the left kidney. Abnormal mesenteric configuration, with mildly dilated loop of small bowel anterior to the transverse colon measuring 3.4 cm suggesting possible internal hernia. Pelvic contents unremarkable. Appendix is not visualized. Mild intra-abdominal and pelvic free fluid. No acute fracture. IMPRESSION: Prominent gas-filled loop of small-bowel located anterior to the transverse colon, possible internal hernia and low-grade or partial bowel obstruction. Please correlate clinically. This document has been electronically signed by: Destin Tim MD, PHD on 02/14/2025 00:47:40
[2025-02-13 21:04] VITALS: BP 186/119; PULSE 61; RESP 15; TEMP 36.8; O2SAT 94; BMI 23.2
--- OUTSIDE RECORDS SUMMARY | 2025-02-13 21:31 | XMS_ITS | Clinical Summary ---
Author Organization [employer] Address [address] [place] [address] Care Team Providers Care Child Psychiatrist Name Role Phone Angie [facility] Primary Care Provider [phone] Allergies No known active allergies Medications traZODone (Desyrel) 100 MG tablet Take 100 mg by mouth at bedtime. Active prazosin (Minipress) 5 MG capsule Take 5 mg by mouth 2 times daily. Active hydrOXYzine HCl (Atarax) 10 MG tablet TAKE 1 TABLET BY MOUTH ONCE A DAY NEEDED FOR SEVERE ANXIETY ONLY Active carvedilol (Coreg) 6.25 MG tabletIndications :Essential hypertension Take 1 tablet (6.25 mg) by mouth with breakfast and with evening meal. 60 tablet 11 Active Blood Pressure kitIndications:Es sential hypertension Use as directed 1 kit Active atorvastatin (Lipitor) 20 MG tabletIndications :Mixed hyperlipidemia Take 1 tablet (20 mg) by mouth in the morning. 30 tablet 11 Active polyethylene glycol, PEG, 3350 (MiraLax) 17 GM/SCOOP powderIndications :Constipation, unspecified constipation type Take 17 g by mouth in the morning. 527 g 2 Active omeprazole (PriLOSEC) [address] capsuleIndication s:Essential hypertension TAKE 1 CAPSULE BY MOUTH EVERY MORNING 90 capsule 1 024 Active cefuroxime (Ceftin) 500 MG tablet Take 1 tablet by mouth 2 times daily. Active desvenlafaxine (Pristiq) 50 MG 24 hr tablet TAKE 1 TABLET BY MOUTH EVERY MORNING DISCONTINUE CITALOPRAM Active pantoprazole (ProtoNix) 40 MG EC tablet Take 40 mg by mouth before breakfast. Active potassium chloride CR (Klor-Con) 10 MEQ ER tablet Take 1 tablet by mouth Once per day. Active losartan (Cozaar) 50 MG tabletIndications :Essential hypertension TAKE 1 TABLET BY MOUTH EVERY DAY 90 tablet 1 Active Zepbound 7.5 MG/0.5ML solution auto-injector INJECT 1 PEN SUBCUTANEOUSLY EVERY 7 DAYS Active pyridoxine (B-6) 50 MG tablet Take 50 mg by mouth Once per day. 2025 Active ergocalciferol (Vitamin D2) 1.25 MG (18810 UT) capsule Take 50,000 Units by mouth 1 (one) time per week. 2024 Active zinc gluconate 50 MG tablet Take 50 mg by mouth Once per day. 025 2025 Active amLODIPine (Norvasc) 5 MG tabletIndications :Essential hypertension Take 1 tablet (5 mg) by mouth in the morning. 30 tablet 11 024 2024 Discontinued Active Problems Problem Noted Date Diagnosed [...] Overview (05/01/2023): Amlodipine 5mg daily Hx of [place] approx [address] Khalil--discharged d/t non [...] Encounters Date Type Department Care Team Description 01/09/2025 10:30 AM EST Office Visit [facility] [address] [place] [address] Mayur, Kandi, OD Regular astigmatism of both eyes (Primary Dx) 01/09/2025 Travel 12/20/2024 1:00 PM EDT Office Visit [facility] [address] [place] [address] Mayur, Kandi, OD Peripheral visual field defect, left (Primary Dx) 12/20/2024 Travel 12/03/2024 Telephone [facility] [address] [place] [address] [facility] CT scan results 11/26/2024 Results Follow-Up [facility] [address] [place] [address] [facility] CT TEMPORAL BONE WO CONTRAST 11/14/2024 Orders Only [facility] [address] [place] [address] [facility] Chronic suppurative otitis media of left ear, unspecified otitis media location (Primary Dx) from Last 3 Months Immunizations Immunization Administration [...] Care Team (Late st Contact Info) Description 03/25/2025 11:30 AM EST Office Visit [facility] [address] [place] [address] Mayur, Kandi, OD [address] [place] [address] Health Maintenance Due Date Last Done Comments [...] 05/01/2024 05/02/2023, 11/17/2020, 04/07/2020 COVID-19 Vaccine ( - season) 2024 07/10/2020, 06/02/2020 Influenza Vaccine (#1) 2024 , 03/27/2020, 04/24/2018 Depression Monitoring 11/29/2024 05/30/2024, 025 Diabetes: Hemoglobin A1C 11/29/2024 025, 05/02/2023, 03/22/2023, Additional history exists SDOH Screening 05/22/2025 05/22/2024 Alcohol/Substance Use Screening 05/30/2025 05/30/2024 Disability Screening 05/30/2025 05/30/2024 Lipid Panel 07/20/2025 07/20/2024, 03/02/2023, 04/07/2020 Tobacco Screening 01/07/2026 01/07/2025 Eye Exam 12/20/2026 12/20/2024, 08/23, 09/20/2024, Additional history exists DTaP/Tdap/Td Vaccines (2 [...] on patient's age to complete this topic Goals Goal Patient Goal Type Associated Problems Recent Progress Patient-Stated? Author Help patients manage their type 2 diabetes Care Plan Help patients manage their type 2 diabetes No Mayur, Kandi, OD Weekly blood pressure task Care Plan Weekly blood pressure task No Mayur, Kandi, OD Help patients manage their type 2 diabetes Care Plan Help patients manage their type 2 diabetes No Mayur, Kandi, OD Patient has chronic kidney disease Care Plan Patient has chronic kidney disease No Mayur, Kandi, OD Weekly blood pressure task Care Plan Weekly blood pressure task No Mayur, Kandi, OD Patient has chronic kidney disease Care Plan Patient has chronic kidney disease No Mayur, Kandi, OD Weekly blood pressure task Care Plan Weekly blood pressure task No Mayur, Kandi, OD Weekly blood pressure task Care Plan Weekly blood pressure task No Mayur, Kandi, OD Patient has chronic kidney disease Care Plan Patient has chronic kidney disease No Mayur, Kandi, OD Patient has chronic kidney disease Care Plan Patient has chronic kidney disease No Mayur, Kandi, OD Procedures Procedure Name Priority Date/Time Associated Diagnosis Comments AUTOMATED VISUAL FIELD, EXTENDED - OU - BOTH EYES Routine 12/20/2024 1:00 PM EDT Peripheral visual field defect, left CT TEMPORAL BONE WO CONTRAST Urgent 11/24/2024 7:24 AM EDT Chronic suppurative otitis media of left ear, unspecified otitis media location LIPID PANEL, STANDARD Routine 07/20/2024 11:33 AM EDT Type 2 diabetes mellitus without complication, without long-term current use of insulin ([facility]) POCT GLYCATED HEMOGLOBIN, TOTAL Routine 05/30/2024 10:31 AM EDT Type 2 diabetes mellitus without complication, without long-term current use of insulin ([facility]) ALBUMIN, RANDOM URINE W/CREATININE Routine 05/02/2023 11:08 AM EDT Type 2 diabetes mellitus without complication, without long-term current use of insulin ([facility]) from Last 3 Months or Most Recently Relevant to Health Maintenance Results * Automated Visual Field, Extended - OU - Both Eyes (12/20/2024 1:00 PM EDT) Narrative Mayur, Kandi, OD - 01/07/2025 2:41 PM EST VISUAL FIELD INTERPRETATION Visual Field Interpretation Test Details: Octopus 32P Pulsar / 200/ TOP Reliability Indices: False positive errors OD: 1/7 OS: 0/7 False negative errors OD: 1/8 OS: 0/8 Statistical Indices: MS [src]: OD: 16.2 OS: 16.4 MD [< 2.0 src]: OD: 5.7 OS: 5.4 sLV [< 2.5 src]: OD: 3.6 OS: 3.4 Impression: Reason for testing: Field defect on confrontation loyola in the left eye at 08/2024 exam Test Reliability: Borderline reliability. Patient fell asleep during testing more than once. Impression: OD: Significant superonasal field defect, respects the vertical midline, but not the horizontal midline. Central vision clear. 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 Nonspecific defects in the left eye. The patient was educated repeat testing is necessary to determine whether defects are truly present. Will have him return in 3-4 months for a repeat visual field exam. us Kandi Merchant OD OPHTH VISUAL FIELD Final Resu lt * CT TEMPORAL BONE WO CONTRAST (11/24/2024 7:24 AM EDT) Anatomical Region Laterality Modality Body, Abdomen Computed Tomogra phy 11/24/2024 7:24 AM EDT Narrative 11/26/2024 8:37 AM EDT [place] [address] [address] Scan Report Signed Patient: Zack Hendrickson MR#: [id number] : 1985 Acct:[id number] Age/Sex: 39 / M ADM Date: 11/24/24 Loc: HO.CT Attending Dr: Ciera Adams EDUCATION RN Ordering Physician: Ciera Adams Date of Service: 11/24/24 Procedure(s): CT mastoid Accession Number(s): [id number] cc: Physician,Unknown ; Ciera Adams [facility] Report Number: [id number]: Total DLP = 205.00 mGy-cm Reason for Exam: Concern for mastoiditis CT TEMPORAL BONES WITHOUT CONTRAST TECHNIQUE: CT scan of the temporal bones was performed without intravenous contrast. Coronal and sagittal reformations were generated. COMPARISON: None available. Correlation made with CT head 09/08/2019. FINDINGS: LEFT PETROUS TEMPORAL BONE: On the left, the external auditory canal is intact and normal in size. The tympanic membrane is mildly thickened and mildly retracted. The scutum is mildly eroded. There is abnormal soft tissue opacification in Prussak's space, and throughout the epitympanum. The hypotympanum and mesotympanum are normally aerated. The ossicles demonstrate a somewhat diminutive appearance and associated osteopenia of the incus. The malleus and stapes appear intact. The mastoid antrum is opacified, as are the mastoid air cells. There is bony sclerosis of the mastoid suggesting chronicity. No definite erosions of the mastoid are noted. The tegmen tympani is intact. The tegmen mastoideum is intact. The otic capsule is normally mineralized. The middle ear structures are normally formed. The cochlea has an appropriate number of turns. The semicircular canals are normally covered by bone. There is no dehiscence. The jugular bulb is normal in position and covered by bone. The carotid canal is covered by bone. RIGHT PETROUS TEMPORAL BONE: On the right, the external auditory canal is intact and normal in size. The tympanic membrane is not retracted nor thickened. The scutum is not eroded. Prussak's space is normal. The middle ear canal is normally aerated. The mastoids and mastoid antrum are normally aerated. The otic capsule is normally mineralized. The middle ear structures are normally formed. The oval and round window have a normal appearance. The cochlea has an appropriate number of turns. The semicircular canals are normally covered by bone. There is no dehiscence. The tegmen tympani and tegmen mastoideum are intact. The jugular bulb is normal in position and covered by bone. The carotid canal is covered by bone. PARANASAL SINUSES: Normally pneumatized. TMJ's: Normal. IMAGED BRAIN: No mass effect or edema identified. Posterior fossa structures appear normal. CT/CT mastoid IMPRESSION: 1. Abnormal soft tissue opacity throughout the LEFT mastoid air cells, mastoid antrum, and throughout the epitympanum, with involvement of Prussak's space. There is bony sclerosis of the LEFT mastoid air cells without erosions, suggesting chronic mastoiditis. There is blunting of the LEFT scutum. 2. Mild thickening and retraction of the LEFT tympanic membrane. 3. Diminutive appearance of the LEFT incus, suggesting underlying erosions. 4. 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 Compared with the CT head of 2019, there appears to be no significant interval change. 5. The RIGHT petrous temporal bone appears normal. Electronically signed by: Enio Burch MD 11/26/2024 08:34 AM EDT Dictated By: Enio Burch MD Signed By: <Electronically signed by Enio Burch MD in [place]> 11/26/24 0834 DD/ 0724 TD/TT: 11/24/2439 Principal Trainer: Procedure Note Donotuseinterpreter, Image - 11/26/[address] [address] [address] Scan Report Signed Patient: Josefina Hendrickson#: [id number] : 1985Acct:[id number] Age/Sex: 39 / MADM Date: 11/24/24 Loc: HO.CT Attending Dr: Ciera Adams [facility] Ordering Physician: Ciera Adams Date of Service: 11/24/24 Procedure(s): CT mastoid Accession Number(s): [id number] cc: Physician,Unknown ; Ciera Adasm [facility] Report Number: [id number]: Total DLP = 205.00 mGy-cm Reason for Exam: Concern for mastoiditis CT TEMPORAL BONES WITHOUT CONTRAST TECHNIQUE: CT scan of the temporal bones was performed without intravenous contrast. Coronal and sagittal reformations were generated. COMPARISON: None available. Correlation made with CT head 09/08/2019. FINDINGS: LEFT PETROUS TEMPORAL BONE: On the left, the external auditory canal is intact and normal in size. The tympanic membrane is mildly thickened and mildly retracted. The scutum is mildly eroded. There is abnormal soft tissue opacification in Prussak's space, and throughout the epitympanum. The hypotympanum and mesotympanum are normally aerated. The ossicles demonstrate a somewhat diminutive appearance and associated osteopenia of the incus. The malleus and stapes appear intact. The mastoid antrum is opacified, as are the mastoid air cells. There is bony sclerosis of the mastoid suggesting chronicity. No definite erosions of the mastoid are noted. The tegmen tympani is intact. The tegmen mastoideum is intact. The otic capsule is normally mineralized. The middle ear structures are normally formed. The cochlea has an appropriate number of turns. The semicircular canals are normally covered by bone. There is no dehiscence. The jugular bulb is normal in position and covered by bone. The carotid canal is covered by bone. RIGHT PETROUS TEMPORAL BONE: On the right, the external auditory canal is intact and normal in size. The tympanic membrane is not retracted nor thickened. The scutum is not eroded. Prussak's space is normal. The middle ear canal is normally aerated. The mastoids and mastoid antrum are normally aerated. The otic capsule is normally mineralized. The middle ear structures are normally formed. The oval and round window have a normal appearance. The cochlea has an appropriate number of turns. The semicircular canals are normally covered by bone. There is no dehiscence. The tegmen tympani and tegmen mastoideum are intact. The jugular bulb is normal in position and covered by bone. The carotid canal is covered by bone. PARANASAL SINUSES: Normally pneumatized. TMJ's: Normal. IMAGED BRAIN: No mass effect or edema identified. Posterior fossa structures appear normal. CT/CT mastoid IMPRESSION: 1. Abnormal soft tissue opacity throughout the LEFT mastoid air cells, mastoid antrum, and throughout the epitympanum, with involvement of Prussak's space. There is bony sclerosis of the LEFT mastoid air cells without erosions, suggesting chronic mastoiditis. There is blunting of the LEFT scutum. 2. Mild thickening and retraction of the LEFT tympanic membrane. 3. Diminutive appearance of the LEFT incus, suggesting underlying erosions. 4. 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 Compared with the CT head of 2019, there appears to be no significant interval change. 5. The RIGHT petrous temporal bone appears normal. Electronically signed by: Enio Burch MD 11/26/2024 08:34 AM EDT Dictated By: Enio Burch MD Signed By: <Electronically signed by Enio Burch MD in [place]> 11/26/24 0834 DD/ 0724 TD/TT: 11/24/24 0739 Principal Trainer: [facility] IMG CT PROCEDURES Final Resul t * (ABNORMAL) Lipid Panel, Standard (07/20/2024 11:33 AM EDT) Triglycerides 106 <150 mg/dL [facility] Comment:Desirable Triglyceri de: less than 150 mg/dLBorderline High Triglyceride 150-199 mg/dLHigh Triglyceride: 200-499 mg/dLVery High Triglyceride: greater than or equal to 5OO mg/dL Cholesterol 166 <200 mg/dL [facility] Comment:Desirable Cholestero l: less than 200 mg/dLBorderline High Cholesterol: 200-239 mg/dLHigh Cholesterol: greater than 239 mg/dL LDL Cholesterol Calculated 114(H) <100 mg/dL [facility] Comment:Desirable LDL: less than 100 mg/dLNear Optimal/Above Optimal LDL: 110- 129 mg/dLBorderline High LDL: 130-159 mg/dLHigh LDL: 160-189 mg/dLVery High LDL: greater than or equal to 190 mg/dL HDL Cholesterol 31(L) >40 mg/dL [facility] Comment:Desirable HDL: great er than 40 mg/dL Note: This HDL assay may give artificially low results in patients with liver disease. Blood Venous blood specimen / Unknown 07/20/2024 11:33 AM EDT 07/20/2024 1:18 PM EDT [facility] LAB BLOOD ORDERABLES Final Re sult [facility] [address] [place] [phone] * POCT HGB A1C (05/30/2024 10:31 AM EDT) Hemoglobin A1C 4.7 4.0 - 6.0 % QC Media Lot # [id number] Lot# Expiration Date ,693,[id number] Blood 05/30/2024 10:3 1 AM EDT [facility] POINT OF CARE TEST ENTER/EDIT ORDERABLES Final Result * Albumin, Random Urine W/Creatinine (05/02/2023 11:08 AM EDT) Creatinine, Urine 201.34 mg/dL [facility] Microalbumin Urine 41.0 mg/L [facility] Microalbum Creatinine Ratio Ur 20.3 <30 ug/mg cr [facility] Comment:Albumin/Creatinine R atio Reference Ranges: Normal: < 30 ug/mg creatinine Microalbuminuria: 30 - 300 ug/mg creatinineClinical Albuminuria: > 300 ug/mg creatinine Urine 05/02/2023 11:0 8 AM EDT 05/02/2023 1:14 PM EDT [facility] EDUCATION RN LAB URINE ORDERABLES Final Re sult [facility] [address] [place] [address] [phone] from Last 3 Months or Most Recently Relevant to Health Maintenance Additional Health Concerns Active Problems Noted Date Diagnosed Date Help patients manage their type 2 diabetes 01/07 Weekly blood pressure task 01/07/2025 Help patients manage their type 2 diabetes 01/07 Patient has chronic kidney disease 01/07/2025 Weekly blood pressure task 01/07/2025 Patient has chronic kidney disease 01/07/2025 Weekly blood pressure task 01/11/2025 Weekly blood pressure task 01/11/2025 Patient has chronic kidney disease 01/11/2025 Patient has chronic kidney disease 01/11/2025 Insurance [facility] C3 Care Teams Child Psychiatrist Relationship Specialty Start Date End Date Ciera Adams FNP [address] [place] [id number] PCP - General Family Medicine 10/16/21
--- OUTSIDE RECORDS SUMMARY | 2025-02-13 21:31 | XMS_ITS | Clinical Summary ---
Author Organization [facility] Address [address] [place] [address] Phone Care Team Providers Care Power Line Installer And Repairer Name Role Phone Juan Nix MD Primary Care Provider Allergies No known active allergies Medications blood pressure monitor (Blood Pressure Kit) kit 1 Kit. 05/22/19 20 Active blood pressure monitor (Blood Pressure Kit) kit Use as directed 0 23 Active carvediloL (COREG) 6.25 mg tablet [...] 12/31/19 24 Active blood pressure test kit-large kitIndications:Cl ass 2 severe obesity due to excess calories with serious comorbidity and body mass index (BMI) of 38.0 to 38.9 in adult,Hypertensio n, unspecified type 2 (two) times a day. Patient needs to monitor blood pressure after recent bariatric surgery concern for hypotension losartan and amlodipine are on hold. 1 kit 01/02/20 24 Active pantoprazole (PROTONIX) 40 mg EC tablet TAKE 1 TABLET BY MOUTH EVERY DAY BEFORE BREAKFAST DO NOT CRUSH, CHEW OR SPLIT 90 tablet 06/26/19 25 Active ergocalciferol (VITAMIN D-2) 1,250 mcg (50,000 unit) capsuleIndication s:Vitamin D deficiency Take 1 capsule (50,000 Units total) by mouth 1 (one) time per week for 12 doses. 12 each 12/01/19 25 025 Active zinc gluconate 50 mg tabletIndications :Postoperative malabsorption Take 1 tablet (50 mg total) by mouth 1 (one) time each day. 30 tablet 12/13/19 25 026 Active pyridoxine (Vitamin B-6) 50 mg tabletIndications :Postoperative malabsorption Take 1 tablet (50 mg total) by mouth 1 (one) time each day. 30 each 5 12/13/19 25 026 Active tirzepatide, weight loss, (Zepbound) 15 mg/0.5 mL injectionIndicati ons:Class 1 obesity due to excess calories with body mass index (BMI) of 31.0 to 31.9 in adult, unspecified whether serious comorbidity present Inject 0.5 mL (15 mg total) under the skin every 7 (seven) days. 2 mL 5 01/31/20 25 Active tirzepatide, weight loss, (Zepbound) 15 mg/0.5 mL injectionIndicati ons:Class 1 obesity due to excess calories with body mass index (BMI) of 31.0 to 31.9 in adult, unspecified whether serious comorbidity present Inject 0.5 mL (15 mg total) under the skin every 7 (seven) days. 2 mL 5 01/05/20 25 025 Discontin ued(Dupli benjamín order) Active Problems Problem Noted Date Diagnosed Date [...] Encounters Date Type Department Care Team Description 01/03/2025 Telephone Bariatric Surgery [address] [phone] Alyssa Carty MD 01/03/2025 Telephone Bariatric Surgery - [address] [phone] Alyssa Carty MD 12/26/2024 Telephone Bariatric Surgery - [address] [phone] Alyssa Carty MD 11/30/2024 Results Follow-Up Bariatric Surgery [address] [phone] Alyssa Carty MD 11/29/2024 8:30 AM EDT Office Visit Bariatric Surgery [address] [phone] Alyssa Carty MD Postoperative intestinal malabsorption (Primary Dx); Excess weight; Class 1 obesity due to excess calories with body mass index (BMI) of 31.0 to 31.9 in adult, unspecified whether serious comorbidity present from Last 3 Months Surgical History Surgery [...] Sign Reading Time Taken Comments Blood Pressure 147/89 11/29/2024 9:00 AM EDT Pulse 54 11/29/2024 9:00 AM EDT Temperature 36.6 C (97.8 F) 11/29/2024 9:00 AM EDT Respiratory Rate 17 12/31/2023 7:46 AM EST Oxygen Saturation 98% 12/31/2023 7:46 AM EST Inhaled Oxygen Concentration - - Weight 80.7 kg (178 lb) 11/29/2024 9:00 AM EDT Height 177.8 cm (5' 10 ) 11/29/2024 9:00 AM EDT Body Mass Index 25.54 11/29/2024 9:00 AM EDT Plan of Treatment Upcoming Encounters Date Type Department Care Team (Late st Contact Info) Description 06/04/2025 10:15 AM EDT Office Visit Bariatric Surgery [address] [phone] Alyssa Carty MD [address] [place] [phone] Health Maintenance Due Date Last Done Comments Drug Screen 1985 Non-Opioid Controlled Substance Agreement 1985 Diabetes: Annual Foot Exam 09/06/1995 Hepatitis B [...] Procedure Name Priority Date/Time Associated Diagnosis Comments ALBUMIN Routine 11/29/2024 9:25 AM EDT Postoperative intestinal malabsorption CALCIUM Routine 11/29/2024 9:25 AM EDT Postoperative intestinal malabsorption FOLATE Routine 11/29/2024 9:25 AM EDT Postoperative intestinal malabsorption IRON AND TIBC Routine 11/29/2024 9:25 AM EDT Postoperative intestinal malabsorption SELENIUM SERUM Routine 11/29/2024 9:25 AM EDT Postoperative intestinal malabsorption VITAMIN A Routine 11/29/2024 9:25 AM EDT Postoperative intestinal malabsorption VITAMIN B1 Routine 11/29/2024 9:25 AM EDT Postoperative intestinal malabsorption VITAMIN B12 Routine 11/29/2024 9:25 AM EDT Postoperative intestinal malabsorption VITAMIN B6 Routine 11/29/2024 9:25 AM EDT Postoperative intestinal malabsorption VITAMIN D 25 HYDROXY Routine 11/29/2024 9:25 AM EDT Postoperative intestinal malabsorption ZINC Routine 11/29/2024 9:25 AM EDT Postoperative intestinal malabsorption BASIC METABOLIC PANEL Routine 12/31/2023 6:31 AM EST LIPID PANEL Routine 05/02/2023 HEMOGLOBIN A1C Routine 03/22/2023 HM URINE ALBUMIN CREATININE RATIO Routine 04/07/2020 from Last 3 Months or Most Recently Relevant to Health Maintenance Results * (ABNORMAL) Iron and TIBC (11/29/2024 9:25 AM EDT) Iron 68 50 - 160 mcg/dL LAB CHEMISTRY METHOD 11/29/2024 10:48 AM EDT [facility] TIBC 193(L) 250 - 450 mcg/dL LAB CHEMISTRY METHOD 11/29/2024 10:48 AM EDT [facility] Iron Saturation 35 20 - 50 % LAB CHEMISTRY METHOD 11/29/2024 10:48 AM EDT [facility] Blood Venous blood specimen / Unknown Venipuncture / Unknown 11/29/2024 9:25 AM EDT 11/29/2024 9:25 AM EDT us Alyssa Carty MD LAB BLOOD ORDERABLES Final R esult [facility] [address] [place] [address], [place] [phone] * (ABNORMAL) Zinc (11/29/2024 9:25 AM EDT) Zinc 48(L) 60 - 130 ug/dL 12/03/2024 1:23 PM EDT [facility] Comment: Elevated results may be due to sample collected in a non-certified trace element-free tube. This test was developed and the performance characteristics determined by [facility]. It has not been cleared or approved by the FDA. The laboratory is regulated under CLIA as qualified to perform high-complexity testing. This test is used for patient testing purposes. It should not be regarded as investigational or for research. Test performed at [facility], [address], [place] [address] Sariah Marrero MD, PhD - 6Th Grade Teacher Blood Venous blood specimen / Unknown Venipuncture / Unknown 11/29/2024 9:25 AM EDT 11/29/2024 9:25 AM EDT Alyssa Carty MD LAB BLOOD ORDERABLES Final R esult Performing Organization Address City/[facility]/ZIP Co de Phone Number [facility] [address] [place] [address] * (ABNORMAL) Vitamin A (11/29/2024 9:25 AM EDT) Vitamin A 26(L) 38 - 106 ug/dL 12/04/2024 6:47 AM EDT [facility] Comment: This test was developed and the performance characteristics determined by [facility]. It has not been cleared or approved by the FDA. The laboratory is regulated under CLIA as qualified to perform high-complexity testing. This test is used for patient testing purposes. It should not be regarded as investigational or for research. Test performed at [facility], [address] , [place] [address] Sariah Marrero MD, PhD - 6Th Grade Teacher Blood Venous blood specimen / Unknown Venipuncture / Unknown 11/29/2024 9:25 AM EDT 11/29/2024 9:25 AM EDT Alyssa Carty MD LAB BLOOD ORDERABLES Final R esult Performing Organization Address City/[facility]/ZIP Co de Phone Number [facility] [address] [place] [address] * Selenium serum (11/29/2024 9:25 AM EDT) Selenium 120 63 - 160 mcg/L 12/03/2024 2:50 PM EDT [facility] Comment: This test was developed and its analytical performance characteristics have been determined by [facility] [place], [place]. It has not been cleared or approved by the U.S. Food and Drug Administration. This assay has been validated pursuant to the CLIA regulations and is used for clinical purposes. Test Performed by [facility], [facility], [address] [place], [place] Terrell Dee M.D., Ph.D., Director of Laboratories , CLIA [id number] Blood Venous blood specimen / Unknown Venipuncture / Unknown 11/29/2024 9:25 AM EDT 11/29/2024 9:25 AM EDT Alyssa Carty MD LAB BLOOD ORDERABLES Final R esult [facility] [address] [place] [address] * (ABNORMAL) Vitamin D 25 hydroxy (11/29/2024 9:25 AM EDT) Pathologist [facility] [place] Vit D, 25-Hydroxy 6.7(L) 30.0 - 80.0 ng/mL LAB CHEMISTRY METHOD 11/29/2024 11:43 AM EDT [facility] Blood Venous blood specimen / Unknown Venipuncture / Unknown 11/29/2024 9:25 AM EDT 11/29/2024 9:25 AM EDT Alyssa Carty MD LAB BLOOD ORDERABLES Final R esult [facility] [address] [place] [address], [place] [phone] * Vitamin B1 (11/29/2024 9:25 AM EDT) [facility] Vitamin B1 Whole Blood 58 38 - 122 ug/L 12/04/2024 7:38 AM EDT [facility] Comment: This test was developed and the performance characteristics determined by [facility]. It has not been cleared or approved by the FDA. The laboratory is regulated under CLIA as qualified to perform high-complexity testing. This test is used for patient testing purposes. It should not be regarded as investigational or for research. Test performed at [facility], [address] [place] [address] Sariah Marrero MD, PhD - 6Th Grade Teacher Blood Venous blood specimen / Unknown Venipuncture / Unknown 11/29/2024 9:25 AM EDT 11/29/2024 9:25 AM EDT us Alyssa Carty MD LAB BLOOD ORDERABLES Final R esult Performing Organization Address City/[facility]/ZIP Co de Phone Number [facility] [address] [place] [address] * (ABNORMAL) Vitamin B6 (11/29/2024 9:25 AM EDT) [facility] Vitamin B6 (Pyridoxine) Level 4(L) 5 - 50 ug/L 12/04/2024 2:00 PM EDT [facility] Comment: This test was developed and the performance characteristics determined by [facility]. It has not been cleared or approved by the FDA. The laboratory is regulated under CLIA as qualified to perform high-complexity testing. This test is used for patient testing purposes. It should not be regarded as investigational or for research. Test performed at [facility], [address] [place] [address] Sariah Marrero MD, PhD - 6Th Grade Teacher Blood Venous blood specimen / Unknown Venipuncture / Unknown 11/29/2024 9:25 AM EDT 11/29/2024 9:25 AM EDT us Alyssa Carty MD LAB BLOOD ORDERABLES Final R esult Performing Organization Address City/[facility]/ZIP Co de Phone Number [facility] [address] [place] [address] * Folate (11/29/2024 9:25 AM EDT) [facility] Folate 15.9 2.8 - 17.0 ng/ml LAB CHEMISTRY METHOD 11/29/2024 11:11 AM EDT [facility] Blood Venous blood specimen / Unknown Venipuncture / Unknown 11/29/2024 9:25 AM EDT 11/29/2024 9:25 AM EDT us Alyssa Carty MD LAB BLOOD ORDERABLES Final R esult [facility] [address] [place] [address], [place] [phone] * Vitamin B12 (11/29/2024 9:25 AM EDT) [facility] Vitamin B-12 357 250 - 900 pcg/mL LAB CHEMISTRY METHOD 11/29/2024 11:11 AM EDT [facility] Blood Venous blood specimen / Unknown Venipuncture / Unknown 11/29/2024 9:25 AM EDT 11/29/2024 9:25 AM EDT us Alyssa Carty MD LAB BLOOD ORDERABLES Final R esult Performing Organization Address City/[facility]/ZIP Co de Phone Number [facility] [address] [place] [address], [place] [phone] * Calcium (11/29/2024 9:25 AM EDT) Pathologist [facility] [place] Calcium 8.7 8.5 - 10.5 mg/dL LAB CHEMISTRY METHOD 11/29/2024 10:48 AM EDT [facility] Blood Venous blood specimen / Unknown Venipuncture / Unknown 11/29/2024 9:25 AM EDT 11/29/2024 9:25 AM EDT us Alyssa Carty MD LAB BLOOD ORDERABLES Final R esult [facility] [address] [place] [address], [place] [phone] * Albumin (11/29/2024 9:25 AM EDT) Pathologist [facility] [place] Albumin 3.6 3.2 - 5.0 g/dL LAB CHEMISTRY METHOD 11/29/2024 10:48 AM EDT [facility] Blood Venous blood specimen / Unknown Venipuncture / Unknown 11/29/2024 9:25 AM EDT 11/29/2024 9:25 AM EDT us Alyssa Carty MD LAB BLOOD ORDERABLES Final R esult [facility] [address] [place] [address], [place] [phone] * (ABNORMAL) Basic metabolic panel (12/31/2023 6:31 AM EST) Pathologist [facility] [place] Sodium 140 133 - 145 mmol/L LAB CHEMISTRY METHOD 12/31/2023 8:19 AM [facility] Potassium 3.7 3.5 - 5.5 mmol/L LAB CHEMISTRY METHOD 12/31/2023 8:19 AM [facility] Chloride 107 96 - 110 mmol/L LAB CHEMISTRY METHOD 12/31/2023 8:19 AM [facility] CO2 26 21 - 32 mmol/L LAB CHEMISTRY METHOD 12/31/2023 8:19 AM [facility] Anion Gap 7 3 - 11 LAB CHEMISTRY METHOD 12/31/2023 8:19 AM [facility] Glucose 105(H) 70 - 100 mg/dL LAB CHEMISTRY METHOD 12/31/2023 8:19 AM [facility] BUN 16 5 - 25 mg/dL LAB CHEMISTRY METHOD 12/31/2023 8:19 AM [facility] Creatinine 1.05 0.70 - 1.30 mg/dL LAB CHEMISTRY METHOD 12/31/2023 8:19 AM [facility] eGFR 93 >=60 mL/min/1. 73m2 LAB CHEMISTRY METHOD 12/31/2023 8:19 AM EST [facility] Comment:Calculation based on the Chronic Kidney Disease Epidemiology Collaboration (CKD-EPI) equation refit without adjustment for race. BUN/Creatinine Ratio 15.2 LAB CHEMISTRY METHOD 12/31/2023 8:19 AM EST [facility] Calcium 8.2(L) 8.5 - 10.5 mg/dL LAB CHEMISTRY METHOD 12/31/2023 8:19 AM EST [facility] Blood Venous blood specimen / Unknown Venipuncture / Unknown 12/31/2023 6:31 AM EST 12/31/2023 7:19 AM EST Genna VALDEZ LAB BLOOD ORDERABLES Final Resul t [facility] [address] [place] [address], * Lipid panel (05/02/2023) LDL/HDL Ratio 0 [...] * HM Urine Albumin Creatinine Ratio (04/07/2020) Urine Albumin Creatinine Ratio abstracted Historical Provider [...] currently active code status orders. Care Teams Power Line Installer And Repairer Relationship Specialty Start Date End Date Juan Nix MD [address] [place] [address] PCP - General Internal Medicine 07/16/15
--- OUTSIDE RECORDS SUMMARY | 2025-02-13 21:31 | XMS_ITS | Encounter Summary ---
Author Organization [employer] Address [address] [place] [address] Care Team Providers Care Fire Safety Inspector Name Role Phone Angie Ciera MOTHER TESTER Primary Care Provider Encounter Details Date Type Department Care Team ([facility] st Contact Info) Description 03/23/2023 Telephone [facility] [address], [place] [phone] Ashanti Jamil LPN Social History Tobacco Use [...] Description 03/25/2025 11:30 AM EST Office Visit [facility] OPTOMETRY [address] [place] [address] Kandi Merchant, OD [address] [place] [address] documented as of this encounter Visit Diagnoses Not on filedocumented in this encounter Additional Health Concerns Assessment Noted Time PHQ-9 Depression Total Score: 0 03/29/19 23 2:08 PM EST documented as of this encounter Care Teams Fire Safety Inspector Relationship Specialty Start Date End Date Ciera Adams FNP [address] [place] [address] PCP - General Family Medicine 10/16/21 documented as of this encounter
[2025-02-13 22:03] VITALS: RESP 18
[2025-02-13] MEDS: Lactated Ringers 1,000 ML 999 ML IV (22:03)
[2025-02-13 22:04] LABS: Hematocrit 37.9 % (42.0-52.0); Hemoglobin 13.2 g/dl (14.0-18.0); Imm Gran Abs Auto 0.01 X10*3/uL (0.00-0.03); Imm Gran Pct Auto 0.2 % (0.0-0.4); Lymphocytes Absolute Auto 1.4 X10*3/uL (1.2-4.9); Mean Corpuscular HGB Conc 34.8 g/dl (31.0-36.0); Mean Corpuscular Hemoglobin 29.3 pg (27.0-33.0); Mean Corpuscular Volume 84.0 fL (80.0-98.0); NRBC Abs Auto 0.000 X10*3/uL (0.0-0.012); NRBC Pct Auto 0.0 /100WBC (0.0-0.2); Platelet Count 150 X10*3/uL (160-400); Red Blood Count 4.51 X10*6/uL (4.60-5.80); White Blood Count 6.1 X10*3/uL (4.8-10.8)
[2025-02-13 22:07] LABS: MANUAL DIFF FLAG NO
--- NOTE | 2025-02-13 22:13 | ED.GENADULT ---
HPI - General Adult General Chief complaint: Abdominal Pain Stated complaint: ABD PAIN Time Seen by Provider: 02/13/25 21:25 Source: patient, RN notes reviewed, old records reviewed and violent crimes detective Mode of arrival: ambulatory Limitations: language barrier History of Present Illness ED Provider: Deandre HPI narrative: 39-year-old male past medical history significant for morbid obesity status post sleeve gastrectomy, diabetes, hyperlipidemia presents for evaluation of upper abdominal pain. the patient reports that his symptoms started about an hour prior to arrival. He was eating popcorn with the symptoms started. He reports severe upper abdominal pain described as squeezing in nature. Denies any nausea, vomiting or diarrhea. Denies any fevers, chills. Denies any chest pain, cough, shortness of breath Related Data Home Medications ?Medication ?Instructions ?Recorded ?Confirmed amlodipine 5 mg tablet 5 mg PO BID 05/15/20 08/06/24 carvedilol 12.5 mg tablet 12.5 mg PO BID 05/15/20 08/06/24 hydralazine 50 mg tablet 50 mg PO TID 05/15/20 08/06/24 trazodone 100 mg tablet 100 mg PO BEDTIME PRN Sleep 05/15/20 08/06/24 euevnzty-grlccfch-[id number] 45 mg-folic 1 cap PO DAILY 07/28/20 08/06/24 acid 800 mcg-vit K 120 mcg capsule (Bariatric Multivitamins) Previous Rx's ?Medication ?Instructions ?Recorded minoxidil 2.5 mg tablet 5 mg (2 x 2.5 mg) PO BID #30 tabs 04/30/20 morphine 15 mg immediate release 15 mg PO Q6H PRN pain #10 tabs 04/02/24 tablet ondansetron 4 mg disintegrating 4 mg PO Q6H PRN nausea and 04/02/24 tablet vomiting #10 tabs cefuroxime axetil 500 mg tablet 500 mg PO BID 7 days #14 tabs 07/20/24 potassium chloride 10 mEq 10 meq PO DAILY #30 tabs 07/20/24 tablet,extended release Allergies Allergy/AdvReac Type Severity Reaction Status Date / Time No Known Allergies (No Known Allergy Verified 02/13/25 21:07 Allergies*) Review of Systems Constitutional: Constitutional: Denies body ache(s), Denies chills, Denies fever(s) and Denies headache(s) Eyes: Eyes: Denies blurry vision ENT: Denies vertigo, Denies dizziness and Denies headache(s) Cardiovascular: Cardiovascular: Reports chest pain and Denies dyspnea on exertion Respiratory: Respiratory: Denies cough and Denies dyspnea on exertion Gastrointestinal: Gastrointestinal: Reports abdominal pain, Denies nausea and Denies vomiting Musculoskeletal: Musculoskeletal: Denies back pain Integumentary/Breasts: Skin/Breast: Denies rash Neurologic: Denies vertigo, Denies dizziness and Denies headache(s) Psychiatric: Psychiatric: Denies anxiety PMFSH Past Medical History Medical History Obesity (BMI 30-39.9) Intestinal malabsorption following gastrectomy Low serum potassium Obesity BMI 39.0-39.9,adult COVID-19 vaccine series completed Vitamin D deficiency Vitamin B1 deficiency Vitamin A deficiency Back pain Anxiety Depression Arthritis Pre-diabetes BMI 45.0-49.9, adult Shortness of breath Preoperative examination Sleep apnea HTN (hypertension) Surgical History S/P laparoscopic sleeve gastrectomy Hx of oral surgery No pertinent past surgical history Family History Family History Father Hypertension Diabetes mellitus Mother Hypertension Brother Hypertension Depressed Mental problems Son No problems noted. Social History Social History Household Members: Significant Other Housing: Apartment Are you a primary pharmacist critical care to a significant other at home: No Do you presently have visiting nurse or other home services: No Alcohol intake: never Patient Tobacco Use Status: Never used Tobacco Smoked in Last 30 Days: No Use of substances other than those prescribed or required for medical reasons: No Advance Directives: Yes Advance Directives on File: Yes Advance Directives Date on File: 07/18/20 service: No Current occupational status: unemployed Physical Exam ED Vital Signs: Vital Signs - 24 hr 02/13/25 21:04 02/13/25 22:03 02/13/25 22:35 Temperature 98.2 F Pulse Rate 61 Respiratory Rate 15 18 18 Blood Pressure 186/119 H Pulse Oximetry 94 Oxygen Delivery Method Room Air 02/13/25 23:53 Temperature 97.9 F Pulse Rate 53 Respiratory Rate 16 Blood Pressure 145/88 H Pulse Oximetry 98 Oxygen Delivery Method Room Air BMI result Body Mass Index 23.2 Const General: healthy appearing, no acute distress, alert and awake Nutritional Appearance: well nourished Orientation/consciousness: patient oriented x3 HENMT Head: Yes normocephalic and Yes atraumatic Throat: Yes posterior oropharynx normal Eyes Eyelids: Yes eyelids normal Conjunctivae: conjunctivae normal Sclerae: sclerae normal Corneas: corneas normal Pupils: Equal, round and reactive pupils present EOM: EOMs intact bilaterally Neck Neck: Yes full ROM Resp Effort & Inspection: normal respiratory effort, able to speak in complete sentences and not labored Cardio Rate: regular rate Rhythm: regular rhythm GI Inspection: No distended Palpation (GI): Soft to palpation, not firm, Tenderness to palpation present (GI) in the epigastrum and in the LUQ; not in the RUQ, Guarding due to palpation present (GI) and not rigid Skin General skin exam: no rashes or lesions noted and elasticity normal Neuro General: patient oriented x3 Cranial nerves: Yes Equal, round and reactive pupils present and Yes Bilaterally intact EOM present Cognition (Neuro): normal cognition Extrem Other: Moving all extremities well without any obvious deformities Course Reevaluation(s) Reevaluation #1: the patient's labs are significant for hypokalemia at 3.0, he appears drive his sodium being elevated to 148. This is likely due to poor p.o. intake as he denies nausea and vomiting. The patient's CT scan shows a possible internal hernia and questionable partial small-bowel obstruction. Given that his most recent bariatric surgery was done at [facility] by Dr. Carty, we will attempt to discuss with the surgery team at [facility] Time: 01:04 Reevaluation #2: discussed with Dr. Carty who will like the patient transferred from ED to ED. I discussed with Dr. Cardona, ed attending we will accept transfer of care. I asked our radiology department to provide a disc for transport that can be reviewed by the accepting facility Time: 01:37 Medications Administered Discontinued Medications Generic Name Dose Route Start Last Admin Trade Name Freq PRN Reason Stop Dose Admin Lactated Ringer's 1,000 mls @ 999 mls/hr 02/13/25 22:00 02/13/25 22:03 Lr IV 02/13/25 23:00 999 mls/hr .Q1H1M RUDDY Administration Iohexol 85 ml 02/13/25 23:52 02/13/25 23:57 Iohexol 350 Mg/Ml 100 Ml Infus..Btl IV 02/13/25 23:53 85 ml ONCE ONE Administration Morphine Sulfate 4 mg 02/13/25 21:48 02/13/25 22:03 Morphine Sulfate 4 Mg/Ml Cartridge IVPUSH 02/13/25 21:49 4 mg ONCE ONE Administration Protocol Ondansetron HCl 4 mg 02/13/25 21:48 02/13/25 22:03 Ondansetron Hcl 4 Mg/2 Ml Vial IVPUSH 02/13/25 21:49 4 mg ONCE ONE Administration Potassium Chloride 40 meq 02/14/25 01:03 02/14/25 01:23 Potassium Chloride Er 20 Meq Tab.Er.Prt PO 02/14/25 01:04 40 meq ONCE ONE Administration Medical Decision Making Medical Decision Making [facility] Narrative: 39-year-old male past medical history as above presents for evaluation of abdominal pain. His symptoms started about an hour prior to arrival after eating popcorn. He is status post sleeve gastrectomy. He has no nausea vomiting or diarrhea. He is unsure if he has been passing flatus. Plan for screening labs, EKG. Given his previous abdominal surgeries, we will obtain a CT scan of the abdomen pelvis. the patient is somewhat hypertensive at 186/119 which could be due to his discomfort. Otherwise his vital signs are within normal limits, he is afebrile. We will treat his pain with morphine, Zofran and we will give him IV fluids pending his workup. Differential Diagnosis Differential Diagnoses: The differential diagnosis associated with the presentation includes Abdominal pain Pancreatitis GERD Peptic ulcer disease Cholelithiasis Perforated viscus Bowel obstruction Admission/Observation Consideration of admission/observation: Escalation of care including admission/observation considered Consult Healthcare Provider Management of the patient was discussed with: Child Care Group Leader (outside surgeon, Dr Carty) Lab Data [facility] Lab Attestation statement: I reviewed the patient's lab results. no leukocytosis. The patient has a mild anemia of unclear significance. Platelet count a 544582. His sodium in his slightly low at 146 which is likely due to dehydration. Potassium is low at 3.0 lifting to decreased oral intake in his setting a bowel obstruction. No other significant electrolyte abnormalities warranting dimension. 02/13/25 22:00 02/13/25 22:16 Labs: Lab Results 02/13/25 02/13/25 Range/Units 22:00 22:16 WBC 6.1 (4.8-10.8) X10*3/uL RBC 4.51 L (4.60-5.80) X10*6/uL Hgb 13.2 L (14.0-18.0) g/dl Hct 37.9 L (42.0-52.0) % MCV 84.0 (80.0-98.0) fL MCH 29.3 (27.0-33.0) pg MCHC 34.8 (31.0-36.0) g/dl RDW 13.5 (11.0-16.0) % Plt Count 150 L (160-400) X10*3/uL MPV 11.5 (9.4-12.4) fL Immature Gran % (Auto) 0.2 (0.0-0.4) % Neut % (Auto) 66.5 (45-73) % Lymph % (Auto) 23.5 (20-40) % [place] % (Auto) 8.1 (2-11) % Eos % (Auto) 1.2 (0-4) % Baso % (Auto) 0.5 (0-2) % Lymph # (Auto) 1.4 (1.2-4.9) X10*3/uL [place] # (Auto) 0.5 (0.1-1.2) X10*3/uL Eos # (Auto) 0.1 (0.0-0.4) X10*3/uL Baso # (Auto) 0.0 (0.0-0.2) X10*3/uL Abs Immat Gran (auto) 0.01 (0.00-0.03) X10*3/uL Absolute Neuts (auto) 4.0 (2.0-8.3) x10*3/uL Absolute Nucleated RBC 0.000 (0.0-0.012) X10*3/uL Nucleated RBC % (auto) 0.0 (0.0-0.2) /100WBC Sodium 146 H (135-145) mmol/L Potassium 3.0 L (3.3-5.1) mmol/L Chloride 113 H (96-108) mmol/L Carbon Dioxide 24 (22-29) mmol/L Anion Gap 12 (12-20) BUN 14 (9-16) mg/dL Creatinine 1.04 (0.5-1.4) mg/dL Estim Creat Clear Calc 98.4 Estimated GFR > 60 Random Glucose 60 (60-115) mg/dL Calcium 8.4 (8.4-10.2) mg/dL Total Bilirubin 0.7 (0.0-1.0) mg/dL Direct Bilirubin 0.3 (0.0-0.5) mg/dL AST 23 (5-37) U/L ALT 19 (0-40) U/L Alkaline Phosphatase 87 (39-117) U/L Total Protein 6.1 L (6.5-8.0) g/dL Albumin 3.7 (3.5-5.0) g/dL Independent Interpretation I performed an independent interpretation of an: EKG ( Sinus bradycardia rate of [address] changes.) Interpretation: The patient is on carvedilol Radiology Impression Discussion of test interpretation with radiology: I have reviewed the radiologist's reading. Radiologist Impression: Findings: No consolidation or effusion. Stones or sludge are present within the dependent portions of the gallbladder fundus. No focal hepatic lesion identified. Pancreas and spleen are within normal limits. The adrenal glands are within normal limits. Kidneys enhance symmetrically and are non hydronephrotic. Small nonobstructing calculus in the left kidney. Abnormal mesenteric configuration, with mildly dilated loop of small bowel anterior to the transverse colon measuring 3.4 cm suggesting possible internal hernia. Pelvic contents unremarkable. Appendix is not visualized. Mild intra-abdominal and pelvic free fluid. No acute fracture. IMPRESSION: Prominent gas-filled loop of small-bowel located anterior to the transverse colon, possible internal hernia and low-grade or partial bowel obstruction. Please correlate clinically. This document has been electronically signed by: Destin Tim MD, PHD on 02/14/2025 00:47:40 Prescription Management I considered prescription management with: Pain Medication Chronic Conditions Patient?s care impacted by: Diabetes and Hypertension Discharge Plan Discharge Clinical Impression: S/P laparoscopic sleeve gastrectomy, Partial small bowel obstruction Patient Disposition: [facility] Transfer Details: [facility] Prescriptions: No Action minoxidil 2.5 mg tablet 5 mg PO BID Qty: 30 0RF morphine 15 mg tablet 15 mg PO Q6H PRN (Reason: pain) Qty: 10 0RF Rx Instructions: Partial Fill upon patient request. ondansetron 4 mg tablet,disintegrating 4 mg PO Q6H PRN (Reason: nausea and vomiting) Qty: 10 0RF cefuroxime axetil 500 mg tablet 500 mg PO BID 7 Days Qty: 14 0RF potassium chloride 10 mEq tablet extended release 10 meq PO DAILY Qty: 30 0RF amlodipine 5 mg tablet 5 mg PO BID hydralazine 50 mg tablet 50 mg PO TID carvedilol 12.5 mg tablet 12.5 mg PO BID Rx Instructions: must administer with a meal/food trazodone 100 mg tablet 100 mg PO BEDTIME PRN (Reason: Sleep) Bariatric Multivitamins 45 mg iron- 800 mcg-120 mcg capsule 1 cap PO DAILY Referrals: Alyssa Carty MD [Physician, General Surgery] Ciera Adams FNP [Primary Care Provider, Medical] Print Language: Chinese
[2025-02-13 22:35] VITALS: RESP 18
[2025-02-13 22:35] LABS: Alanine Aminotransferase 19 U/L (0-40); Albumin Level 3.7 g/dL (3.5-5.0); Alkaline Phosphatase 87 U/L (39-117); Anion Gap 12 (12-20); Aspartate Amino Transferase 23 U/L (5-37); Blood Urea Nitrogen 14 mg/dL (9-16); Calcium 8.4 mg/dL (8.4-10.2); Carbon Dioxide 24 mmol/L (22-29); Chloride 113 mmol/L (96-108); Creatinine Clr Calc Pharmacy 98.4; Estimated Glomerular Filt Rate > 60; Potassium 3.0 mmol/L (3.3-5.1); Sodium 146 mmol/L (135-145); Total Protein 6.1 g/dL (6.5-8.0)
--- NOTE | 2025-02-13 23:11 | PC.NURSE ---
pt noted to be sitting upright using his cell phone in hospital stretcher, pt pending CT scan of his abd, pt arm noted to be bent, educated on the need to keep arm straight to allow IVF to infuse, approximately 500mL of LR infused w/ approximately 500mL in bag
[2025-02-13 23:53] VITALS: BP 145/88; PULSE 53; RESP 16; TEMP 36.6; O2SAT 98
[2025-02-13] MEDS: iohexoL 350 MG/ML 100 ML INFUS..BTL 85 ML IV (23:57)
[2025-02-14] MEDS: Potassium Chloride ER 20 MEQ TAB.ER.PRT 40 MEQ PO (01:23)
--- NOTE | 2025-02-14 01:39 | ECG_ITS ---
Test Reason : PAIN Blood Pressure : */* mmHG Vent. Rate : 39 BPM Atrial Rate : 39 BPM P-R Int : 198 ms QRS Dur : 122 ms QT Int : 490 ms P-R-T Axes : 60 -8 -15 degrees QTcB Int : 394 ms Marked sinus bradycardia Non-specific intra-ventricular conduction delay Minimal voltage criteria for LVH, may be normal variant ( Keshav product ) Abnormal ECG When compared with ECG of 20-Jul-2024 18:25, Vent. rate has decreased by 20 bpm Nonspecific T wave abnormality now evident in Anterior leads Referred By: Isauro Carrera Electronically Signed By: ALYCIA FUENTES MD
[2025-02-14 02:50] VITALS: BP 139/93; PULSE 50; RESP 16; TEMP 36.2; O2SAT 97
== END 2025-02-14 02:53 | disposition short-term general hospital (02) ==
PROVIDERS: Emergency Provider Emergency Medicine; PCP Registered Nurse
DX: K56.600 Partial intestinal obstruction, unspecified as to cause (principal); Z98.84 Bariatric surgery status; R10.12 Left upper quadrant pain; I10 Essential (primary) hypertension; Z79.899 Other long term (current) drug therapy
CPT/HCPCS: 36415; 74177; 80053; 82248; 85025; 93005; 96361; 96374; 96375; 99285; J2270; J2405; J7120; Q9967

== ENCOUNTER → 2025-02-13 21:48 | Outpatient (BNV) | payer MEDICAID, SELFPAY | PROVIDERS: Emergency Provider Emergency Medicine; PCP Registered Nurse; Visit Provider General Practice | DX: R14.0 Abdominal distension (gaseous) (principal) | CPT/HCPCS: 74177 ==

== ENCOUNTER → 2025-02-14 01:39 | Outpatient (BNV) | payer MEDICAID, SELFPAY | PROVIDERS: Emergency Provider Emergency Medicine; PCP Registered Nurse; Visit Provider Internal Medicine Cardiovascular Disease | DX: R00.1 Bradycardia, unspecified (principal); I45.4 Nonspecific intraventricular block | CPT/HCPCS: 93010 ==